=== PATIENT | female | born 1985 | race Caucasian/White ===

== ENCOUNTER 2021-11-24 17:25 | Emergency (ER) | payer OTHER ==
--- OUTSIDE RECORDS SUMMARY | 2021-11-24 17:28 | XMS REPORT | Continuity of Care Document ---
:1985 Author Organization [facility] t Address [address] [place] [address] Care Team Providers Name Role Phone PCP, DOES NOT HAVE A Primary Care Physician Unavailable TOMI Attending Clinician Unavailable MARIAA MAGANA Attending Clinician Unavailable ANENE Attending Clinician Unavailable Anene VIDEO OPERATOR Attending Clinician Payers Payer Name Policy Type Policy Number Effective Date Expiration Date [facility] [id number] 2021 MEDICAID 00:00:00 Problems Condition Condition Condition Status Onset Resolution Last Treating Co mments Source Name Details Category Date Date Treatment Clinician Date Normal Normal Disease Active Univers labor labor 1-09 ity of 00:00: [address] 38 weeks 38 weeks Disease Active Unive rs gestation gestation 1-09 ity of of of 00:00: [place] 00 [facility] Hyponatrem Hyponatrem Disease Active U dominic ia ia 08-15 ity of 00:00: [place] 00 [facility] Acute Acute Disease Active Univers cystitis cystitis 08-15 ity of without without 00:00: [place] hematuria hematuria 00 [facility] Liveborn Liveborn Disease Active Unive rs , of , of 1-09 [place] y of causey causey [place] , [place] dical born in born in [facility] by vaginal by vaginal delivery delivery Hemorrhoid Hemorrhoid Disease Active 2020-08 U dominic s, s, 2-29 ity of unspecifie unspecifie [place] 00 Medical hemorrhoid hemorrhoid Br anch type type Leg Leg Disease Active 2020-08 Univers swelling swelling 2-29 ity of in in 00:00: [place] 00 Medi tonie in third in third Branch trimester trimester Itching Itching Disease Active 2020-08 Univers 2-29 ity of 00:00: [place] [facility] Low back Low back Disease Active 2020-08 Unive rs pain pain 2-29 ity of during during 00:00: [place] 00 Medi tonie in third in third Branch trimester trimester Cough Cough Disease Active 2020-08 Univers 2-29 ity of 00:00: [place] 00 Medical Branch History of History of Disease Active 2020-08 U nivers 1-23 it y of depression depression [place] Medical currently currently Bran ch Gastroesop Gastroesop Disease Active U nivers hageal hageal 9-20 ity of reflux reflux 00:00: [place] disease disease 00 Medical without without Branch esophagiti esophagiti s s SHANTE SHANTE Disease Active Univers (stress (stress 9-20 ity of urinary urinary 00:00: [place] incontinen incontinen 00 Me dical ce, ce, Branch female) female) Morbid Morbid Disease Active Univers obesity obesity 6-24 ity of with body with body 00:00: [facility] s mass index mass index 00 Me dical of of Branch 40.0-49.9 40.0-49.9 High-risk High-risk Disease Active Uni vers 6-24 ity of in third in third 00:00: [place] trimester trimester 00 [facility] Branch Low serum Low serum Disease Active Uni vers vitamin D vitamin D 6-24 ity of 00:00: [place] 00 Medical Branch History of History of Disease Active U nivers hypothyroi hypothyroi 6-24 it y of dism dism 00:00: [place] 00 Medical Branch Allergies, Adverse Reactions, Alerts Allergy Allergy Status Severity Reaction(s) Onset Inactive Treating Comm ents Source Name Type Date Date Clinician Morphine Propensi Active Seizures Univ ers ty to 6-24 ity of adverse 00:00: [place] reaction 00 Medical s Branch MORPHINE DRUG Active Hiv Univers INGREDI 6-24 ity of 00:00: [place] 00 Medical Branch Social History Social Habit Start Date Stop Date Quantity Comments Source Exposure to Not sure University of SARS-CoV-2 [facility] (event) Branch Alcohol intake 2021-08-24 2021-08-24 Lifetime University of 00:00:00 00:00:00 non-drinker [facility] (finding) [place] Tobacco use and 2021-01-28 2021-01-28 Never used Universit y of exposure 00:00:00 00:00:00 [facility] Sex Ass[birth year] At [birth year] Universit y of 00:00:00 00:00:00 [facility] Smoking Status Start Date Stop Date Source Never smoker [facility] Medications Ordered Filled Start Stop Current Ordering Indication Dosage Frequency Signature Comments Components Source Medication Medication Date Date Medication? Clinician (SIG) Name Name Yes Take by Unive rs vit 1-18 mouth. ity of calc,iron,f 09:25: [place] [address] Medical ( Branch VITAMIN ORAL) ferrous Yes Take by Univer s sulfate 1-18 mouth. ity of (IRON ORAL) 09:25: [address] Yes Take by Unive rs vit 1-18 mouth. ity of calc,iron,f 09:25: [place] [address] Medical ( Branch VITAMIN ORAL) ferrous Yes Take by Univer s sulfate 1-18 mouth. ity of (IRON ORAL) 09:25: [address] SERTraline 2021- No [id number] 50mg Take 1 Univers (ZOLOFT) 50 08-24 tablet by it y of mg tablet 00:00: 05:59 mouth [place] 00 :00 daily for Medical 30 days. Branch traZODone 2021- No [id number] 50mg Take 1 U nivers 50 mg -24 09- tablet by ity of tablet 00:00: 05:59 mouth at [place] 00 :00 bedtime Medical for 30 Branch days. SERTraline 2021- No [id number] 50mg Take 1 Univers (ZOLOFT) 50 -24 09-18 tablet by it y of mg tablet 00:00: 05:59 mouth [place] 00 :00 daily for Medical 30 days. Branch traZODone 2021- No [id number] 50mg Take 1 U nivers 50 mg 1-18 -18 tablet by ity of tablet 00:00: 05:59 mouth at [place] 00 :00 bedtime Medical for 30 Branch days. acetaminoph Yes [id number] 1{capsu Take 1 Univers en-caff-but 1-12 le} capsule by it y of albital 00:00: mouth [place] (ESGIC) per 00 every 4 Medic al capsule (four) Branch hours as needed (headache) . cyclobenzap Yes [id number] 10mg Take 1 Univers rine 10 mg 1-12 tablet by ity of tablet 00:00: mouth 3 00 (three) Medical times Branch daily. acetaminoph Yes [id number] 1{capsu Take 1 Univers en-caff-but 1-12 le} capsule by it y of albital 00:00: mouth [place] (ESGIC) per 00 every 4 Medic al capsule (four) Branch hours as needed (headache) . cyclobenzap Yes [id number] 10mg Take 1 Univers rine 10 mg 1-12 tablet by ity of tablet 00:00: mouth 3 [place] 00 (three) Medical times Branch daily. Yes [id number] 1{tbl} Take 1 Univers vitamin 1-10 102 tablet by ity of w/FA tablet 00:00: mouth [place] 00 daily. Medical Branch docusate Yes [id number] 240mg Take 1 Univers calcium 240 1-10 102 capsule by it y of mg capsule 00:00: mouth [place] 00 daily as Medical needed for Branch Constipati on. ferrous Yes [id number] 325mg Take 1 Univers sulfate 325 1-10 102 tablet by ity of mg (65 mg 00:00: mouth 2 [place] iron) 00 (two) Medical tablet times Branch daily. ibuprofen Yes [id number] 600mg Take 1 Univers 600 mg 1-10 102 tablet by ity of tablet 00:00: mouth [place] 00 every 6 Medical (six) Branch hours as needed (Pain). Take with food or milk. Yes [id number] 1{tbl} Take 1 Univers vitamin 1-10 102 tablet by ity of w/FA tablet 00:00: mouth [place] 00 daily. Medical Branch docusate Yes [id number] 240mg Take 1 Univers calcium 240 1-10 102 capsule by it y of mg capsule 00:00: mouth once [place] 00 daily as Medical needed for Branch Constipati on. ferrous Yes [id number] 325mg Take 1 Univers sulfate 325 1-10 102 tablet by ity of mg (65 mg 00:00: mouth 2 [place] iron) 00 (two) Medical tablet times Branch daily. ibuprofen Yes [id number] 600mg Take 1 Univers 600 mg 1-10 102 tablet by ity of tablet 00:00: mouth [place] 00 every 6 Medical (six) Branch hours as needed (Pain). Take with food or milk. metoclopram 2020-08 No [id number] 10mg Take 1 Univers frank HCl 10 09-1318 tablet by ity of mg tablet 00:00: 00:00 mouth [place] 00 :00 every 6 Medical (six) Branch hours as needed for Nausea and Vomiting (N/V) or Gastroesop hageal reflux. metoclopram 2020-08 No [id number] 10mg Take 1 Univers frank HCl 10 09-1318 tablet by ity of mg tablet 00:00: 00:00 mouth [place] 00 :00 every 6 Medical (six) Branch hours as needed for Nausea and Vomiting (N/V) or Gastroesop hageal reflux. omeprazole 2020-08 Yes [id number] 40mg Take 1 Univers 40 mg 0-14 capsule by ity of capsule 00:00: mouth [place] 00 daily. Medical Branch omeprazole 2020-08 Yes [id number] 40mg Take 1 Univers 40 mg 0-14 capsule by ity of capsule 00:00: mouth [place] 00 daily. Medical Branch famotidine Yes [id number] 20mg Take 1 Univers 20 mg 9-20 tablet by ity of tablet 00:00: mouth 2 [place] 00 (two) Medical times Branch daily. famotidine Yes [id number] 20mg Take 1 Univers 20 mg 9-20 tablet by ity of tablet 00:00: mouth 2 [place] 00 (two) Medical times Branch daily. Immunizations Ordered Filled Immunization Date Status Comments [facility] e Immunization Name Name Rho (d) Immune 2021-08-16 Completed University of Globulin 00:00:00 [facility] Rho (d) Immune 2021-08-16 Completed University of Globulin 00:00:00 [facility] TDAP 2021-06-29 Completed University of 00:00:00 [facility] TDAP 2021-06-29 Completed University of 00:00:00 [facility] Rho (d) Immune 2021-06-08 Completed University of Globulin 00:00:00 [facility] Rho (d) Immune 2021-06-08 Completed University of Globulin 00:00:00 [facility] Vital Signs Vital Name Observation Time Observation Value Comments Source Systolic blood 2021-08-24 15:25:00 120 mm[Hg[facility] Diastolic blood 2021-08-24 15:25:00 82 mm[Hg] [facility] Heart rate 2021-08-24 15:25:00 86 /min [facility] Body height 2021-08-24 15:25:00 160 cm [facility] Body weight 2021-08-24 15:25:00 106.323 kg [facility] BMI 2021-08-24 15:25:00 41.52 kg/m2 [facility] Oxygen saturation 2021-08-24 15:25:00 98 /min [facility] in Arterial blood [facility] anch by Pulse oximetry Procedures This patient has no known procedures. Encounters Start End Encounter Admission Attending Care Care Encounter Source Date/Time Date/Time Type Type Clinicians Facility Department ID 2021-12-01 2021-12-01 Outpatient Gerson KRISHNA [facility] [id number] Univers 08:00:00 08:00:00 JOSE FRANCISCO [id number] ity o f [facility] 2021-10-06 2021-10-06 Outpatient MOUSTAPHA DEL CASTILLO [facility] [id number] Univers 16:15:00 16:15:00 [id number] ity [facility] 2021-09-29 2021-09-29 Outpatient MOUSTAPHA DEL CASTILLO [facility] [id number] Univers 16:15:00 16:15:00 [id number] [facility] 2021-09-16 2021-09-16 Outpatient Gerson CARY [facility] [id number] Univers 13:30:00 13:30:00 ELEAZAR bernal [facility] 2021-08-24 2021-08-[address] [facility] [id number] Univers 09:00:00 10:19:36 Visit [facility] [id number] it y of [place] [id number] [place] as JESSICA?BLEA [id number] In yung [address] MEDICAL OFFICE BUILDING 2021-08-24 2021-08-24 Outpatient R VIVIEN [facility] [id number] 09:00:00 10:19:36 ELEAZAR bernal [facility] Results This patient has no known results.
[2021-11-24] MEDS ORDERED: FAMOTIDINE 20 MG/2 ML VIAL IV ONE (18:11)
[2021-11-24 18:27] LABS: Absolute Lymphocytes (CBC) 2.4 K/uL (0.7-4.9); Hematocrit 37.9 % (36.0-45.0); Lymphocytes % 30.7 % (15.3-44.8); RBC Red Blood Cell Count 5.01 M/uL (3.86-4.86)
[2021-11-24 18:53] LABS: BUN Blood Urea Nitrogen 12 mg/dL (7-18); Bicarbonate 24 mmol/L (21-32); Glucose Level 81 mg/dL (74-106); Lipase 438 U/L (73-393); Potassium 3.5 mmol/L (3.5-5.1); Sodium Level 139 mmol/L (136-145); Troponin High Sensitivity < 3.0 pg/mL (<58.9)
[2021-11-24] MEDS ORDERED: MECLIZINE HCL 12.5 MG TAB ONE (19:03)
[2021-11-24] MEDS ORDERED: NA CHLORIDE 0.9% 1,000 ML ONE (19:15)
[2021-11-24 19:42] LABS: Urine Blood Negative (Negative); Urine Glucose Negative (Negative); Urine Protein Negative (Negative); Urine Specific Gravity 1.015 (1.005-1.030); Urine pH 5.5 (5.0-7.0)
[2021-11-24 19:47] LABS: Urine Specific Gravity/Preg 1.015 (1.005-1.030)
--- NOTE | 2021-11-24 20:14 | RAD REPORT ---
EXAM DESCRIPTION: [place] Single View11/24/2021 6:59 pm CLINICAL HISTORY: Shortness of breath COMPARISON: none FINDINGS: The lungs appear clear of acute infiltrate. The heart is normal size IMPRESSION: No acute abnormalities displayed
--- NOTE | 2021-11-24 20:16 | RAD REPORT ---
EXAM DESCRIPTION: CT - Chest For Pe Angio - 11/24/2021 8:11 pm CLINICAL HISTORY: sob COMPARISON: None. TECHNIQUE: Dynamically enhanced axial 3 mm thick images of the chest were obtained during administra tion of <100> mL Isovue 370 IV contrast. Coronal and oblique reconstruction images were generated and reviewed. Exam utilizes a protocol for optimal evaluation of pulmonary arterial tree. Maximum intensity projections 3D imaging was utilized All CT scans are performed using dose optimization technique as appropriate and may include automated exposure control or mA/KV adjustment according to patient size. FINDINGS: A pulmonary embolus is not seen. A thoracic aortic aneurysm is not noted. A pleural effusion is not seen. A pericardial effusion is not seen. A lung consolidation is not present. 19 millimeter splenic lesion. Hounsfield unit 19 IMPRESSION: Negative for a pulmonary embolism. 19 millimeter splenic lesion probably benign. It is recommended that the patient have a followup ultr asound in 3 months for re-evaluation
--- NOTE | 2021-11-24 20:32 | ER ---
Nurse's Notes [facility] Name: Marivel Loya Age: 36 yrs Sex: Female : 1985 Arrival Date: 11/24/2021 Time: 17:26 Bed 23 Private MD: Jose Valadez E Diagnosis: Chest pain, unspecified Presentation: 11/24 17:30 Chief complaint: Patient states: past 4-5 days has been feeling dizzy and her back iw between her shoulder blades hurts and is having heart burn. Coronavirus screen: At this time, the client does not indicate any symptoms associated with coronavirus-19. Ebola Screen: Patient negative for fever greater than or equal to 101.5 degrees Fahrenheit, and additional compatible Ebola Virus Disease symptoms Patient denies exposure to infectious person. Patient denies travel to an Ebola-affected area in the 21 days before illness onset. No symptoms or risks identified at this time. Initial Sepsis Screen: Does the patient meet any 2 criteria? No. Patient's initial sepsis screen is negative. Does the patient have a suspected source of infection? No. Patient's initial sepsis screen is negative. Risk Assessment: Do you want to hurt yourself or someone else? Patient reports no desire to harm self or others. Onset of symptoms was November 20, 2021. 17:30 Method Of Arrival: Ambulatory iw 17:30 Acuity: JOHN 3 iw Historical: - Allergies: 17:32 Morphine; iw - PSHx: 17:31 Tonsillectomy; Cholecystectomy; iw Vital Signs: 17:32 BP 134 / 68; Pulse 89; Resp 16; Weight 111.13 kg; Height 5 ft. 3 in. (160.02 cm); iw 17:32 Body Mass Index 43.40 (111.13 kg, 160.02 cm) iw ED Course: 17:26 Patient arrived in ED. am2 17:26 Jose Valadez MD is Private Physician. am2 17:26 [facility]agen[facility]C [facility] la1 17:26 Saroj Lemos MD is Attending Physician. la1 17:31 Triage completed. iw 18:04 Sammy Torres, RN is Primary Nurse. jb4 19:01 XRAY Chest (1 view) In Process Unspecified. EDMS 20:13 Chest For PE Angio CT In Process Unspecified. EDMS 21:00 No provider procedures requiring assistance completed. fu 21:30 IV discontinued, bleeding controlled, Pressure dressing applied. fu Administered Medications: 18:22 Drug: Pepcid (famotidine) 20 mg Route: IVP; Site: right forearm; jb4 19:04 Drug: Meclizine 25 mg Route: PO; jb4 19:14 Drug: NS 0.9% 1000 ml Route: IV; Rate: 1000 ml; Site: right forearm; jb4 20:41 Drug: KLONopin (clonazePAM) 0.5 mg Route: PO; fu 21:33 Follow up: Response: Anxiety decreased fu Outcome: 20:31 Discharge ordered by . la1 21:33 Discharged to home ambulatory. fu 21:33 Condition: good 21:33 Discharge instructions given to patient, Instructed on discharge instructions, follow up and referral plans. Demonstrated understanding of instructions, follow-up care, Prescriptions given X 0 21:54 Patient left the ED. tw5 Signatures: Dispatcher [employer] EDNY Sandra oSod RN Will Sanchez, DATA CONVERSION ANALYST-C DATA CONVERSION ANALYST-Cla1 Sammy Torres RN RN jb4 Antionette Resendiz Felix, Diane Churchill RN tw5
--- NOTE | 2021-11-24 20:32 | EDPHYS ---
Physician Documentation [facility] Name: Marivel Loya Age: 36 yrs Sex: Female : 1985 Arrival Date: 11/24/2021 Time: 17:26 Bed 23 Private MD: Jose Valadez E ED Physician Saroj Lemos HPI: 11/24 17:38 This 36 yrs old Female presents to ER via Ambulatory with complaints of Dizziness, la1 Chest Pain, Back Pain - soreness. 17:38 The patient or guardian reports chest pain that is located primarily in the epigastric la1 area. The pain radiates to the left shoulder, the left scapula, back. Associated signs and symptoms: Pertinent positives: palpitations, shortness of breath, Pertinent negatives: diaphoresis, nausea, near syncope. Duration: The patient or guardian reports multiple episodes, with no pattern. Modifying factors: The symptoms are alleviated by nothing. the symptoms are aggravated by nothing. Severity of pain: At its worst the pain was moderate in the emergency department the pain has improved. Patient reports that for the last 3 to 4 days she has felt that she has had palpitations, dizziness, epigastric pain along with pain over her left shoulder to her back.. Historical: - Allergies: 17:32 Morphine; iw - PSHx: 17:31 Tonsillectomy; Cholecystectomy; iw ROS: 17:39 Constitutional: Negative for fever, chills, and weight loss, Eyes: Negative for injury, la1 pain, redness, and discharge, ENT: Negative for injury, pain, and discharge, Neck: Negative for injury, pain, and swelling. 17:39 Abdomen/GI: Positive for epigastric pain Back: Positive for back pain 17:39 Skin: Negative for injury, rash, and discoloration, Neuro: Negative for headache, weakness, numbness, tingling, and seizure, Psych: Negative for depression, anxiety, suicide ideation, homicidal ideation, and hallucinations. 17:39 Cardiovascular: Positive for chest pain, orthopnea. 17:39 Respiratory: Positive for dyspnea on exertion. Exam: 17:40 Constitutional: This is a well developed, well nourished patient who is awake, alert, la1 and in no acute distress. Head/Face: Normocephalic, atraumatic. Eyes: Pupils equal round and reactive to light, extra-ocular motions intact. ENT: Nares patent. No nasal discharge, no septal abnormalities noted. Neck: Trachea midline, Supple, full range of motion without nuchal rigidity Chest/axilla: Normal chest wall appearance and motion. Nontender with no deformity. No lesions are appreciated. Cardiovascular: Regular rate and rhythm with a normal S1 and S2. No gallops, murmurs, or rubs. Normal PMI, no JVD. No pulse deficits. Respiratory: Lungs have equal breath sounds bilaterally, clear to auscultation and percussion. Abdomen/GI: Soft, non-tender, with normal bowel sounds. MS/ Extremity: Pulses equal, no cyanosis. Neurovascular intact. Full, normal range of motion. Neuro: Awake and alert, GCS 15, oriented to person, place, time, and situation. 19:05 ECG was reviewed by the Attending Physician. la1 Vital Signs: 17:32 BP 134 / 68; Pulse 89; Resp 16; Weight 111.13 kg; Height 5 ft. 3 in. (160.02 cm); iw 17:32 Body Mass Index 43.40 (111.13 kg, 160.02 cm) iw MDM: 17:35 Patient medically screened. gudelia 20:29 Data reviewed: vital signs, nurses notes, radiologic studies, CT scan, plain films, and la1 as a result, I will discharge patient. Data interpreted: Pulse oximetry: on room air is 98 %. Interpretation: normal. Counseling: I had a detailed discussion with the patient and/or guardian regarding: the historical points, exam findings, and any diagnostic results supporting the discharge/admit diagnosis, lab results, radiology results, the need for outpatient follow up, a cut off machine helper, a family practitioner, to return to the emergency department if symptoms worsen or persist or if there are any questions or concerns that arise at home. ED course: Cardiac work-up including CT PE protocol negative for acute findings, did notify patient of 19 mm lesion on the spleen that recommended 3-month follow-up ultrasound. Patient appears to be very anxious, tearful at this time but understanding. Suspect this is somewhat related to anxiety patient does have cardiology appointment early next week as well lined up. Instructed patient to keep her appointment with cardiology return to the emergency department for any new or worsening symptoms, will provide patient with dose of oral anxiolytic in the emergency department while she waits for her ride to see if this helps with her symptoms.. 11/24 17:37 Order name: Basic Metabolic Panel; Complete Time: 18:55 la1 11/24 17:37 Order name: CBC with Diff; Complete Time: 18:55 la1 11/24 17:37 Order name: D-Dimer; Complete Time: 18:55 la1 11/24 17:37 Order name: Troponin HS; Complete Time: 18:55 la1 11/24 17:37 Order name: Lipase; Complete Time: 18:55 la1 11/24 17:37 Order name: TSH; Complete Time: 18:55 la1 11/24 17:37 Order name: XRAY Chest (1 view); Complete Time: 20:18 la1 11/24 18:46 Order name: Chest For PE Angio CT; Complete Time: 20:18 la1 11/24 19:42 Order name: Urine Dipstick-Ancillary; Complete Time: 19:59 EDMS 11/24 19:43 Order name: Urine --Ancillary (enter results); Complete Time: 19:59 ds4 11/24 17:37 Order name: EKG; Complete Time: 17:37 la11/24 17:37 Order name: Cardiac monitoring; Complete Time: 18:04 la1 11/24 17:37 Order name: EKG - Nurse/Tech; Complete Time: 17:55 la1 11/24 17:37 Order name: IV Saline Lock; Complete Time: 18:56 la1 11/24 17:37 Order name: Labs collected and sent; Complete Time: 18:04 la1 11/24 17:37 Order name: O2 Per Protocol; Complete Time: 18:04 la11/24 17:37 Order name: O2 Sat Monitoring; Complete Time: 18:04 la1 EC:05 Rate is 86 beats/min. Rhythm is regular. QRS Wheeler is Normal. AR interval is normal. QRS la1 interval is normal. QT interval is normal. No Q waves. T waves are Inverted in leads aVR, V1. No ST changes noted. Clinical impression: Normal ECG. Interpreted by me. Reviewed by me. Administered Medications: 18:22 Drug: Pepcid (famotidine) 20 mg Route: IVP; Site: right forearm; jb4 19:04 Drug: Meclizine 25 mg Route: PO; jb4 19:14 Drug: NS 0.9% 1000 ml Route: IV; Rate: 1000 ml; Site: right forearm; jb4 20:41 Drug: KLONopin (clonazePAM) 0.5 mg Route: PO; fu 21:33 Follow up: Response: Anxiety decreased fu Disposition Summary: 11/24/21 20:31 Discharge Ordered Location: Home la1 Problem: new la1 Symptoms: have improved la1 Condition: Stable la1 Diagnosis - Chest pain, unspecified la1 Followup: la1 - With: Private Physician - When: 2 - 3 days - Reason: Recheck today's complaints, Re-evaluation by your physician Followup: la1 - With: Emergency Department - When: As needed - Reason: Worsening of condition Discharge Instructions: - Discharge Summary Sheet la1 - Nonspecific Chest Pain, Adult la1 - Food Choices for Gastroesophageal Reflux Disease, Adult la1 - Gastroesophageal Reflux Disease, Adult la1 - Generalized Anxiety Disorder, Adult la1 Forms: - Medication Reconciliation Form la1 - Thank You Letter la1 Addendum: 11/26/2021 07:52 Co-signature as Attending Physician, Saroj Lemos MD I agree with the assessment and c jaramillo plan of care. Signatures: Dispatcher [employer] Saroj Grider MD MD cha Williams, Irene, RN RN iw Will Cartagena, FEATHER TRIMMER-C FEATHER TRIMMER-Cla1 Sammy Torres RN RN jb4 Yg Dominguez RN RN
[2021-11-24] MEDS ORDERED: clonazePAM 0.5 MG TAB ONE (20:41)
[2021-11-25 04:12] VITALS: BP 134/68
--- NOTE | 2021-11-25 07:55 | EKG ---
Test Date: 2021-11-24 Test Time: 17:54:23 Tile Applicator: SHAMAR MEASUREMENT RESULTS: Intervals: Rate: 86 FL: 164 QRSD: 86 QT: 362 QTc: 433 [place]: P: 47 FL: 164 QRS: 7 T: 42 INTERPRETIVE STATEMENTS: Normal sinus rhythm Normal ECG No previous ECG available for comparison Electronically Signed On 11-25-21 07:54:27 CDT by Kanu Steiner
== END 2021-11-24 21:54 | disposition home or self-care (01) ==
LOC: ER 17:25
DX: R07.9 Chest pain, unspecified (principal); R00.2 Palpitations; R10.13 Epigastric pain; R06.00 Dyspnea, unspecified; Z88.5 Allergy status to narcotic agent
CPT/HCPCS: 93005; 85025; 80048; 36415; 81025; 85379; 84443; 81003; 84484; 83690; 71275; 71045; 96374; 99283; Q9967; J8597; J7030; J3490

== ENCOUNTER 2021-11-29 00:27 | Emergency (ER) | payer OTHER ==
--- OUTSIDE RECORDS SUMMARY | 2021-11-29 00:31 | XMS REPORT | Continuity of Care Document ---
:1985 Author Organization [facility] t Address [address] [place] [address] Care Team Providers Name Role Phone PCP, DOES NOT HAVE A Primary Care Physician Unavailable TOMI Attending Clinician Unavailable MARIAA MAGANA Attending Clinician Unavailable ANENE Attending Clinician Unavailable Anene CLIENT SERVICE EXECUTIVE Attending Clinician Payers Payer Name Policy Type Policy Number Effective Date Expiration Date [facility] [id number] 2021 MEDICAID 00:00:00 Problems Condition Condition Condition Status Onset Resolution Last Treating Co mments Source Name Details Category Date Date Treatment Clinician Date Normal Normal Disease Active Univers labor labor 08-15 ity of 00:00: [address] 38 weeks 38 weeks Disease Active Unive rs gestation gestation 08-15 ity of of of 00:00: [place] 00 [facility] Hyponatrem Hyponatrem Disease Active U dominic ia ia 08-15 ity of 00:00: [address] Acute Acute Disease Active Univers cystitis cystitis 08-15 ity of without without 00:00: [place] hematuria hematuria 00 [facility] Liveborn Liveborn Disease Active Unive rs , of infant, of 09 it y of causey causey 00:00: Angeli s , , 00 Me dical born in born in [facility] by vaginal by vaginal delivery delivery Hemorrhoid Hemorrhoid Disease Active 2020-08 U dominic s, s, 2-29 ity of unspecifie [place]if[place] 00 Medical hemorrhoid hemorrhoid Br anch type type Leg Leg Disease Active 2020-08 Univers swelling swelling 2-29 ity of in in 00:00: [place] 00 Medi tonie in third in third Branch trimester trimester Itching Itching Disease Active 2020-08 Univers 2-29 ity of 00:00: [place] [facility] Low back Low back Disease Active 2020-08 Unive rs pain pain 2-29 ity of during during 00:00: [place] 00 Medi tonie in third in third Branch trimester trimester Cough Cough Disease Active 2020-08 Univers 2-29 ity of 00:00: [place] 00 Medical Branch History of History of Disease Active 2020-08 U nivers 1-23 it y of depression depression 00:00: Tim keenan , , 00 Medical currently currently Bran ch Gastroesop Gastroesop Disease Active U nivers hageal hageal 9-20 ity of reflux reflux 00:00: [place] disease disease 00 Medical without without Branch esophagiti esophagiti s s SHANTE SHANTE Disease Active Univers (stress (stress 9-20 ity of urinary urinary 00:00: [place] incontinen incontinen 00 Me dical ce, ce, Branch female) female) Morbid Morbid Disease Active Univers obesity obesity 6-24 ity of with body with body 00:00: [facility] s mass index mass index 00 Me dical of of Branch 40.0-49.9 40.0-49.9 High-risk High-risk Disease Active Uni vers 6-24 ity of in third in third 00:00: [place] trimester trimester 00 [facility] Branch Low serum Low serum Disease Active Uni vers vitamin D vitamin D 6-24 ity of 00:00: [place] 00 Medical Branch History of History of Disease Active U nivers hypothyroi hypothyroi 6-24 it y of dism dism 00:00: [place] 00 Medical Branch Allergies, Adverse Reactions, Alerts Allergy Allergy Status Severity Reaction(s) Onset Inactive Treating Comm ents Source Name Type Date Date Clinician Morphine Propensi Active Hiv Seizures Univ ers ty to 6-24 ity of adverse 00:00: [place] reaction 00 Medical s Branch MORPHINE DRUG Active Hiv Univers INGREDI 6-24 ity of 00:00: [address] Social History Social Habit Start Date Stop Date Quantity Comments Source Exposure to Not sure University SARS-CoV-2 [facility] (event) Branch Alcohol intake 2021-08-24 2021-08-24 Lifetime University of 00:00:00 00:00:00 non-drinker [facility] (finding) [place] Tobacco use and 2021-01-28 2021-01-28 Never used Universit y of exposure 00:00:00 00:00:00 [facility] Sex [birth year] Universit y of 00:00:00 00:00:00 [facility] Smoking Status Start Date Stop Date Source Never smoker [facility] Medications Ordered Filled Start Stop Current Ordering Indication Dosage Frequency Signature Comments Components Source Medication Medication Date Date Medication? Clinician (SIG) Name Name Yes Take by Unive rs vit 1-18 mouth. ity of calc,iron,f 09:25: [place] [address] Medical ( Branch VITAMIN ORAL) ferrous Yes Take by Univer s sulfate 1-18 mouth. ity of (IRON ORAL) 09:25: [address] Yes Take by Unive rs vit 1-18 mouth. ity of calc,iron,f 09:25: [place] [address] Medical ( Branch VITAMIN ORAL) ferrous Yes Take by Univer s sulfate 1-18 mouth. ity of (IRON ORAL) 09:25: [address] SERTraline 2- No [id number] 50mg Take 1 Univers (ZOLOFT) 50 08-24 tablet by it y of mg tablet 00:00: 05:59 mouth [place] 00 :00 daily for Medical 30 days. Branch traZODone 2021- No [id number] 50mg Take 1 U nivers 50 mg -18 -18 tablet by ity of tablet 00:00: 05:59 mouth at [place] 00 :00 bedtime Medical for 30 Branch days. SERTraline 2021- No [id number] 50mg Take 1 Univers (ZOLOFT) 50 -18 -18 tablet by it y of mg tablet 00:00: 05:59 mouth [place] 00 :00 daily for Medical 30 days. Branch traZODone 2021- No [id number] 50mg Take 1 U nivers 50 mg 1-18 -18 tablet by ity of tablet 00:00: 05:59 mouth at [place] 00 :00 bedtime Medical for 30 Branch days. acetaminoph Yes [id number] 1{capsu Take 1 Univers en-caff-but 1-12 le} capsule by it y of albital 00:00: mouth [place] (ESGIC) per 00 every 4 Medic al capsule (four) Branch hours as needed (headache) . cyclobenzap Yes [id number] 10mg Take 1 Univers rine 10 mg 1-12 tablet by ity of tablet 00:00: mouth 3 [place] 00 (three) Medical times Branch daily. acetaminoph Yes [id number] 1{capsu Take 1 Univers en-caff-but 1-12 le} capsule by it y of albital 00:00: mouth [place] (ESGIC) per 00 every 4 Medic al capsule (four) Branch hours as needed (headache) . cyclobenzap Yes [id number] 10mg Take 1 Univers rine 10 mg 1-12 tablet by ity of tablet 00:00: mouth 3 [place] 00 (three) Medical times Branch daily. Yes [id number] 1{tbl} Take 1 Univers vitamin 1-10 102 tablet by ity of w/FA tablet 00:00: mouth [place] 00 daily. Medical Branch docusate Yes [id number] 240mg Take 1 Univers calcium 240 1-10 102 capsule by it y of mg capsule 00:00: mouth once [place] 00 daily as Medical needed for Branch Constipati on. ferrous Yes [id number] 325mg Take 1 Univers sulfate 325 1-10 102 tablet by ity of mg (65 mg 00:00: mouth 2 [place] iron) 00 (two) Medical tablet times Branch daily. ibuprofen Yes [id number] 600mg Take 1 Univers 600 mg 1-10 102 tablet by ity of tablet 00:00: mouth [place] 00 every 6 Medical (six) Branch hours as needed (Pain). Take with food or milk. 2021- Yes [id number] 1{tbl} Take 1 Univers vitamin 1-10 102 tablet by ity of w/FA tablet 00:00: mouth [place] 00 daily. Medical Branch docusate Yes [id number] 240mg Take 1 Univers calcium 240 1-10 102 capsule by it y of mg capsule 00:00: mouth once [place] 00 daily as Medical needed for Branch Constipati on. ferrous Yes [id number] 325mg Take 1 Univers sulfate 325 1-10 102 tablet by ity of mg (65 mg 00:00: mouth 2 [place] iron) 00 (two) Medical tablet times Branch daily. ibuprofen Yes [id number] 600mg Take 1 Univers 600 mg 1-10 102 tablet by ity of tablet 00:00: mouth [place] 00 every 6 Medical (six) Branch hours as needed (Pain). Take with food or milk. metoclopram 2020-08- No [id number] 10mg Take 1 Univers frank HCl 10 2-02 04-18 tablet by ity of mg tablet 00:00: 00:00 mouth [place] 00 :00 every 6 Medical (six) Branch hours as needed for Nausea and Vomiting (N/V) or Gastroesop hageal reflux. metoclopram 2020-08- No [id number] 10mg Take 1 Univers frank HCl 10 2-02 04-18 tablet by ity of mg tablet 00:00: 00:00 mouth [place] 00 :00 every 6 Medical (six) Branch hours as needed for Nausea and Vomiting (N/V) or Gastroesop hageal reflux. omeprazole 2020-08 Yes [id number] 40mg Take 1 Univers 40 mg 0-14 capsule by ity of capsule 00:00: mouth [place] 00 daily. Medical Branch omeprazole 2020-08 Yes [id number] 40mg Take 1 Univers 40 mg 0-14 capsule by ity of capsule 00:00: mouth [place] 00 daily. Medical Branch famotidine Yes [id number] 20mg Take 1 Univers 20 mg 9-20 tablet by ity of tablet 00:00: mouth 2 [place] 00 (two) Medical times Branch daily. famotidine Yes [id number] 20mg Take 1 Univers 20 mg 9-20 tablet by ity of tablet 00:00: mouth 2 [place] 00 (two) Medical times Branch daily. Immunizations Ordered Filled Immunization Date Status Comments Sourc e Immunization Name Name Rho (d) Immune 2021-08-16 Completed University of Globulin 00:00:00 [facility] Rho (d) Immune 2021-08-16 Completed University of Globulin 00:00:00 [facility] TDAP 2021-06-29 Completed University of 00:00:00 [facility] TDAP 2021-06-29 Completed University of 00:00:00 [facility] Rho (d) Immune 2021-06-08 Completed University of Globulin 00:00:00 [facility] Rho (d) Immune 2021-06-08 Completed University of Globulin 00:00:00 [facility] Vital Signs Vital Name Observation Time Observation Value Comments Source Systolic blood 2021-08-24 15:25:00 120 mm[Hg[facility] Diastolic blood 2021-08-24 15:25:00 82 mm[Hg] [facility] Heart rate 2021-08-24 15:25:00 86 /min [facility] Body height 2021-08-24 15:25:00 160 cm [facility] Body weight 2021-08-24 15:25:00 106.323 kg [facility] BMI 2021-08-24 15:25:00 41.52 kg/m2 [facility] Oxygen saturation 2021-08-24 15:25:00 98 /min [facility] in Arterial blood [facility] anch by Pulse oximetry Procedures This patient has no known procedures. Encounters Start End Encounter Admission Attending Care Care Encounter Source Date/Time Date/Time Type Type Clinicians Facility Department ID 2021-12-01 2021-12-01 Outpatient Gerson KRISHNA [facility] [id number] Univers 08:00:00 08:00:00 JOSE FRANCISCO [id number] ity o f [facility] 2021-10-06 2021-10-06 Outpatient MOUSTAPHA DEL CASTILLO [facility] [id number] Univers 16:15:00 [facility]15:[id number] 2021-09-29 Outpatient MOUSTAPHA DEL CASTILLO [facility] [id number] Univers 16:15:00 16:15:00 [id number] [facility] 2021-09-16 2021-09-16 Outpatient Gerson CARY [facility] [id number] Univers 13:30:00 13:30:00 ELEAZAR bernal [facility] 2021-08-24 2021-08-[address] [facility] [id number] Univers 09:00:00 10:19:36 Visit [facility] [id number] it y of [place] [id number] [place] as JESSICA?BLEA [id number] Ny yung [address] MEDICAL OFFICE BUILDING 2021-08-24 2021-08-24 Outpatient Gerson CARY [facility] [id number] Univers 09:00:00 10:19:36 ELEAZAR bernal [facility] Results This patient has no known results.
[2021-11-29 01:40] LABS: Absolute Lymphocytes (CBC) 2.3 K/uL (0.7-4.9); Hematocrit 34.4 % (36.0-45.0); Lymphocytes % 29.1 % (15.3-44.8); MPV 7.9 fL (7.6-11.3); RBC Red Blood Cell Count 4.62 M/uL (3.86-4.86)
[2021-11-29 01:54] LABS: Potassium 3.6 mmol/L (3.5-5.1); Troponin High Sensitivity 3.1 pg/mL (<58.9)
[2021-11-29] MEDS ORDERED: MECLIZINE HCL 12.5 MG TAB ONE (01:56)
[2021-11-29] MEDS ORDERED: FAMOTIDINE 20 MG/2 ML VIAL IV ONE (01:57)
[2021-11-29] MEDS ORDERED: NA CHLORIDE 0.9% 500 ML ONE (01:57)
[2021-11-29] MEDS ORDERED: KETOROLAC 30 MG/ML INJ ONE (01:57)
[2021-11-29] MEDS ORDERED: ONDANSETRON 4 MG/2 ML VIAL ONE (01:57)
[2021-11-29] MEDS ORDERED: DIAZEPAM 10 MG/2 ML INJ SYRINGE ONE (04:21)
--- NOTE | 2021-11-29 06:41 | ER ---
Nurse's Notes [facility] Name: Marivel Loya Age: 36 yrs Sex: Female : 1985 Arrival Date: 11/29/2021 Time: 00:36 Bed 20 Private MD: Diagnosis: Chest pain, unspecified;Abdominal pain, unspecified;Upper abdominal pain, unspecified;Epigastric pain;Dizziness and giddiness;Anxiety disorder, unspecified Presentation: 11/29 00:39 Chief complaint: EMS states: pt was asleep at home and felt like her heart popped and kd3 it caused her to wake up in panic. pt had medications prescribed to her for anxiety but she had not been taking them. pt currently complaining of chest tightness and numbness in her back. Coronavirus screen: Vaccine status: Patient reports being unvaccinated. Ebola Screen: No symptoms or risks identified at this time. Initial Sepsis Screen: Does the patient meet any 2 criteria? No. Patient's initial sepsis screen is negative. Does the patient have a suspected source of infection? No. Patient's initial sepsis screen is negative. Risk Assessment: Do you want to hurt yourself or someone else? Patient reports no desire to harm self or others. Onset of symptoms was November 29, 2021. 00:39 Method Of Arrival: EMS kd3 00:39 Acuity: JOHN 3 kd3 Triage Assessment: 00:43 General: Appears uncomfortable, Behavior is anxious. Pain: Complains of pain in xiphoid kd3 area Pain radiates to thoracic area. 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 - Social history:: Smoking status: unknown. Screenin:44 Abuse screen: Denies threats or abuse. Denies injuries from another. Nutritional kd3 screening: No deficits noted. Tuberculosis screening: No symptoms or risk factors identified. Fall Risk None identified. Assessment: 03:09 General: Appears uncomfortable, Behavior is anxious, crying. Neuro: Level of kd3 Consciousness is awake, alert, obeys commands, Oriented to person, place, time, situation. Cardiovascular: Patient's skin is warm and dry. Respiratory: Airway is patent Trachea midline Respiratory effort is even, unlabored, Respiratory pattern is regular, symmetrical. GI: No signs and/or symptoms were reported involving the gastrointestinal system. : No signs and/or symptoms were reported regarding the genitourinary system. EENT: No signs and/or symptoms were reported regarding the EENT system. Derm: Skin is intact, Skin is pink, warm \T\ dry. 04:00 Reassessment: No changes from previously documented assessment. kd3 05:34 Reassessment: pt to take 1 of her own anti anxiety medication. clonazepam 0.5 mg taken. kd3 pt being monitored. pt now resting comfortably in bed. no adverse reaction. vital stable. Vital Signs: 00:39 BP 120 / 61; Pulse 81; Resp 18; Temp 98.2; Pulse Ox 99% on R/A; Weight 111.13 kg; kd3 Height 5 ft. 3 in. (160.02 cm); Pain 2/10; 03:10 BP 122 / 63; Pulse 71; Resp 14; Pulse Ox 98% on R/A; kd3 05:36 BP 115 / 62; Pulse 61; Resp 16; Pulse Ox 98% on R/A; kd3 06:59 BP 121 / 60; Pulse 61; Resp 17; Pulse Ox 99% on R/A; kd3 00:39 Body Mass Index 43.40 (111.13 kg, 160.02 cm) kd3 ED Course: 00:36 Patient arrived in ED. mw2 00:38 Jenny Pelletier, SKIP is Primary Nurse. kd3 00:43 Triage completed. kd3 00:43 Arm band placed on right wrist. kd3 00:44 Patient has correct armband on for positive identification. Placed in gown. Bed in low kd3 position. Side rails up X 1. 00:46 En Garcia MD is Attending Physician. kdr 01:15 XRAY Chest (1 view) In Process Unspecified. EDMS 01:28 Inserted saline lock: 22 gauge in right wrist, using aseptic technique. sm5 02:37 CT Head Brain wo Cont In Process Unspecified. EDMS 06:58 No provider procedures requiring assistance completed. IV discontinued, intact, kd3 bleeding controlled, No redness/swelling at site. Pressure dressing applied. Administered Medications: 02:08 Drug: Pepcid (famotidine) 20 mg Route: IVP; Site: right wrist; kd3 07:00 Follow up: Response: No adverse reaction kd3 02:08 Not Given (Patient Refused): Ketorolac 15 mg IVP once kd3 02:08 Drug: Meclizine 25 mg Route: PO; kd3 07:00 Follow up: Response: No adverse reaction kd3 02:09 Drug: Zofran (Ondansetron) 4 mg Route: IVP; Site: right wrist; kd3 07:00 Follow up: Response: No adverse reaction kd3 02:09 Drug: NS 0.9% 500 ml Route: IV; Rate: bolus; Site: right wrist; kd3 07:00 Follow up: Rate change 100 ml; IV Status: Completed infusion kd3 07:00 Follow up: Response: No adverse reaction kd3 04:46 CANCELLED (iv infiltration ): Valium (diazepam) 5 mg IVP once kd3 Outcome: 06:40 Discharge ordered by . kdr 06:58 Discharged to home ambulatory. kd3 06:58 Condition: stable 06:58 Discharge instructions given to patient, Instructed on discharge instructions, follow up and referral plans. medication usage, Demonstrated understanding of instructions, follow-up care, medications. 07:04 Patient left the ED. bp Signatures: Dispatcher [employer] EDMS En Garcia MD MD kdr Peltier, Brian, RN RN bp Alda Henry 2 Jenny Pelletier RN RN kd3 Cara Dumont RN RN sm5
--- NOTE | 2021-11-29 06:41 | EDPHYS ---
Physician Documentation [facility] Name: Marivel Loya Age: 36 yrs Sex: Female : 1985 Arrival Date: 11/29/2021 Time: 00:36 Bed 20 Private MD: ED Physician En Garcia HPI: 11/29 04:08 This 36 yrs old Female presents to ER via EMS with complaints of Epigastric Pain. kdr 04:08 The patient or guardian reports chest pain that is located primarily in the substernal kdr area, anterior chest wall, left. The pain does not radiate. Associated signs and symptoms: Pertinent positives: dizziness, headache, lightheadedness, nausea, shortness of breath, Pertinent negatives: cough, diaphoresis, recent travel, shortness of breath, syncope, vomiting. The chest pain is described as aching, dull, a pressure, Actually felt like she had a popping that occurred. That awoke her from sleep and then she asked her to help her. Duration: The patient or guardian reports a single episode, that is still ongoing, but improving. Modifying factors: The symptoms are alleviated by nothing. the symptoms are aggravated by nothing. Severity of pain: At its worst the pain was moderate severe in the emergency department the pain is unchanged. Patient states that she has a history of panic attacks but this does not feel like her prior attacks. She is she states that this feels different" she cannot necessarily describe how it is different.. The patient has not recently seen a physician. 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 - Social history:: Smoking status: unknown. ROS: 04:08 Constitutional: Negative for fever, chills, and weight loss, Eyes: Negative for injury, kdr pain, redness, and discharge, ENT: Negative for injury, pain, and discharge, Neck: Negative for injury, pain, and swelling, Respiratory: Negative for shortness of breath, cough, wheezing, and pleuritic chest pain, Abdomen/GI: Negative for abdominal pain, nausea, vomiting, diarrhea, and constipation, Back: Negative for injury and pain, : Negative for injury, bleeding, discharge, and swelling, MS/Extremity: Negative for injury and deformity, Skin: Negative for injury, rash, and discoloration, Neuro: Negative for headache, weakness, numbness, tingling, and seizure activity. Psych: Negative for depression, anxiety, suicide ideation, homicidal ideation, and hallucinations, Allergy/Immunology: Negative for hives, rash, and allergies, Endocrine: Negative for neck swelling, polydipsia, polyuria, polyphagia, and marked weight changes, Hematologic/Lymphatic: Negative for swollen nodes, abnormal bleeding, and unusual bruising. 04:08 Neuro: Positive for She states that with the initial pain, her tongue was numb for a brief period. Exam: 04:08 Constitutional: This is a well developed, well nourished patient who is awake, alert, kdr and in mild distress. Head/Face: Normocephalic, atraumatic. Eyes: Pupils equal round and reactive to light, extra-ocular motions intact. Lids and lashes normal. Conjunctiva and sclera are non-icteric and not injected. Cornea within normal limits. Periorbital areas with no swelling, redness, or edema. Neck: Trachea midline, no thyromegaly or masses palpated, and no cervical lymphadenopathy. Supple, full range of motion without nuchal rigidity, or vertebral point tenderness. No Meningismus. Cardiovascular: Regular rate and rhythm with a normal S1 and S2. No gallops, murmurs, or rubs. Normal PMI, no JVD. No pulse deficits. Respiratory: Lungs have equal breath sounds bilaterally, clear to auscultation and percussion. No rales, rhonchi or wheezes noted. No increased work of breathing, no retractions or nasal flaring. Abdomen/GI: Soft, non-tender, with normal bowel sounds. No distension or tympany. No guarding or rebound. No evidence of tenderness throughout. Back: No spinal tenderness. No costovertebral tenderness. Full range of motion. Skin: Warm, dry with normal turgor. Normal color with no rashes, no lesions, and no evidence of cellulitis. MS/ Extremity: Pulses equal, no cyanosis. Neurovascular intact. Full, normal range of motion. Neuro: Awake and alert, GCS 15, oriented to person, place, time, and situation. Cranial nerves II-XII grossly intact. Motor strength 5/5 in all extremities. Sensory grossly intact. Cerebellar exam normal. Normal gait. Psych: Awake, alert, with orientation to person, place and time. Behavior, mood, and affect are within normal limits. Vital Signs: 00:39 BP 120 / 61; Pulse 81; Resp 18; Temp 98.2; Pulse Ox 99% on R/A; Weight 111.13 kg; kd3 Height 5 ft. 3 in. (160.02 cm); Pain 2/10; 03:10 BP 122 / 63; Pulse 71; Resp 14; Pulse Ox 98% on R/A; kd3 05:36 BP 115 / 62; Pulse 61; Resp 16; Pulse Ox 98% on R/A; kd3 06:59 BP 121 / 60; Pulse 61; Resp 17; Pulse Ox 99% on R/A; kd3 00:39 Body Mass Index 43.40 (111.13 kg, 160.02 cm) kd3 MDM: 04:07 Data reviewed: vital signs, nurses notes, lab test result(s), radiologic studies. ED kdr course: Patient states that she is still dizzy but otherwise seems to be stable at this time. She has had meclizine and the other meds previously ordered. Overall she feels improved but nonetheless is still somewhat dizzy. We will address the continuing dizziness with some Valium IV. ED course: Explained to her that given her chest pain and discomfort, we will repeat a troponin in an hour or so. 04:08 Differential diagnosis: acute pericarditis, anxiety, gastroesophageal reflux disease kdr (GERD). 06:40 Patient medically screened. kdr 11/29 00:46 Order name: Basic Metabolic Panel; Complete Time: 02:47 kdr 11/29 00:46 Order name: CBC with Diff; Complete Time: 01:41 kdr 11/29 00:46 Order name: Troponin HS; Complete Time: 02:47 kdr 11/29 00:46 Order name: XRAY Chest (1 view) kdr 11/29 01:48 Order name: CT Head Brain wo Cont kdr 11/29 05:11 Order name: Troponin High Sensitivity; Complete Time: 06:42 kdr 11/29 00:46 Order name: EKG; Complete Time: 00:47 kdr 11/29 00:46 Order name: Cardiac monitoring; Complete Time: 01:00 kdr 11/29 00:46 Order name: EKG - Nurse/Tech; Complete Time: 16 kdr 11/29 00:46 Order name: IV Saline Lock; Complete Time: : kdr 11/29 00:46 Order name: Labs collected and sent; Complete Time: 01:30 kdr 11/29 00:46 Order name: O2 Per Protocol; Complete Time: kdr 11/29 00:46 Order name: O2 Sat Monitoring; Complete Time: : kdr Administered Medications: 02:08 Drug: Pepcid (famotidine) 20 mg Route: IVP; Site: right wrist; kd3 07:00 Follow up: Response: No adverse reaction kd3 02:08 Not Given (Patient Refused): Ketorolac 15 mg IVP once kd3 02:08 Drug: Meclizine 25 mg Route: PO; kd3 07:00 Follow up: Response: No adverse reaction kd3 02:09 Drug: Zofran (Ondansetron) 4 mg Route: IVP; Site: right wrist; kd3 07:00 Follow up: Response: No adverse reaction kd3 02:09 Drug: NS 0.9% 500 ml Route: IV; Rate: bolus; Site: right wrist; kd3 07:00 Follow up: Rate change 100 ml; IV Status: Completed infusion kd3 07:00 Follow up: Response: No adverse reaction kd3 04:46 CANCELLED (iv infiltration ): Valium (diazepam) 5 mg IVP once kd3 Disposition Summary: 11/29/21 06:40 Discharge Ordered Location: Home kdr Problem: new kdr Symptoms: have improved kdr Condition: Stable kdr Diagnosis - Chest pain, unspecified kdr - Abdominal pain, unspecified kdr - Upper abdominal pain, unspecified kdr - Epigastric pain kdr - Dizziness and giddiness kdr - Anxiety disorder, unspecified kdr Followup: kdr - With: Private Physician - When: 2 - 3 days - Reason: If symptoms return, Further diagnostic work-up, Recheck today's complaints, Continuance of care, Re-evaluation by your physician Discharge Instructions: - Discharge Summary Sheet kdr - Abdominal Pain, Adult, [id number] kdr - Nonspecific Chest Pain, Adult, [id number] kdr - Dizziness, [id number] kdr Forms: - Medication Reconciliation Form kdr - Thank You Letter kdr Prescriptions: - Meclizine 25 mg Oral Tablet - take 1 tablet by ORAL route every 8 hours As needed; 10 tablet; Refills: 0, kdr Product Selection Permitted Signatures: Dispatcher [employer] En Geller MD MD kdr Jenny Pelletier RN RN kd3 Effie Valentine PA PA sb3 Corrections: (The following items were deleted from the chart) 04:46 04:07 Valium (diazepam) 5 mg IVP once ordered. kdr kd3 04:47 04:47 Misc. Order ordered. kd3 kd3
[2021-11-29 07:12] VITALS: TEMP 98.2
[2021-11-29 07:16] VITALS: BP 121/60; O2SAT 99
--- NOTE | 2021-11-29 14:02 | RAD REPORT ---
EXAM DESCRIPTION: CT - Head Brain Wo Cont - 11/29/2021 7:17 am CLINICAL HISTORY: Dizzy COMPARISON: 01/17/2017 TECHNIQUE: Axial CT of the head obtained from the skull apex to the skull base without contrast. Thi s exam was performed according to our departmental dose-optimization program, which includes automate d exposure control, adjustment of the mA and/or kV according to patient size and/or use of iterative reconstruction technique. FINDINGS: No acute intracranial hemorrhage identified. No mass, mass effect, shift of the midline, a bnormal extra-axial fluid collection or CT evidence of acute ischemic change identified. The ventricu lar system is unremarkable. No acute abnormalities of the supratentorial white matter, basal gangli a, cerebellum, or brainstem. The visualized paranasal sinuses and the mastoid air cells are relatively well aerated. No skull fr acture identified. Visualized orbits and globes are unremarkable. IMPRESSION: 1. No acute intracranial abnormality identified. Electronically signed by: Mu Simms 11/29/2021 2:53 AM CDT Due to temporary technical issues with the PACS/Fluency reporting system, reports are being signed by the in house radiologists without review as a courtesy to insure prompt reporting. The interpreting radiologist is fully responsible for the content of the report
--- NOTE | 2021-11-29 14:02 | RAD REPORT ---
EXAM DESCRIPTION: RAD - Chest Single View - 11/29/2021 1:14 am CLINICAL HISTORY: CHEST PAIN COMPARISON: None. FINDINGS: Single frontal radiograph view of the chest. Cardiomediastinal silhouette: Normal size and contour. Lungs: No consolidation, pneumothorax, or pleural effusion. Bones: No acute osseous abnormality. Leads overlie the chest. Upper abdomen: No abnormality identified. IMPRESSION: 1. No acute pulmonary process identified. Electronically signed by: Mu Simms 11/29/2021 1:21 AM CDT Due to temporary technical issues with the PACS/Fluency reporting system, reports are being signed by the in house radiologists without review as a courtesy to insure prompt reporting. The interpreting radiologist is fully responsible for the content of the report
== END 2021-11-29 07:04 | disposition home or self-care (01) ==
LOC: ER 00:27
DX: R10.13 Epigastric pain (principal); R07.9 Chest pain, unspecified; R42 Dizziness and giddiness; F41.9 Anxiety disorder, unspecified; Z88.6 Allergy status to analgesic agent
CPT/HCPCS: 96361; 93005; 85025; 80048; 36415; 84484 ×2; 70450; 71045; 96375; 96374; 99284; J8597; J3360; J7040; J2405; J3490

== ENCOUNTER 2022-09-27 16:00 | Emergency (ER) | payer OTHER ==
--- OUTSIDE RECORDS SUMMARY | 2022-09-27 16:04 | XMS REPORT | Continuity of Care Document ---
:1985 Author Organization [facility] t Address [address] [place] [address] Care Team Providers Name Role Phone Mary Carmen Rodrigues Primary Care Physician MARY CARMEN CARY Attending Clinician Unavailable Mary Carmen Rodrigues Attending Clinician ALONDRA AVINA Attending Clinician Unavailable LIONEL KHOURY Attending Clinician Unavailable SAMSON WALKER Attending Clinician Unavailable Samson Walker MD Attending Clinician MARY KRISHNA Attending Clinician Unavailable Only, Adc Test Attending Clinician Unavailable Mary Krishna MD Attending Clinician Kunal LOW, Izabela Ali Attending Clinician Doctor Unassigned, [place] Attending Clinician Unavailable MOUSTAPHA MAGANA Attending Clinician Unavailable oMustapha Magana MD Attending Clinician CHRISTOPHE SÁNCHEZ Attending Clinician Unavailable Christophe Winkler Attending Clinician Edgar Dotson MD Attending Clinician Yesenia Feliz RN Attending Clinician Unavailable Room, [facility] Nst Attending Clinician Unavailable 1, Adc Lab Attending Clinician Unavailable Ultrasound, Adc Mfm Attending Clinician Unavailable Li Barajas MD Attending Clinician LI BARAJAS Attending Clinician Unavailable LI BARAJAS Attending Clinician Unavailable 2, Adc Lab Attending Clinician Unavailable Nurse, [facility] Attending Clinician Unavailable Columba Dill PA-C Attending Clinician Ultrasound, Ang-Mfm Attending Clinician Unavailable Edd Maay MD Attending Clinician EDD MAYA Attending Clinician Unavailable MOUSTAPHA MAGANA Admitting Clinician Unavailable MARY KRISHNA Admitting Clinician Unavailable Moustapha Magana MD Admitting Clinician Payers Payer Name Policy Type Policy Number Effective Date Expiration Date [facility] [id number] 2021 MEDICAID 00:00:00 [place] OF [place] [id number] 2022 00:00:00 Problems Condition Condition Condition Status Onset Resolution Last Treating Co mments Source Name Details Category Date Date Treatment Clinician Date 38 weeks 38 weeks Disease Active Unive rs gestation gestation 1-09 ity of of of 00:: [place] [address] [facility] Hyponatrem Hyponatrem Disease Active U dominic ia ia 1-09 ity of 00:00: [place] 00 [facility] Acute Acute Disease Active Univers cystitis cystitis -09 ity of without without 00:00: [place] hematuria hematuria 00 [facility] Liveborn Liveborn Disease Active Unive rs , of infant, of 1-09 it y of causey causey 00:[place] , , 00 [place] dical born in born in [facility] hospital by vaginal by vaginal delivery delivery Hemorrhoid Hemorrhoid Disease Active 2020-08 U dominic s, s, 2-29 ity of unspecifie [place]ifie [place] 00 Medical hemorrhoid hemorrhoid Br anch type type Leg Leg Disease Active 2020-08 Univers swelling swelling 2-29 ity of in in 00:00: [place] [facility] in third in third Branch trimester trimester Itching Itching Disease Active 2020-08 Univers 2-29 ity of 00:00: [place] 00 [facility] Low back Low back Disease Active 2020-08 Unive rs pain pain 2-29 ity of during during 00:: [place] [facility] in third in third Branch trimester trimester Cough Cough Disease Active 2020-08 Univers 2-29 ity of 00:00: [place] 00 Medical Branch History of History of Disease Active 2020-08 U nivers 1-23 it y of depression depression 00:00[place] , [place] Medical currently currently Bran ch Gastroesop Gastroesop Disease Active U nivers hageal hageal 9-20 ity of reflux reflux 00:00: [place] disease disease 00 Medical without without Branch esophagiti esophagiti s s SHANTE SHANTE Disease Active Univers (stress (stress 9-20 ity of urinary urinary 00:00: [place] incontinen incontinen 00 Me dical ce, ce, Branch female) female) Morbid Morbid Disease Active Univers obesity obesity 6-24 ity of with body with body 00:00[place] mass index mass index 00 Me dical of of Branch 40.0-49.9 40.0-49.9 High-risk High-risk Disease Active Uni vers 6-24 ity of in third in third 00:00: [place] trimester trimester [address] [facility] tonie Branch Low serum Low serum Disease Active Uni vers vitamin D vitamin D 6-24 ity of 00:00: [place] 00 Medical Branch History of History of Disease Active U nivers hypothyroi hypothyroi 6-24 it y of dism dism 00:00: [place] 00 Medical Branch Allergies, Adverse Reactions, Alerts Allergy Allergy Status Severity Reaction(s) Onset Inactive Treating Comm ents Source Name Type Date Date Clinician MORPHINE DRUG Active Hives Univers INGREDI 6-24 ity of 00:00: [place] 00 Medical Branch Morphine Propensi Active Hives Seizures Univ ers ty to 6-24 ity of adverse 00:00: [place] reaction 00 Medical s Branch Social History Social Habit Start Date Stop Date Quantity Comments Source Exposure to 2022-09-03 2022-09-13 Not sure University of SARS-CoV-2 00:00:00 16:49:00 [place] [facility] (event) Branch Alcohol intake 2022-09-13 2022-09-13 Lifetime University of 00:00:00 00:00:00 non-drinker [place] [facility] (finding) Branch Tobacco use and 2022-03-16 2022-03-16 Smokeless tobacco Un iversity of exposure 00:00:00 00:00:00 non-user [facility] [place] Sex Ass[birth year] At [birth year] Universit y of 00:00:00 00:00:00 [facility] [place] Smoking Status Start Date Stop Date Source Never smoked tobacco [facility] Medications Ordered Filled Start Stop Current Ordering Indication Dosage Frequency Signature Comments Components Source Medication Medication Date Date Medication? Clinician (SIG) Name Name clonazePAM 2022- No .5mg Take 0.5 Un carlos a 0.5 mg 2-07 02-07 mg by ity of tablet 16:56: 00:00 mouth as [place] 00 :00 needed. [facility] Branch clonazePAM 2022- No .5mg Take 0.5 Un carlos a 0.5 mg 2-07 02-07 mg by ity of tablet 16:56: 00:00 mouth as [place] 00 :00 needed. [facility] escitalopra Yes [id number] 20mg Take 1 Univers m oxalate 2-07 tablet by ity o f (LEXAPRO) 00:00[place] 20 mg 00 the Medical tablet morning. Branch escitalopra Yes [id number] 20mg Take 1 Univers m oxalate 2-07 tablet by ity o f (LEXAPRO) 00:00[place] 20 mg 00 the Medical tablet morning. Branch busPIRone 2022- Yes [id number] 10mg Take 1 U nivers 10 mg 2-07 03-25 tablet by ity of tablet 00:00: 04:59 mouth 2 [place] 00 :00 (two) Medical times [place] daily as needed for Pain (scale 7-10) for up to 45 days. busPIRone 2022- Yes [id number] 10mg Take 1 U nivers 10 mg 2-07 03-25 tablet by ity of tablet 00:00: 04:59 mouth 2 [place] 00 :00 (two) Medical [facility] daily as needed for Pain (scale 7-10) for up to 45 days. SERTraline 2021- No 25mg Take 25 mg Univers 25 mg -16 -16 by mouth ity of tablet 14:09: 00:00 daily. [place] 40 :00 [facility] Branch 2021- No Take by Unive rs vit 04-22 mouth. ity of calc,iron,f 14:09: 00:00 [place] olic 31 :00 Medical ( Branch VITAMIN ORAL) ferrous 2021- [facility] 04-22 mouth. ity of (IRON ORAL) 14:09: 00:00 [place] 09 :00 Medical Branch clonazePAM Yes .5mg Take 0.5 Uni vers 0.5 mg 5-04 mg by ity of tablet 22:29: mouth as [place] 55 needed. Medical Branch acetaminoph 2021- No [id number] 1{capsu Take 1 Univers en-caff-but 08-18 le} capsule by i ty of albital 00:00: 00:00 mouth [place] (ESGIC) per 00 :00 every 4 Medic al capsule (four) Branch hours as needed (headache) . cyclobenzap 2021- No [id number] 10mg Take 1 Univers rine 10 mg 08-18 tablet by ity of tablet 00:00: 00:00 mouth 3 [place] 00 :00 (three) Medical times Branch daily. 2021- No [id number] 1{tbl} Take 1 Univers vitamin 08-16 102 tablet by ity of w/FA tablet 00:00: 00:00 [place] 00 :00 daily. Medical Branch docusate 2021- No [id number] 240mg Take 1 Univers calcium 240 08-16 102 capsule by i ty of mg capsule 00:00: 00:00 mouth once [place] 00 :00 daily as Medical needed for Branch Constipati on. ferrous 2021- No [id number] 325mg Take 1 Univers sulfate 325 08-16 102 tablet by it y of mg (65 mg 00:00: 00:00 [place] 2 [place] iron) 00 :00 (two) Medical tablet times Branch daily. ibuprofen 2021- No [id number] 600mg Take 1 Univers 600 mg 08-16 102 tablet by ity of tablet 00:00: 00:00 mouth [place] 00 :00 every 6 Medical (six) Branch hours as needed (Pain). Take with food or milk. omeprazole 2020-08- No [id number] 40mg Take 1 Univers 40 mg 014 04-22 capsule by ity of capsule 00:00: 00:00 mouth [place] 00 :00 daily. Medical Branch famotidine 2021- No [id number] 20mg Take 1 Univers 20 mg 04-26 tablet by ity of tablet 00:00: 00:00 mouth 2 [place] 00 :00 (two) Medical times [place] daily. Immunizations Ordered Filled Immunization Date Status Comments [facility] e Immunization Name Name Rho (d) Immune 2021-08-16 Completed University of Globulin 00:00:00 [facility] [place] Rho (d) Immune 2021-08-16 Completed University of Globulin 00:00:00 [facility] [place] Rho (d) Immune 2021-08-16 Completed University of Globulin 00:00:00 [facility] [place] TDAP 2021-06-29 Completed University of 00:00:00 [facility] [place] TDAP 2021-06-29 Completed University of 00:00:00 [facility] [place] TDAP 2021-06-29 Completed University of 00:00:00 [facility] [place] Rho (d) Immune 2021-06-08 Completed University of Globulin 00:00:00 [facility] [place] Rho (d) Immune 2021-06-08 Completed University of Globulin 00:00:00 [facility] [place] Rho (d) Immune 2021-06-08 Completed University of Globulin 00:00:00 [facility] [place] Vital Signs Vital Name Observation Time Observation Value Comments Source Systolic blood 2022-04-22 18:24:00 130 mm[Hg] Univer sity of pressure [facility] [place] Diastolic blood 2022-04-22 18:24:00 79 mm[Hg] Unive rsity of pressure [facility] [place] Heart rate 2022-04-22 18:24:00 80 /min [facility] Body temperature 2022-04-22 18:24:00 36.94 [facility] 2022-04-22 18:24:00 18 /min [facility] Body height 2022-04-22 18:24:00 160 cm [facility] Body weight 2022-04-22 18:24:00 109.045 kg [facility] BMI 2022-04-22 18:24:00 42.58 kg/m2 Universi ty of [facility] [place] Procedures This patient has no known procedures. Encounters Start End Encounter Admission Attending Care Care Encounter Source Date/Time Date/Time Type Type Clinicians Facility Department ID 2021-08-[address] [facility] [id number] Univers 16:31:24 ity [facility] 2022-10-11 2022-10-11 Outpatient R [facility] [id number] Univers 16:00:00 16:00:00 MARY CARMENGUI bernal [facility] 2022-09-13 2022-09-13 Outpatient R [facility] [id number] Univers 16:30:00 17:19:53 MARY CARMEN bernal [facility] 2022-09-13 2022-09-13 [facility] [id number] Univers 16:30:00 17:19:53 Visit Mary Carmen [facility] [id number] it y of [facility] [id number] [place] as JESSICA?BLEA [phone] Ny yung [address] OFFICE BUILDING 2022-08-30 2022-08-30 Outpatient R [facility] [id number] Univers 15:00:00 15:00:00 MARY CARMEN bernal [facility] 2022-05-13 2022-05-13 Outpatient R PENG [facility] [id number] Univers 13:30:00 13:30:00 LIONEL itana [facility] 2022-04-22 2022-04-22 Outpatient R SAMSON WALKER [facility] [id number] Univers 13:00:00 14:07:49 ity [facility] 2022-04-22 2022-04-22 Office Samson Walker [facility] 1.2.840.114 [id number] Univers 13:00:00 14:07:49 Visit SAV [id number] i ty of [place] 4.2.7.2.686 [place] [id number] Ny [place] [address] Branch BUILDING 2022-04-22 2022-04-22 Outpatient R SAMSON WALKER [facility] [id number] Univers 13:00:00 14:07:49 ity of [facility] [place] 2022-03-16 2022-03-16 Outpatient R TOMI, [facility] [id number] Univers 15:00:00 23:59:00 MARY santana [facility] 2022-03-16 2022-03-16 Outpatient R TOMI, [facility] [id number] Univers 15:00:00 15:00:00 MARY santana [facility] 2022-03-15 2022-03-15 Laboratory Only, Adc Test [facility] 1.2.840. [id number] Univers 11:15:00 11:30:00 Only Mary Krishna [id number] ity [facility] 4.2.7.2.686 [place] [phone] [facility] [address] [place] 2022-03-15 2022-03-15 Outpatient R TOMI, [facility] [id number] Univers 11:15:00 11:15:00 BARRINGTONANIVAL dolores esther [facility] 2022-02-22 2022-02-22 Telephone [facility] Syed [id number] Univers 00:00:00 00:00:00 Izabela KNAPP 350.1.13.10 i ty [facility] 4.2.7.2.686 [place] as [id number] [address] 2022-02-22 2022-02-22 Telephone [facility] Seyd [id number] Univers 00:00:00 00:00:00 Izabela KNAPP 350.1.13.10 i ty [facility] 4.2.7.2.686 [place] as [id number] [facility] [address] [place] 2022-02-22 2022-02-22 Telephone [facility] [id number] Univers 00:00:00 00:00:00 Mary ANG 350.1.13.10 ity [facility] 4.2.7.2.686 [place] [facility] [id number] [facility] 059 [facility] 2022-02-22 2022-02-22 Telephone [facility] [id number] Univers 00:00:00 00:00:00 Qiasojun [place] 350.1.13.10 ity of [place] 4.2.7.2.686 [place] [id number] Ny dical NAL [address] [place] [address] 2022-02-14 2022-02-14 Outpatient R TOMI, [facility] [id number] Univers 16:00:00 23:59:00 QIANGJUN ity o f [facility] [place] 2022-02-14 2022-02-14 Outpatient R TOMI, [facility] [id number] Univers 16:00:00 23:59:00 QIANGJUN ity o f [facility] [place] 2022-02-10 2022-02-10 [facility]phone [facility] [id number] Univers 00:00:00 00:00:00 Barringtonjun [place] 350.1.13.10 ity of [place] 4.2.7.2.686 [place] [phone] Ny dical NAL [address] [place] [address] 2021-12-08 2021-12-08 Telephone [facility] [id number] Univers 00:00:00 00:00:00 Mary ANDRETON 350.1.13.10 ity of [place] 4.2.7.2.686 [place] [id number] Ny dical NAL [address] [place] [address] 2021-12-02 2021-12-02 Outpatient R TOMI, [facility] [id number] Univers 10:46:04 11:13:00 QIANGJUN ity o f [facility] [place] 2021-12-02 2021-12-02 Outpatient R TOMI, [facility] [id number] Univers 11:00:00 11:00:00 QIANGJUN ity o f [facility] [place] 2021-12-01 2021-12-01 Office [facility] 1.2.840.114 [id number] Univers 08:00:00 08:35:02 Visit Mary ANDRETON 350.1.13.10 ity of [place] 4.2.7.2.686 [place] [id number] [place] [id number] [facility] 2021-12-01 2021-12-01 Outpatient R TOMI, [facility] [id number] Univers 08:00:00 08:35:02 MARY bernal o [facility] 2021-12-01 2021-12-01 Office [facility] 1.2.840.114 [id number] Univers 08:00:00 08:35:02 Visit Mary ANG 350.1.13.10 ity of [facility] 4.2.7.2.686 [place] ESS[place] [id number] [address] 2021-12-01 2021-12-01 Outpatient R TOMI, [facility] [id number] Univers 08:00:00 08:35:02 MARY bernal o [facility] 2021-12-01 2021-12-01 Outpatient R TOMI, [facility] [id number] Univers 08:00:00 08:35:02 TONIAANIVAL bernal [facility] 2021-11-22 2021-11-22 Orders Doctor SIMON 1.2.840.114 [id number] Univers 00:00:00 00:00:00 Only Unassigned, [place] 350.1.13.10 ity of [facility] 4.2.7.2.686 [place] as [id number] [address] 2021-09-16 2021-09-16 [facility] [id number] Univers 13:30:00 13:30:00 MARY CARMEN bernal [facility] 2021-08-24 2021-08-24 Office [facility] 1.2.840.114 [id number] Univers 09:00:00 10:19:36 [address] [facility] 350.1.13.10 it y of [place] 4.2.7.2.686 [place] as JESSICA?BLEA [id number] [facility] 044 [facility] OFFICE [facility] 2021-08-24 2021-08-24 [facility] [id number] Univers 09:00:00 10:19:36 MARY CARMEN ity [facility] 2021-08-24 2021-08-24 Outpatient R VIV[facility] [id number] Univers 09:00:00 09:00:00 MARY CARMEN ity of [facility] [place] 2021-08-18 2021-08-18 Outpatient R MOUSTAPHA MAGANA [facility] [id number] Univers 13:15:00 14:56:02 ity [facility] 2021-08-18 2021-08-18 Routine Moustapha Magana [facility] 1.2.031.684 [id number] Univers 13:15:00 14:56:02 Cam [place] 350.1.13.10 ity of Visit [place] 4.2.7.2.686 [facility] PROFESSIO [id number] Ny dical [address] 2021-08-16 2021-08-16 Emergency [facility] [id number] Univers 22:40:00 22:41:00 CHRISTOPHE ity [facility] 2021-08-16 2021-08-16 Emergency [facility] 1.2.840.114 [id number] Univers 22:40:00 22:41:00 Christophe B [place] 350.1.13.10 i ty of [place] 4.2.7.2.686 [facility] [id number] [address] 2021-08-16 2021-08-16 Outpatient X MOUSTAPHA MAGANA [facility] [place] [id number] Univers 21:21:00 22:11:00 ity of [facility] [place] 2021-08-16 2021-08-16 Outpatient X MOUSTAPHA MAGANA [facility] [place] [id number] Univers 21:21:00 22:11:00 ity [facility] 2021-08-16 2021-08-16 Emergency Izzy [facility] 1.2.840.114 [id number] Univers 21:21:00 22:11:00 Cam [place] 350.1.13.10 i ty of [place] 4.2.7.2.686 [facility] [id number] [address] 2021-08-14 2021-08-16 Hospital Moustapha Magana [facility] 1.2.840.114 [id number] Univers 19:15:00 15:05:00 Encounter Cam [place] 350.1.13.10 ity of [place] 4.2.7.2.686 [place] [id number] [facility] 083 Branch 2021-08-16 2021-08-[address] [facility] [id number] Univers 09:00:00 09:00:00 ity of [facility] [place] 2021-08-15 2021-08-[address] [facility] 1.2.840.114 [id number] Univers 07:25:00 13:02:00 Event Edgar ANG 350.1.13.10 i ty of [place] 4.2.7.2.686 [place] [id number] [facility] [address] [place] 2021-08-14 2021-08-14 Nurse Yesenia Feliz 1.2.840.114 [id number] Univers 00:00:00 00:00:00 Triage RA 350.1.13.10 it y of HOSPITAL 4.2.7.2.686 [place] [id number] [facility] 019 Branch 2021-08-12 2021-08-12 Outpatient R MOUSTAPHA MAGANA [facility] [id number] Univers 09:00:00 10:07:36 ity of [facility] [place] 2021-08-12 2021-08-12 Routine Room, Mark Nst [facility] 1.2.840.1 [id number] Univers 09:00:00 10:07:36 Moustapha Magana 350.1.13.10 ity of Visit [place] 4.2.7.2.686 [facility] PROFESSIO [id number] Ny dical [facility] 134 Branch [facility] 2021-08-11 2021-08-11 Outpatient R MOUSTAPHA MAGANA [facility] [id number] Univers 13:15:00 13:15:00 ity of [facility] [place] 2021-08-09 2021-08-09 Electrical Software Engineer 1, Mark Lab [facility] 1.2.840.114 [id number] Univers 12:00:00 12:15:00 Visit Moustapha Magana 350.1.13.10 ity of [place] 4.2.7.2.686 [place] [id number] [facility] 353 [address] 2021-08-09 2021-08-09 Outpatient R MOUSTAPHA MAGANA [facility] [id number] Univers 10:00:00 11:33:08 ity of [facility] [place] 2021-08-09 2021-08-09 Routine Room, [facility] 1.2.840.1 [id number] Univers 10:00:00 11:33:08 Moustapha Magana 350.1.13.10 ity of Visit [place] 4.2.7.2.686 [place] [facility] [id number] Ny dical NAL 134 [facility] 2021-08-05 2021-08-[address] [facility] [id number] Univers 08:45:00 08:45:00 ity of [facility] [place] 2021-08-04 2021-08-04 Outpatient P MOUSTAPHA MAGANA [facility] [place] [id number] Univers 12:39:00 16:10:00 ity of [facility] [place] 2021-08-04 2021-08-04 [facility] Moustapha Magana [facility] 1.2.840.114 [id number] Univers 12:39:00 16:10:00 Encounter Prem ANG 350.1.13.10 ity of [place] 4.2.7.2.686 [place] [id number] [facility] [address] [place] 2021-08-04 2021-08-04 Outpatient R MOUSTAPHA MAGANA [facility] [id number] Univers 09:45:00 12:15:41 ity of [facility] [place] 2021-08-04 2021-08-04 Routine Moustapha Magana [facility] [id number] Univers 09:45:00 12:15:41 Prem [place] 350.1.13.10 ity of Visit [place] 4.2.7.2.686 [place] [phone] Ny dical NAL 134 [facility] 2021-08-03 2021-08-03 Electrical Software Engineer Ultrasound, [facility] 1.2 .840.114 [id number] Univers 08:00:00 08:30:00 Visit Li Barajas 350.1.13.10 ity of [place] 4.2.7.2.686 [place] [id number] Ny dical NAL 134 [facility] 2021-08-03 2021-08-03 Outpatient P LI BARAJAS [facility] [id number] Univers 08:00:00 08:00:00 LI BARAJAS ity of [facility] [place] 2021-07-28 2021-07-28 Electrical Software Engineer 2, Adc Lab [facility] 1.2.840.114 [id number] Univers 13:15:00 13:17:03 Visit Moustapha Magana 350.1.13.10 ity of [place] 4.2.7.2.686 [place] [id number] Ny dical NAL 353 [facility] 2021-07-28 2021-07-28 Outpatient R MOUSTAPHA MAGANA [facility] [id number] Univers 13:15:00 13:15:00 ity of [facility] [place] 2021-07-28 2021-07-28 [facility] [id number] Univers 10:45:00 12:27:55 Cam [place] 350.1.13.10 ity of Visit [place] 4.2.7.2.686 [place] [id number] Ny dical NAL [address] [place] [address] 2021-07-13 2021-07-13 Routine Moustapha Magana [facility] 1.2.631.248 [id number] Univers 13:33:36 14:15:32 Cam [place] 350.1.13.10 ity of Visit [place] 4.2.7.2.686 [place] [id number] Ny dical NAL 134 [facility] 2021-07-13 2021-07-13 Outpatient R MAGANA MOUSTAPHA [facility] [id number] Univers 13:15:00 14:15:32 ity of [facility] [place] 2021-06-30 2021-06-30 Outpatient R MOUSTAPHA MAGANA [facility] [id number] Univers 16:00:00 16:00:00 ity of [facility] [place] 2021-06-29 2021-06-29 Routine Magana [facility] [id number] Univers 11:24:21 12:02:34 Cam [place] 350.1.13.10 ity of Visit [place] 4.2.7.2.686 [place] [id number] Ny dical NAL [address] [place] [address] 2021-06-29 2021-06-29 Outpatient P JENN LI [facility] [id number] Univers 11:00:00 11:25:51 LI BARAJAS ana [facility] 2021-06-29 2021-06-29 Outpatient P LI BARAJAS [facility] [id number] Univers 11:00:00 11:25:51 JENN LI [facility] 2021-06-29 2021-06-29 Electrical Software Engineer Ultrasound, [facility] 1.2 .840.114 [id number] Univers 10:56:01 11:25:51 Visit Li Barajas Joey SAV 350.1.13.10 ity of [place] [phone] Ny dical NAL [address] [place] [address] 2021-06-23 2021-06-[address] [facility] [id number] Univers 09:00:00 09:00:00 ity of [facility] 2021-06-23 2021-06-[address] [facility] [id number] Univers 09:00:00 09:00:00 ity [facility] 2021-06-17 2021-06-17 Brigitte Magana [facility] [id number] Univers 13:05:55 14:07:46 Cam [place] 350.1.13.10 ity of [place] [phone] Ny dical NAL [address] [place] [address] 2021-06-17 2021-06-17 Outpatient R MOUSTAPHA MAGANA [facility] [id number] Univers 13:00:00 14:07:46 ity [facility] 2021-06-08 2021-06-08 Outpatient R MOUSTAPHA MAGANA [facility] [id number] Univers 14:30:00 14:30:00 ity [facility] 2021-06-08 2021-06-08 Nurse Nurse, [facility] 1.2.840.114 [id number] Univers 13:06:02 13:34:35 Visit Moustapha MaganaMARIANA 350.1.13.10 ity of [place] [phone] Ny dical NAL 134 [facility] 2021-06-08 2021-06-08 Electrical Software Engineer 2, [facility] [place] 1.2.840.114 [id number] Univers 08:20:42 08:35:42 Visit Moustapha Magana SAV 350.1.13.10 it[place] of [place] [phone] Ny dical NAL 353 [facility] 2021-06-03 2021-06-03 Electrical Software Engineer 2, [facility] 1.2.840.114 [id number] Univers 10:33:03 11:48:31 Visit Moustapha Magana Prem ANG 350.1.13.10 ity of [place] [phone] Ny dical NAL [address] [place] [address] 2021-06-03 2021-06-03 Outpatient R MOUSTAPHA MAGANA [facility] [id number] Univers 10:00:00 10:00:00 ity of [facility] 2021-06-03 2021-06-[address] [facility] [id number] Univers 00:00:00 00:00:00 Management Columba ANG 350.1.13.10 ity of [place] [phone] Ny dical NAL 134 [facility] 2021-05-20 2021-05-20 Routine Izzy [facility] 1.2.202.166 [id number] Univers 15:38:31 16:28:19 Prem Ang 350.1.13.10 ity of [place] [phone] Ny dical nal 134 [facility] 2021-05-20 2021-05-20 Outpatient R MOUSTAPHA MAGANA [facility] [id number] Univers 15:30:00 15:30:00 ity of [facility] 2021-04-26 2021-04-26 Routine Moustapha Magana 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 [facility] 1.2 .840.114 [id number] Univers 10:31:00 11:46:00 Visit Edd Maya BALANCE TRUER 350.1.13.10 ity of [facility] 4.2.7.2.686 [place] as MATERNAL [phone] Med ical & CHILD [address] [place] [address] 2021-04-22 2021-04-[address] [facility] [id number] Univers 10:00:00 10:00:00 ity [facility] 2021-04-22 2021-04-22 Out[address] P DAWOOD [facility] [id number] Univers 10:00:00 10:00:00 EDD ity [facility] 2021-04-22 2021-04-22 [facility] 1.2.222.644 [id number] Univers 00:00:00 00:00:00 Management Cam [place] 350.1.13.10 ity of [place] [phone] Ny dic[address] 2021-04-05 2021-04-05 Telephone Moustapha Magana [facility] 1.2.840.114 [id number] Univers 00:00:00 00:00:00 Cam [place] 350.1.13.10 i ty of [place] [phone] Me dic[address] 2021-04-05 2021-04-05 Telephone Moustapha Magana [facility] 1.2.840.114 [id number] Univers 00:00:00 00:00:00 Prem Ang 350.1.13.10 i ty of [place] [phone] [address] 2021-03-25 2021-03-25 Outpatient R TOMI [facility] [id number] Univers 15:00:00 15:55:18 QIAJUSTIN ity o f [facility] 2021-03-25 2021-03-25 [facility] 1.2.840.114 [id number] Univers 14:45:22 15:05:22 Visit Mary Ang 350.1.13.10 ity of [place] [phone] [facility] 059 [facility] 2021-03-25 2021-03-25 Routine Moustapha Magana [facility] 1.2.572.166 [id number] Univers 14:05:15 14:20:15 Prem Ang 350.1.13.10 ity of [place] [phone] [address] 2021-03-25 2021-03-25 Orders Doctor [facility] 1.2.840.114 [id number] Univers 00:00:00 00:00:00 Only Unassigned, RA 350.1.13.10 ity of [place] [facility] 4.2.7.2.686 [place] as [phone] [address] 2021-03-25 2021-03-25 Orders Doctor [facility] 1.2.840.114 [id number] Univers 00:00:00 00:00:00 Only Unassigned, RA 350.1.13.10 ity of [place] [facility] 4.2.7.2.686 [place] as [phone] [address] 2021-03-16 2021-03-16 Routine Moustapha Magana [facility] [id number] Univers 15:55:35 16:49:42 Cam [place] 350.1.13.10 ity of [place] [phone] Ny dic[address] 2021-03-16 2021-03-16 Outpatient R IZZY MOUSTAPHA [facility] [id number] Univers 16:00:00 16:00:00 ity of [facility] 2021-03-16 2021-03-16 Patient [facility] 1.2.616.552 [id number] Univers 00:00:00 00:00:00 Secure Msg Cam [place] 350.1.13.10 ity of [place] [phone] [address] 2021-02-25 2021-02-25 Routine Izzy [facility] 1.2.627.543 [id number] Univers 13:23:30 14:32:38 Cam [place] 350.1.13.10 ity of [place] [phone] [address] 2021-02-25 2021-02-25 Outpatient R IZZY MOUSTAPHA [facility] [id number] Univers 13:15:00 13:15:00 ity of [facility] 2021-02-01 2021-02-01 Telephone Izzy [facility] 1.2.840.114 [id number] Univers 00:00:00 00:00:00 Cam [place] 350.1.13.10 i ty of [place] [phone] Ny dic[address] 2021-01-29 2021-01-29 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 1.2.840.114 [id number] Univers 11:46:20 12:01:20 Visit Moustapha Magana [place] 350.1.13.10 ity of [place] [phone] [address] 2021-01-29 2021-01-29 Outpatient R MOUSTAPHA MAGANA [facility] [id number] Univers 11:00:00 11:00:00 ity of [facility] 2021-01-28 2021-01-28 Initial Moustapha Magana [facility] 1.2.837.075 [id number] Univers 14:02:08 15:38:20 Cam [place] 350.1.13.10 ity of [place] [phone] Ny dical [address] 2021-01-28 2021-01-28 Outpatient R MOUSTAPHA MAGANA [facility] [id number] Univers 14:00:00 14:00:00 ity of [facility] 2021-01-28 2021-01-28 Orders Doctor [facility] 1.2.840.114 [id number] Univers 00:00:00 00:00:00 Only Unassigned, RA 350.1.13.10 ity of [place] [facility] 4.2.7.2.686 [place] [phone] [place] [address] [place] Results This patient has no known results.
--- NOTE | 2022-09-27 18:11 | RAD REPORT ---
EXAM DESCRIPTION: RAD - Foot Left 3 View - 09/27/2022 5:31 pm CLINICAL HISTORY: Fall, for pain COMPARISON: None. TECHNIQUE: Three views of the left foot. FINDINGS: Transversely oriented lucency at the base of the fifth metatarsal. Mild overlying soft tis jessy swelling. Joint alignment is maintained. Small calcaneal spur. No air or foreign body in the soft tissues. IMPRESSION: Mildly displaced fracture at the base of the fifth metatarsal.
--- NOTE | 2022-09-27 19:14 | ER ---
Nurse's Notes [facility] Name: Marivel Loya Age: 37 yrs Sex: Female : 1985 Arrival Date: 09/27/2022 Time: 16:04 Bed 9 Private MD: Diagnosis: Fracture of fifth metatarsal bone Presentation: 09/27 16:20 Chief complaint: Patient states: Stepped out of truck - twisted left ankle "heard a ld1 loud pop." Pt c/o pain to left ankle. Coronavirus screen: At this time, the client does not indicate any symptoms associated with coronavirus-19. Ebola Screen: No symptoms or risks identified at this time. Initial Sepsis Screen: Does the patient meet any 2 criteria? No. Patient's initial sepsis screen is negative. Does the patient have a suspected source of infection? No. Patient's initial sepsis screen is negative. Risk Assessment: Do you want to hurt yourself or someone else? Patient reports no desire to harm self or others. Onset of symptoms was September 27, 2022. 16:20 Method Of Arrival: Ambulatory ld1 16:20 Acuity: JOHN 3 ld1 Triage Assessment: 16:18 General: Appears in no apparent distress. comfortable, Behavior is calm, cooperative, ld1 appropriate for age. Pain: Complains of pain in left foot Pain does not radiate. Pain currently is 5 out of 10 on a pain scale. Quality of pain is described as throbbing. EENT: No signs and/or symptoms were reported regarding the EENT system. Neuro: Level of Consciousness is awake, alert, obeys commands, Oriented to person, place, time, situation. Cardiovascular: Capillary refill < 3 seconds Patient's skin is warm and dry. Respiratory: Airway is patent Respiratory effort is even, unlabored. GI: Abdomen is round non-distended. : No signs and/or symptoms were reported regarding the genitourinary system. Derm: No signs and/or symptoms reported regarding the dermatologic system. Musculoskeletal: No signs and/or symptoms reported regarding the musculoskeletal system. 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 - Social history:: Smoking status: Patient denies any tobacco usage or history of. Patient/guardian denies using alcohol. Screenin:28 [facility] ED Fall Risk Assessment (Adult) History of falling in the last 3 months, kr3 including since admission Yes- single mechanical fall (1 pt) Confusion or Disorientation No (0 pts) Intoxicated or Sedated No (0 pts) Impaired Gait No (0 pts) Mobility Assist Device Used No (0 pt) Altered Elimination No (0 pt) Score/Fall Risk Level 0 - 2 = Low Risk Oriented to surroundings, Maintained a safe environment, Educated pt \\T\\ family on fall prevention, incl call for assistance when getting out of bed, Assessed \\T\\ reinforced patient's understanding of fall precautions, Hourly rounding (assess needs \\T\\ fall precautionary measures) done. Abuse screen: Denies threats or abuse. Nutritional screening: No deficits noted. Tuberculosis screening: No symptoms or risk factors identified. Vital Signs: 16:18 BP 104 / 86; Pulse 89; Resp 18; Temp 97.9(O); Pulse Ox 100% on R/A; Weight 99.79 kg; ld1 Height 5 ft. 4 in. (162.56 cm); Pain 5/10; 16:18 Body Mass Index 37.76 (99.79 kg, 162.56 cm) ld1 ED Course: 16:04 Patient arrived in ED. aa5 16:16 Preet Jose PA is PHCP. [facility] 16:16 Saroj Lemos MD is Attending Physician. jmm 16:18 Arm band placed on right wrist. ld1 16:20 Triage completed. ld1 19:02 Patient has correct armband on for positive identification. Placed in gown. mm9 19:03 Crutch training done. Orthoglass splint: Posterior short lleg splint applied on left mm9 leg. 19:13 Dl Dempsey MD is Referral Physician. [facility] 20:28 No provider procedures requiring assistance completed. Patient did not have IV access kr3 during this emergency room visit. Administered Medications: 20:09 Not Given (Patient Refused): Ketorolac 30 mg IM once kr3 Medication: 20:29 VIS not applicable for this client. kr3 Outcome: 19:13 Discharge ordered by MD. grajeda 20:09 Patient left the ED. kr3 20:29 Discharged to home ambulatory. kr3 20:29 Condition: stable 20:29 Discharge instructions given to patient, Instructed on discharge instructions, follow up and referral plans. medication usage, Demonstrated understanding of instructions, follow-up care, medications, Prescriptions given X 1. Signatures: Preet Jose PA PA jmm Calderon, Audri, RN RN aa5 Yamila Handy RN RN ld1 Aylin Lugo RN RN kr3 Edith Byeer mm9 Corrections: (The following items were deleted from the chart) 16:19 16:18 PMHx: None; ld1 ld1
--- NOTE | 2022-09-27 19:14 | EDPHYS ---
Physician Documentation [facility] Name: Marivel Loya Age: 37 yrs Sex: Female : 1985 Arrival Date: 09/27/2022 Time: 16:04 Bed 9 Private MD: ED Physician Saroj Lemos HPI: 09/27 16:26 This 37 yrs old Female presents to ER via Ambulatory with complaints of Fall Injury. jmm 16:26 Details of fall: The patient fell from a height. Onset: The symptoms/episode jmm began/occurred acutely, just prior to arrival. Is a 37-year-old female with history of anxiety the presents emerged part with complaints of left foot pain following a fall from a truck. Denies hitting her head. Patient was holding her child during the fall. Denies LOC or head injury.. 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 - Social history:: Smoking status: Patient denies any tobacco usage or history of. Patient/guardian denies using alcohol. ROS: 16:26 Constitutional: Negative for fever, chills, and weight loss, Cardiovascular: Negative jmm for chest pain, palpitations, and edema, Respiratory: Negative for shortness of breath, cough, wheezing, and pleuritic chest pain. 16:26 MS/extremity: Positive for injury or acute deformity, pain. 16:26 All other systems are negative. Exam: 16:26 Constitutional: This is a well developed, well nourished patient who is awake, alert, jmm and in no acute distress. Head/Face: atraumatic. Eyes: EOMI, no conjunctival erythema appreciated ENT: Moist Mucus Membranes Neck: Trachea midline, Supple Chest/axilla: Normal chest wall appearance and motion. Cardiovascular: Regular rate and rhythm. No edema appreciated Respiratory: Normal respirations, no respiratory distress appreciated Abdomen/GI: Non distended Back: Normal ROM Skin: General appearance color normal 16:26 Musculoskeletal/extremity: Pain elicited on palpation of the left base of the fifth metatarsal, compartments are soft, full dorsalis pedis pulse, neurovascular. 16:26 Skin: Appearance: Color: normal in color. 16:26 Neuro: Orientation: is normal, Mentation: is normal, Memory: is normal. 16:26 Psych: Behavior/mood is pleasant, cooperative. Vital Signs: 16:18 BP 104 / 86; Pulse 89; Resp 18; Temp 97.9(O); Pulse Ox 100% on R/A; Weight 99.79 kg; ld1 Height 5 ft. 4 in. (162.56 cm); Pain 5/10; 16:18 Body Mass Index 37.76 (99.79 kg, 162.56 cm) ld1 Procedures: 19:12 Splinting: Splint applied to left foot using Orthoglass splint, applied by tech. taras Examined by me, post splint application: neurovascular intact, 2+ distal pulses palpable, brisk capillary refill noted. MDM: 16:26 Patient medically screened. [facility] 19:03 Data reviewed: vital signs, nurses notes. I considered the following discharge [facility] prescriptions or medication management in the emergency department Medications were administered in the Emergency Department. See MAR. Independent interpretation of the following test(s) in the Emergency Department X-Ray: My interpretation is Fifth metatarsal fracture. Counseling: I had a detailed discussion with the patient and/or guardian regarding: the historical points, exam findings, and any diagnostic results supporting the discharge/admit diagnosis, radiology results, the need for outpatient follow up, to return to the emergency department if symptoms worsen or persist or if there are any questions or concerns that arise at home. 09/27 16:27 Order name: Foot Left 3 View XRAY [facility] 09/27 18:12 Order name: RAD; Complete Time: 18:12 EDMS 09/27 18:12 Order name: Posterior Leg Splint; Complete Time: 18:34 [facility] 09/27 18:12 Order name: Crutches; Complete Time: 18:34 [facility] Administered Medications: 20:09 Not Given (Patient Refused): Ketorolac 30 mg IM once kr3 Disposition Summary: 09/27/22 19:13 Discharge Ordered Location: Home [facility] Condition: Stable [facility] Diagnosis - Fracture of fifth metatarsal bone [facility] Followup: [facility] - With: lD Dempsey MD - When: 2 - 3 days - Reason: Recheck today's complaints, Continuance of care, Re-evaluation by your physician Discharge Instructions: - Discharge Summary Sheet jm - Metatarsal Fracture [facility] Forms: - Medication Reconciliation Form jmranjana - Thank You Letter taras - Antibiotic Education taras - Prescription Opioid Use taras Prescriptions: - Diclofenac Sodium 75 mg Oral Tablet Sustained Release - take 1 tablet by ORAL route 2 times per day; 30 tablet; Refills: 0, Product jmranjana Selection Permitted Signatures: Dispatcher [employer] EDMS Preet Jose PA PA jmm Dibbern, Lauren RN RN ld1 Aylin Lugo RN kr3 Corrections: (The following items were deleted from the chart) 16:19 16:18 PMHx: None; ld1 ld1
[2022-09-27] MEDS ORDERED: KETOROLAC 30 MG/ML INJ ONE (20:03)
[2022-09-27 20:34] VITALS: BP 104/86; TEMP 97.9; O2SAT 100
== END 2022-09-27 20:09 | disposition home or self-care (01) ==
LOC: ER 16:00
PROC: 2W3TX1Z Immobilization of Left Foot using Splint (ICD-10-PCS; principal; 2022-09-27)
DX: S92.352A Displaced fracture of fifth metatarsal bone, left foot, initial encounter for closed fracture (principal); F41.9 Anxiety disorder, unspecified; Z88.5 Allergy status to narcotic agent

== ENCOUNTER 2022-10-06 23:23 | Emergency (ER) | payer OTHER ==
--- OUTSIDE RECORDS SUMMARY | 2022-10-06 23:27 | XMS REPORT | Continuity of Care Document ---
:1985 Author Organization [facility] t Address [address] [place] [address] [place] [id number] Care Team Providers Name Role Phone Mary [...] LOW, Izabela Ali Attending Clinician Doctor Unassigned, [place] Attending Clinician Unavailable MOUSTAPHA MAGANA Attending Clinician Unavailable Moustapha Magana MD Attending Clinician CHRISTOPHE SÁNCHEZ Attending Clinician Unavailable Christophe Winkler Attending Clinician Edgar Dotson MD Attending Clinician Yesenia Feliz RN Attending Clinician Unavailable Room, [facility] Nst Attending Clinician Unavailable 1, Adc Lab Attending Clinician Unavailable Ultrasound, Adc Mfm Attending Clinician Unavailable Li Barajas MD Attending Clinician LI BARAJAS Attending Clinician Unavailable LI BARAJAS Attending Clinician Unavailable 2, Adc Lab Attending Clinician Unavailable Nurse, [facility] Attending Clinician Unavailable Columba Dill PA-C Attending Clinician Ultrasound, Ang-Mfm Attending Clinician Unavailable Edd Maya MD Attending Clinician EDD MAYA Attending Clinician Unavailable MOUSTAPHA MAGANA Admitting Clinician Unavailable MARY KRISHNA Admitting Clinician Unavailable Moustapha Magana MD Admitting Clinician Payers Payer Name Policy Type Policy Number Effective Date Expiration Date [facility] [id number] 2021 MEDICAID 00:00:00 [place]ICAID OF [place] [id number] 2022 00:00:00 Problems Condition Condition Condition Status Onset Resolution Last Treating Co mments Source Name Details Category Date Date Treatment Clinician Date 38 weeks 38 weeks Disease Active Unive rs gestation gestation 1-09 ity of of of 00:: [place] 00 [facility] Hyponatrem Hyponatrem Disease Active U dominic ia ia 1-09 ity of 00:00: [place] 00 [facility] Acute Acute Disease Active Univers cystitis cystitis -09 ity of without without 00:00: [place] hematuria hematuria 00 [facility] Liveborn Liveborn Disease Active Unive rs infant, of , of 1-09 it y of causey causey 00:[place] , , 00 [place] dical born in born in [facility] hospital by vaginal by vaginal delivery delivery Hemorrhoid Hemorrhoid Disease Active 2020-08 U dominic s, s, 2-29 ity of unspecifie unspecifie [place] 00 Medical hemorrhoid hemorrhoid Br anch type type Leg Leg Disease Active 2020-08 Univers swelling swelling 2-29 ity of in in 00:00: [place] [facility] in third in third Branch trimester trimester Itching Itching Disease Active 2020-08 Univers 2-29 ity of 00:00: [place] 00 [facility] Low back Low back Disease Active 2020-08 Unive rs pain pain 2-29 ity of during during 00:: [place] [facility] in third in third Branch trimester trimester [...] third 00:00: [place] trimester trimester 00 [facility] Branch Low serum Low serum Disease Active Uni vers vitamin D vitamin D 6-24 ity of 00:00: [place] 00 Medical Branch History of History of Disease Active U nivers hypothyroi hypothyroi 6-24 it y of dism dism 00:00: [place] 00 Medical Branch Allergies, Adverse Reactions, Alerts [...] Not sure University of SARS-CoV-2 00:00:00 16:49:00 [place] Medical (event) Branch Alcohol intake 2022-09-13 2022-09-13 Lifetime University of 00:00:00 00:00:00 non-drinker [place] Medical (finding) Branch Tobacco use and 2022-03-16 2022-03-16 Smokeless tobacco Un iversity of exposure 00:00:00 00:00:00 non-user [facility] Sex Ass[birth year] At [birth year] Universit y of 00:00:00 00:00:00 [facility] Smoking Status Start Date Stop Date Source Never smoked tobacco [facility] Medications Ordered Filled Start Stop Current Ordering Indication Dosage Frequency Signature Comments Components Source Medication Medication Date Date Medication? Clinician (SIG) Name Name clonazePAM 2022- No .5mg Take 0.5 Un carlos a 0.5 mg 2-07 02-07 mg by ity of tablet 16:56: 00:00 mouth as [place] 00 :00 [facility]. [facility] clonazePAM 2022- No .5mg Take 0.5 Un carlos a 0.5 mg 2-07 02-07 mg by ity of tablet 16:56: 00:00 mouth as [place] 00 :00 needed. [facility] escitalopra Yes [id number] 20mg Take 1 Univers m oxalate 2-07 tablet by ity o f (LEXAPRO) 00:00[place] 20 mg 00 the Medical tablet morning. Branch escitalopra Yes [id number] 20mg Take 1 Univers m oxalate 2-07 tablet by ity o f (LEXAPRO) 00:00[place] 20 mg 00 the Medical tablet morning. Branch busPIRone 2022- Yes [id number] 10mg Take 1 U nivers 10 mg 2-07 03-25 tablet by ity of tablet 00:00: 04:59 mouth 2 [place] 00 :00 (two) Medical times [place] daily as needed for Pain (scale 7-10) for up to 45 days. busPIRone 2022- Yes [id number] 10mg Take 1 U nivers 10 mg 2-07 03-25 tablet by ity of tablet 00:00: 04:59 mouth 2 [place] 00 :00 (two) Medical [facility] daily as needed for Pain (scale 7-10) for up to 45 days. SERTraline 2021- No 25mg Take 25 mg Univers 25 mg -16 -16 by mouth ity of tablet 14:09: 00:00 daily. [place] 40 :00 [facility] 2021- No Take by Unive rs vit 04-22 mouth. ity of calc,iron,f 14:09: 00:00 [place] olic 31 :00 Medical ( Branch VITAMIN ORAL) ferrous 2021- [facility] 04-22 mouth. ity of (IRON ORAL) 14:09: 00:00 [place] 09 :00 Medical Branch clonazePAM Yes .5mg Take 0.5 Uni vers 0.5 mg 5-04 mg by ity of tablet 22:29: mouth as [place] 55 needed. Medical Branch acetaminoph 2021- No [id number] 1{capsu Take 1 Univers en-caff-but 08-18 le} capsule by i ty of albital 00:00: 00:00 mouth [place] (ESGIC) per 00 :00 every 4 Medic al capsule (four) Branch hours as needed (headache) . cyclobenzap 2021- No [id number] 10mg Take 1 Univers rine 10 mg 08-18 tablet by ity of tablet 00:00: 00:00 mouth 3 [place] 00 :00 (three) Medical times Branch daily. 2021- No [id number] 1{tbl} Take 1 Univers vitamin 08-16 102 tablet by ity of w/FA tablet 00:00: 00:00 [place] 00 :00 daily. Medical Branch docusate 2021- No [id number] 240mg Take 1 Univers calcium 240 08-16 102 capsule by i ty of mg capsule 00:00: 00:00 mouth once [place] 00 :00 daily as Medical needed for Branch Constipati on. ferrous 2021- No [id number] 325mg Take 1 Univers sulfate 325 08-16 102 tablet by it y of mg (65 mg 00:00: 00:00 mouth 2 [place] iron) 00 :00 (two) Medical tablet times Branch daily. ibuprofen 2021- No [id number] 600mg Take 1 Univers 600 mg 08-16 102 tablet by ity of tablet 00:00: 00:00 mouth [place] 00 :00 every 6 Medical (six) Branch hours as needed (Pain). Take with food or milk. omeprazole 2020-08- No [id number] 40mg Take 1 Univers 40 mg 014 04-22 capsule by ity of capsule 00:00: 00:00 mouth [place] 00 :00 daily. Medical Branch famotidine 2021- No [id number] 20mg Take 1 Univers 20 mg 04-26 tablet by ity of tablet 00:00: 00:00 mouth 2 [place] 00 :00 (two) Medical times [place] daily. Immunizations Ordered Filled Immunization Date Status Comments [facility] e Immunization Name Name Rho (d) Immune 2021-08-16 Completed University of Globulin 00:00:00 [facility] Rho (d) Immune 2021-08-16 Completed University of Globulin 00:00:00 [facility] Rho (d) Immune 2021-08-16 Completed University of Globulin 00:00:00 [facility] TDAP 2021-06-29 Completed University of 00:00:00 [facility] TDAP 2021-06-29 Completed University of 00:00:00 [facility] TDAP 2021-06-29 Completed University of 00:00:00 [facility] Rho (d) Immune 2021-06-08 Completed University of Globulin 00:00:00 [facility] Rho (d) Immune 2021-06-08 Completed University of Globulin 00:00:00 [facility] Rho (d) Immune 2021-06-08 Completed University of Globulin 00:00:00 [facility] Vital Signs Vital Name Observation Time Observation Value Comments Source Systolic blood 2022-04-22 18:24:00 130 mm[Hg] Univer sity of pressure [facility] Diastolic blood 2022-04-22 18:24:00 79 mm[Hg] Unive rsity of pressure [facility] Heart rate 2022-04-22 18:24:00 80 /min [facility] Body temperature 2022-04-22 18:24:00 36.94 Margie [facility] Res[facility] 2022-04-22 18:24:00 18 /min [facility] Body height 2022-04-22 18:24:00 160 cm [facility] Body weight 2022-04-22 18:24:00 109.045 kg [facility] BMI 2022-04-22 18:24:00 42.58 kg/m2 Universi ty of [facility] Procedures This patient has no known procedures. Encounters Start End Encounter Admission Attending Care Care Encounter Source Date/Time Date/Time Type Type Clinicians Facility Department ID 2021-08-04 Outpatient P [facility] PADDY [id number] Univers 16:31:24 ity [facility] 2022-10-11 2022-10-11 Outpatient R VIVIEN [facility] [id number] Univers 16:00:00 16:00:00 MARY CARMENGUI bernal [facility] 2022-09-13 2022-09-13 Outpatient R VIVIEN [facility] [id number] Univers 16:30:00 17:19:53 MARY CARMEN bernal [facility] 2022-09-13 2022-09-13 [facility] 1.2.840.114 [id number] Univers 16:30:00 17:19:53 Visit Mary Carmen [facility] [id number] it y of [facility] [id number] [place] as JESSICA?BLEA [id number] Sd yung [address] OFFICE BUILDING 2022-08-30 2022-08-30 Outpatient R VIVIEN [facility] [id number] Univers 15:00:00 15:00:00 MARY CARMEN bernal [facility] 2022-05-13 2022-05-13 Outpatient R PENG [facility] [id number] Univers 13:30:00 13:30:00 LIONEL itana [facility] 2022-04-22 2022-04-22 Outpatient R SAMSON WALKER [facility] [id number] Univers 13:00:00 14:07:49 ity [facility] 2022-04-22 2022-04-22 Office Samson Walker [facility] 1.2.840.114 [id number] Univers 13:00:00 14:07:49 Visit SAV [id number] i ty of [place] 4.2.7.2.686 [place] [id number] Sd yung [place] [address] Branch BUILDING 2022-04-22 2022-04-22 Outpatient R SAMSON WALKER [facility] [id number] Univers 13:00:00 14:07:49 ity of [facility] 2022-03-16 2022-03-16 Outpatient R TOMI, [facility] [id number] Univers 15:00:00 23:59:00 MARY santana [facility] 2022-03-16 2022-03-16 Outpatient R TOMI, [facility] [id number] Univers 15:00:00 15:00:00 MARY santana [facility] 2022-03-15 2022-03-15 Laboratory Only, Adc Test [facility] 1.2.840. [id number] Univers 11:15:00 11:30:00 Only Mary Krishna [id number] ity [facility] [id number] [place] [id number] [facility] [address] [place] 2022-03-15 2022-03-15 Outpatient R TOMI, [facility] [id number] Univers 11:15:00 11:15:00 BARRINGTONANIVAL dolores esther [facility] 2022-02-22 2022-02-22 Telephone [facility] Syed [id number] Univers 00:00:00 00:00:00 Izbaela KNAPP [id number] i ty [facility] 4.2.7.2.686 [place] as [id number] [address] 2022-02-22 2022-02-22 Telephone [facility] Syed [id number] Univers 00:00:00 00:00:00 Izabela KNAPP 350.1.13.10 i ty [facility] 4.2.7.2.686 [place] [id number] [facility] [address] [place] 2022-02-22 2022-02-22 Telephone [facility] 1.2.086.601 [id number] Univers 00:00:00 00:00:00 Mary ANG 350.1.13.10 ity [facility] 4.2.7.2.686 [place] [id number] [facility] [address] [facility] 2022-02-22 2022-02-22 Telephone [facility] [id number] Univers 00:00:00 00:00:00 Qiasojun [place] 350.1.13.10 ity of [place] 4.2.7.2.686 [place] [id number] Sd dical NAL [address] [place] [address] 2022-02-14 2022-02-14 Outpatient R TOMI, [facility] [id number] Univers 16:00:00 23:59:00 QIANGJUN ity o f [facility] 2022-02-14 2022-02-14 Outpatient R TOMI, [facility] [id number] Univers 16:00:00 23:59:00 QIANGJUN ity o f [facility] 2022-02-10 2022-02-10 Telephone [facility] [id number] Univers 00:00:00 00:00:00 Barringtonjun [place] 350.1.13.10 ity of [place] 4.2.7.2.686 [place] [id number] Sd dical NAL [address] [place] [address] 2021-12-08 2021-12-08 Telephone [facility] [id number] Univers 00:00:00 00:00:00 Mary ANDRETON 350.1.13.10 ity of [place] 4.2.7.2.686 [place] [id number] Sd dical NAL [address] [place] [address] 2021-12-02 2021-12-02 Outpatient R TOMI, [facility] [id number] Univers 10:46:04 11:13:00 QIANGJUN ity o f [facility] 2021-12-02 2021-12-02 Outpatient R TOMI, [facility] [id number] Univers 11:00:00 11:00:00 QIANGJUN ity o f [facility] 2021-12-01 2021-12-01 Office [facility] 1.2.840.114 [id number] Univers 08:00:00 08:35:02 Visit Mary ANDRETON 350.1.13.10 ity of [place] 4.2.7.2.686 [place] [phone] [place] [address] [facility] 2021-12-01 2021-12-01 Outpatient R TOMI, [facility] [id number] Univers 08:00:00 08:35:02 MARY bernal o [facility] 2021-12-01 2021-12-01 Office [facility] 1.2.840.114 [id number] Univers 08:00:00 08:35:02 Visit Mary ANG 350.1.13.10 ity of [facility] 4.2.7.2.686 [place] [id number] [address] 2021-12-01 2021-12-01 Outpatient R TOMI, [facility] [id number] Univers 08:00:00 08:35:02 MARY bernal o [facility] 2021-12-01 2021-12-01 Outpatient R TOMI, [facility] [id number] Univers 08:00:00 08:35:02 TONIAANIVAL bernal [facility] 2021-11-22 2021-11-22 Orders Doctor SIMON 1.2.840.114 [id number] Univers 00:00:00 00:00:00 Only Unassigned, [place] 350.1.13.[address] [facility] [facility] 4.2.7.2.686 [place] as [id number] [address] 2021-09-16 2021-09-16 [facility] [id number] Univers 13:30:00 13:30:00 MARY CARMEN bernal [facility] 2021-08-24 2021-08-24 Office [facility] 1.2.840.114 [id number] Univers 09:00:00 10:19:36 [facility] 350.1.13.10 it y of [place] 4.2.7.2.686 [place] as JESSICA?BLEA [id number] [facility] 044 [facility] OFFICE [facility] 2021-08-24 2021-08-24 [facility] [id number] Univers 09:00:00 10:19:36 MARY CARMEN ity [facility] 2021-08-24 2021-08-24 Outpatient R VIVIEN [facility] [id number] Univers 09:00:00 09:00:00 MARY CARMEN ity of [facility] 2021-08-18 2021-08-18 Outpatient R MOUSTAPHA MAGANA [facility] [id number] Univers 13:15:00 14:56:02 ity [facility] 2021-08-18 2021-08-18 Routine Moustapha Magana [facility] [id number] Univers 13:15:00 14:56:02 Cam [place] 350.1.13.10 ity of Visit [place] 4.2.7.2.686 [facility] PROFESSIO [id number] Sd dical [address] 2021-08-16 2021-08-16 Emergency X [facility] E[facility] [id number] Univers 22:40:00 22:41:00 CHRISTOPHE ity [facility] 2021-08-16 2021-08-16 Emergency [facility] 1.2.840.114 [id number] Univers 22:40:00 22:41:00 Christophe B [place] 350.1.13.10 i ty of [place] 4.2.7.2.686 [facility] [id number] [address] 2021-08-16 2021-08-16 Outpatient X MOUSTAPHA MAGANA [facility] PADDY [id number] Univers 21:21:00 22:11:00 ity of [facility] 2021-08-16 2021-08-16 Outpatient X MOUSTAPHA MAGANA [facility] P[facility] [id number] Univers 21:21:00 22:11:00 ity [facility] 2021-08-16 2021-08-16 Emergency Izzy [facility] 1.2.840.114 [id number] Univers 21:21:00 22:11:00 Cam [place] 350.1.13.10 i ty of [place] 4.2.7.2.686 [facility] [id number] [address] 2021-08-14 2021-08-16 Hospital Moustapha Magana [facility] 1.2.840.114 [id number] Univers 19:15:00 15:05:00 Encounter Cam [place]AV 350.1.13.10 ity of [place] 4.2.7.2.686 [place] [id number] [facility] 083 Branch 2021-08-16 2021-08-16 Outpatient R [facility] [id number] Univers 09:00:00 09:00:00 ity of [facility] 2021-08-15 2021-08-15 Anesthesia Nila [facility] 1.2.840.114 [id number] Univers 07:25:00 13:02:00 Event Edgar ANG 350.1.13.10 i ty of [place] 4.2.7.2.686 [place] [id number] [facility] [address] [place] 2021-08-14 2021-08-14 Nurse Yesenia Feliz 1.2.840.114 [id number] Univers 00:00:00 00:00:00 Triage RA 350.1.13.10 it y of HOSPITAL 4.2.7.2.686 [place] [id number] [facility] 019 Branch 2021-08-12 2021-08-12 Outpatient R MOUSTAPHA MAGANA [facility] [id number] Univers 09:00:00 10:07:36 ity of [facility] 2021-08-12 2021-08-12 Routine Room, Mark Nst [facility] 1.2.840.1 [id number] Univers 09:00:00 10:07:36 Moustapha Magana 350.1.13.10 ity of Visit [place] 4.2.7.2.686 [facility] PROFESS[place] [id number] Sd dical [facility] [address] Branch [facility] 2021-08-11 2021-08-11 Outpatient R MOUSTAPHA MAGANA [facility] [id number] Univers 13:15:00 13:15:00 ity of [facility] 2021-08-09 2021-08-09 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 1, Mark Lab [facility] 1.2.840.114 [id number] Univers 12:00:00 12:15:00 Visit Moustapha Magana 350.1.13.10 ity of [place] 4.2.7.2.686 [place] [id number] [facility] 353 Branch 2021-08-09 2021-08-09 Outpatient R MOUSTAPHA MAGANA [facility] [id number] Univers 10:00:00 11:33:08 ity of [facility] 2021-08-09 2021-08-09 Routine Room, Adc [facility] 1.2.840.1 [id number] Univers 10:00:00 11:33:08 Moustapha Magana 350.1.13.10 ity of [place] 4.2.7.2.686 [place] [facility] [id number] Sd dical NAL [address] [facility] 2021-08-05 2021-08-05 Outpatient R [facility] [id number] Univers 08:45:00 08:45:00 ity of [facility] 2021-08-04 2021-08-04 Outpatient P MOUSTAPHA MAGANA [facility] PADD[facility] [id number] Univers 12:39:00 16:10:00 ity of [facility] 2021-08-04 2021-08-04 [facility] Moustapha Magana [facility] 1.2.840.114 [id number] Univers 12:39:00 16:10:00 Encounter Prem ANG 350.1.13.10 ity of [place] 4.2.7.2.686 [place] [id number] [facility] [address] [place] 2021-08-04 2021-08-04 Outpatient R MOUSTAPHA MAGANA [facility] [id number] Univers 09:45:00 12:15:41 ity of [facility] 2021-08-04 2021-08-04 Routine Moustapha Magana [facility] [id number] Univers 09:45:00 12:15:41 Prem [place] 350.1.13.10 ity of Visit [place] 4.2.7.2.686 [place] [id number] Sd dical NAL [address] [facility] [facility] 2021-08-03 2021-08-03 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 Ultrasound, [facility] 1.2 .840.114 [id number] Univers 08:00:00 08:30:00 Visit Li Barajas 350.1.13.10 ity of [place] 4.2.7.2.686 [place] [id number] Sd dical NAL [address] [facility] [facility] 2021-08-03 2021-08-03 Outpatient P LI BARAJAS [facility] [id number] Univers 08:00:00 08:00:00 LI BARAJAS ity of [facility] 2021-07-28 2021-07-28 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 2, Adc Lab [facility] 1.2.840.114 [id number] Univers 13:15:00 13:17:03 Visit Moustapha Magana 350.1.13.10 ity of [place] 4.2.7.2.686 [place] [id number] Sd dical NAL [address] [facility] [facility] 2021-07-28 2021-07-28 Outpatient R MOUSTAPHA MAGANA [facility] [id number] Univers 13:15:00 13:15:00 ity of [facility] 2021-07-28 2021-07-28 [facility] 1.2.102.022 [id number] Univers 10:45:00 12:27:55 Cam [place] 350.1.13.10 ity of Visit [place] 4.2.7.2.686 [place] [id number] Sd dical NAL [address] [place] [address] 2021-07-13 2021-07-13 Routine Moustapha Magana [facility] [id number] Univers 13:33:36 14:15:32 Cam [place] 350.1.13.10 ity of [place] 4.2.7.2.686 [place] [id number] Sd dical NAL [address] [facility] [facility] 2021-07-13 2021-07-13 Outpatient R MAGANA MOUSTAPHA [facility] [id number] Univers 13:15:00 14:15:32 ity of [facility] 2021-06-30 2021-06-30 Outpatient R MOUSTAPHA MAGANA [facility] [id number] Univers 16:00:00 16:00:00 ity of [facility] 2021-06-29 2021-06-29 Routine Magana [facility] [id number] Univers 11:24:21 12:02:34 Cam [place] 350.1.13.10 ity of Visit [place] 4.2.7.2.686 [place] [id number] Sd dical NAL [address] [place] [address] 2021-06-29 2021-06-29 Outpatient P JENN LI [facility] [id number] Univers 11:00:00 11:25:51 LI BARAJAS ana [facility] 2021-06-29 2021-06-29 Outpatient P LI BARAJAS [facility] [id number] Univers 11:00:00 11:25:51 JENN LI [facility] 2021-06-29 2021-06-29 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 Ultrasound, [facility] 1.2 .840.114 [id number] Univers 10:56:01 11:25:51 Visit Li Barajas Joey SAV 350.1.13.10 ity of [place] 4.2.7.2.686 [place] [id number] Sd dical NAL [address] [place] [address] 2021-06-23 2021-06-23 Outpatient P [facility] [id number] Univers 09:00:00 09:00:00 ity of [facility] 2021-06-23 2021-06-23 Outpatient P [facility] [id number] Univers 09:00:00 09:00:00 ity [facility] 2021-06-17 2021-06-17 Brigitte Magana [facility] [id number] Univers 13:05:55 14:07:46 Cam [place] 350.1.13.10 ity of Visit [place] 4.2.7.2.686 [place] [id number] Sd dical NAL [address] [place] [address] 2021-06-17 2021-06-17 Outpatient R MOUSTAPHA MAGANA [facility] [id number] Univers 13:00:00 14:07:46 ity [facility] 2021-06-08 2021-06-08 Outpatient R MOUSTAPHA MAGANA [facility] [id number] Univers 14:30:00 14:30:00 ity [facility] 2021-06-08 2021-06-08 Nurse Nurse, [facility] 1.2.840.114 [id number] Univers 13:06:02 13:34:35 Visit Moustapha MaganaMARIANA 350.1.13.10 ity of [place] 4.2.7.2.686 [place] [id number] Sd dical NAL [address] 2021-06-08 2021-06-08 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 2, [facility] [place] 1.2.840.114 [id number] Univers 08:20:42 08:35:42 Visit Moustapha Magana SAV [id number] it[place] of [id number] [phone] S[place] dical NAL [address] 2021-06-03 2021-06-03 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 2, [facility] [id number] [id number] Univers 10:33:03 11:48:31 Visit Moustapha Magana Prem ANG [id number] it[place] of [id number] [phone] Sd dical NAL [address] [place] [address] 2021-06-03 2021-06-03 Outpatient R MOUSTAPHA MAGANA [facility] [id number] Univers 10:00:00 10:00:00 ity of [facility] 2021-06-03 2021-06-03 Case Aniyah [facility] [id number] Univers 00:00:00 00:00:00 Management Columba ANG [id number] it[place] of [id number] [phone] Sd dical NAL [address] 2021-05-20 2021-05-20 Routine Izzy [facility] [id number] Univers 15:38:31 16:28:19 Prem Ang [id number] ity of [id number] [phone] Sd dical nal 134 [facility] 2021-05-20 2021-05-20 Outpatient R MOUSTAPHA MAGANA [facility] [id number] Univers 15:30:00 15:30:00 ity of [facility] 2021-04-26 2021-04-26 Routine Moustapha Magana [facility] [id number] Univers 11:37:34 12:22:57 Cam [place] [id number] ity of [id number] Profess[place] [phone] [address] 2021-04-26 2021-04-26 Outpatient R MOUSTAPHA MAGANA [facility] [id number] Univers 11:00:00 11:00:00 ity [facility] 2021-04-22 2021-04-22 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 Ultrasound, [facility] [id number] Univers 10:31:00 11:46:00 Visit Edd Maya VIOLIN REPAIRER [id number] ity of [facility] [id number] [place] as MATERNAL [phone] Med ical & CHILD [address] [place] [address] 2021-04-22 2021-04-22 Outpatient P [facility] [id number] Univers 10:00:00 10:00:00 ity [facility] 2021-04-22 2021-04-22 Outpatient P DAWOOD [facility] [id number] Univers 10:00:00 10:00:00 EDD ity [facility] 2021-04-22 2021-04-22 [facility] [id number] Univers 00:00:00 00:00:00 Management Cam [place] [id number] it[place] of [id number] [phone] Sd dic[address] 2021-04-05 2021-04-05 Telephone Moustapha Magana [facility] [id number] Univers 00:00:00 00:00:00 Cam [place] 350.1.13.10 i ty of [id number] [phone] Me dic[address] 2021-04-05 2021-04-05 Telephone Moustapha Magana [facility] [id number] Univers 00:00:00 00:00:00 Prem Ang [id number] i ty of [id number] [phone] [address] 2021-03-25 2021-03-25 Outpatient R TOMI [facility] [id number] Univers 15:00:00 15:55:18 QIAJUSTIN ity o f [facility] 2021-03-25 2021-03-25 [facility] [id number] [id number] Univers 14:45:22 15:05:22 Visit Mary Ang [id number] ity of [id number] [phone] [facility] 059 [facility] 2021-03-25 2021-03-25 Routine Moustapha Magana [facility] [id number] Univers 14:05:15 14:20:15 Prem Ang [id number] ity of [id number] [phone] [address] 2021-03-25 2021-03-25 Orders Doctor [facility] 1.2.840.114 [id number] Univers 00:00:00 00:00:00 Only Unassigned, RA 350.1.13.10 ity of [facility] [id number] [place] as [phone] [address] 2021-03-25 2021-03-25 Orders Doctor [facility] 1.2.840.114 [id number] Univers 00:00:00 00:00:00 Only Unassigned, RA 350.1.13.10 ity of [facility] [id number] [place] as [phone] [address] 2021-03-16 2021-03-16 Routine Moustapha Magana [facility] [id number] Univers 15:55:35 16:49:42 Cam [place] 350.1.13.10 ity of [id number] [phone] Sd dic[address] 2021-03-16 2021-03-16 Outpatient R IZZY MOUSTAPHA [facility] [id number] Univers 16:00:00 16:00:00 ity of [facility] 2021-03-16 2021-03-16 [facility] [id number] Univers 00:00:00 00:00:00 Secure Msg Cam [place] [id number] ity of [id number] [phone] [address] 2021-02-25 2021-02-25 Routine Izzy [facility] [id number] Univers 13:23:30 14:32:38 Cam [place] 350.1.13.10 ity of [id number] [phone] [address] 2021-02-25 2021-02-25 Outpatient R IZZY MOUSTAPHA [facility] [id number] Univers 13:15:00 13:15:00 ity of [facility] 2021-02-01 2021-02-01 Telephone Izzy [facility] 1.2.840.114 [id number] Univers 00:00:00 00:00:00 Cam Fy[place] 350.1.13.10 i ty of [id number] [phone] Sd dic[address] 2021-01-29 2021-01-29 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 1, Mark Alvarez [facility] 1.2.840.114 [id number] Univers 11:46:20 12:01:20 Visit Moustapha Magana [place] 350.1.13.10 ity of [id number] [phone] [address] 2021-01-29 2021-01-29 Outpatient R MOUSTAPHA MAGANA [facility] [id number] Univers 11:00:00 11:00:00 ity of [facility] 2021-01-28 2021-01-28 Initial Moustapha Magana [facility] [id number] Univers 14:02:08 15:38:20 Cam [place] 350.1.13.10 ity of [id number] [phone] Sd dical [address] 2021-01-28 2021-01-28 Outpatient R MOUSTAPHA MAGANA [facility] [id number] Univers 14:00:00 14:00:00 ity of [facility] 2021-01-28 2021-01-28 Orders Doctor [facility] [id number] [id number] Univers 00:00:00 00:00:00 Only Unassigned, RA 350.1.13.10 ity of [place] [facility] [id number] [place] as [phone] [place] [address] Branch Results This patient has no known results.
[2022-10-07] MEDS ORDERED: LORAZEPAM 1 MG TABLET ONE ×2 (00:23→02:23)
[2022-10-07] MEDS ORDERED: NA CHLORIDE 0.9% 1,000 ML ONE (00:23)
[2022-10-07] MEDS ORDERED: FAMOTIDINE 20 MG/2 ML VIAL IV ONE (00:23)
[2022-10-07 01:16] LABS: Absolute Lymphocytes (CBC) 2.1 K/uL (0.7-4.9); Hematocrit 36.6 % (36.0-45.0); Lymphocytes % 16.3 % (15.3-44.8); MCV 77.7 fL (80-100); MPV 7.9 fL (7.6-11.3); RBC Red Blood Cell Count 4.72 M/uL (3.86-4.86)
[2022-10-07 01:21] LABS: Protime INR 1.1
[2022-10-07 01:36] LABS: Urine Blood Trace-lysed (Negative); Urine Glucose Negative (Negative); Urine Protein Negative (Negative)
[2022-10-07 01:42] LABS: ALT/SGPT 21 U/L (13-56); AST/SGOT 14 U/L (15-37); Albumin 3.8 g/dL (3.4-5.0); Alkaline Phosphatase 74 U/L (45-117); BUN Blood Urea Nitrogen 14 mg/dL (7-18); Bicarbonate 28 mmol/L (21-32); Bilirubin Direct 0.1 mg/dL (0-0.2); Bilirubin Total 0.5 mg/dL (0.2-1.0); Glomerular Filtration Rate 85 ml/min (=/>90); Glucose Level 104 mg/dL (74-106); Magnesium 2.3 mg/dL (1.6-2.4); NT PRO-BNP 33 pg/mL (<125); Potassium 3.9 mmol/L (3.5-5.1); Protein, Total 7.4 g/dL (6.4-8.2); Sodium Level 140 mmol/L (136-145)
[2022-10-07 01:49] LABS: Troponin High Sensitivity < 3.0 pg/mL (<58.9)
--- NOTE | 2022-10-07 01:57 | EDPHYS ---
Physician Documentation [facility] Name: Marivel Loya Age: 37 yrs Sex: Female : 1985 Arrival Date: 10/06/2022 Time: 23:24 Bed 18 Private MD: ED Physician Ambrosio Bateman HPI: 10/07 00:04 This 37 yrs old Female presents to ER via Ambulatory with complaints of Irregular Pulse.pm1 00:04 The patient presents with a history of heart racing. Context: The symptoms occur after pm1 eating food and having the sensation of heart burn. Onset: The symptoms/episode began/occurred 2 hour(s) ago. Duration: The patient or guardian reports a single episode, that is still ongoing. Modifying factors: The symptoms are aggravated by anxiety, The symptoms are alleviated by nothing. Associated signs and symptoms: Pertinent positives: anxiety, chest pain, Pertinent negatives: cough, nausea, SOB, vomiting. Severity of symptoms: in the emergency department the symptoms are unchanged. Patient with history of anxiety and prior anxiety attacks. The patient has not recently seen a physician. 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 - Social history:: Smoking status: Patient denies any tobacco usage or history of. ROS: 10/07 00:04 Constitutional: Negative for fever, chills, and weight loss, Respiratory: Negative for pm1 shortness of breath, cough, wheezing, and pleuritic chest pain. Abdomen/GI: Negative for abdominal pain, nausea, vomiting, diarrhea, and constipation, Back: Negative for injury and pain, MS/Extremity: Negative for injury and deformity, Skin: Negative for injury, rash, and discoloration, Neuro: Negative for headache, weakness, numbness, tingling, and seizure. Cardiovascular: Positive for chest pain, palpitations. All other systems are negative. Exam: 00:04 Constitutional: This is a well developed, well nourished patient who is awake, alert, pm1 and in no acute distress. Head/Face: Normocephalic, atraumatic. 00:04 Back: No spinal tenderness. No costovertebral tenderness. Full range of motion. Skin: Warm, dry with normal turgor. Normal color with no rashes, no lesions, and no evidence of cellulitis. MS/ Extremity: Pulses equal, no cyanosis. Neurovascular intact. Full, normal range of motion. 00:04 Cardiovascular: Exam negative for acute changes, Rate: tachycardic, actual rate is 112 bpm, Rhythm: regular, Pulses: no pulse deficits are appreciated, Heart sounds: normal, normal S1and S2. 00:04 Respiratory: Exam negative for acute changes, respiratory distress, shortness of breath, Breath sounds: are clear throughout. 00:04 Abdomen/GI: Exam negative for acute changes, Inspection: abdomen appears normal, Palpation: abdomen is soft and non-tender, in all quadrants. 00:04 Neuro: Exam negative for acute changes, Orientation: is normal, Mentation: is normal, Motor: is normal, moves all fours. Vital Signs: 10/06 23:34 BP 120 / 110; Pulse 112; Resp 22; Temp 97.7; Pulse Ox 100% ; Weight 99.79 kg; Height 5 vc1 ft. 3 in. (160.02 cm); 10/07 00:50 BP 110 / 75; Pulse 95; Resp 18 S; Pulse Ox 99% on R/A; ha1 02:00 BP 105 / 78; Pulse 96; Resp 19; Pulse Ox 99% ; ha1 02:35 BP 107 / 75; Pulse 92; Resp 18 S; Pulse Ox 98% on R/A; ha1 10/06 23:34 Body Mass Index 38.97 (99.79 kg, 160.02 cm) vc1 MDM: 10/06 23:53 Patient medically screened. pm1 10/07 01:56 Data reviewed: vital signs. pm1 01:56 Counseling: I had a detailed discussion with the patient and/or guardian regarding: the pm1 historical points, exam findings, and any diagnostic results supporting the discharge/admit diagnosis, lab results, radiology results, the need for outpatient follow up, to return to the emergency department if symptoms worsen or persist or if there are any questions or concerns that arise at home. 10/07 00:04 Order name: Basic Metabolic Panel pm1 10/07 00:04 Order name: CBC with Diff pm10/07 00:04 Order name: LFT's pm10/07 00:04 Order name: Magnesium pm10/07 00:04 Order name: NT PRO-BNP pm10/07 00:04 Order name: PT-INR pm10/07 00:04 Order name: Troponin HS pm10/07 00:04 Order name: XRAY Chest (1 view) pm10/07 00:04 Order name: EKG; Complete Time: 00:05 pm10/07 00:04 Order name: Cardiac monitoring; Complete Time: 01:52 pm1 10/07 00:04 Order name: EKG - Nurse/Tech; Complete Time: 00:50 pm1 10/07 00:04 Order name: IV Saline Lock; Complete Time: 01:52 pm1 10/07 00:04 Order name: Labs collected and sent; Complete Time: 01:52 pm1 10/07 00:04 Order name: O2 Per Protocol; Complete Time: 01:52 pm1 10/07 00:04 Order name: O2 Sat Monitoring; Complete Time: 01:52 pm1 10/07 00:04 Order name: TSH pm10/07 00:04 Order name: Urine Dipstick-Ancillary (obtain specimen); Complete Time: 01:52 pm1 10/07 00:04 Order name: Urine Test (obtain specimen); Complete Time: 01:52 pm1 10/07 00:04 Order name: UDS pm10/07 01:18 Order name: CBC with Automated Diff; Complete Time: 01:27 EDMS 10/07 01:21 Order name: Protime (+INR); Complete Time: 01:27 EDMS 10/07 01:36 Order name: Urine Dipstick-Ancillary; Complete Time: 01:55 EDMS 10/07 01:49 Order name: Basic Metabolic Panel; Complete Time: 02:06 EDMS 10/07 01:49 Order name: Liver (Hepatic) Function; Complete Time: 02:06 EDMS 10/07 01:49 Order name: Troponin High Sensitivity; Complete Time: 02:06 EDMS 10/07 01:49 Order name: NT PRO-BNP; Complete Time: 02:06 EDMS 10/07 01:49 Order name: Magnesium; Complete Time: 02:06 EDMS 10/07 01:49 Order name: Thyroid Stimulating Hormone; Complete Time: 02:06 EDMS 10/07 02:03 Order name: T4 Free; Complete Time: 02:06 EDMS 10/07 02:09 Order name: Urine Drug Screen; Complete Time: 02:14 EDMS EC:54 Rate is 94 beats/min. Rhythm is regular, Normal Sinus Rhythm with No ectopy. QRS [place] pm1 is Normal. ME interval is normal. QRS interval is normal. QT interval is normal. No Q waves. T waves are Normal. No ST changes noted. Clinical impression: Normal ECG. Administered Medications: 00:18 Drug: Ativan (LORazepam) 1 mg Route: PO; ha1 00:50 Follow up: Response: No adverse reaction; Anxiety decreased ha1 00:40 Drug: NS 0.9% 1000 ml Route: IV; Rate: 1000 ml; Site: right antecubital; ha1 01:30 Follow up: Response: No adverse reaction; IV Status: Completed infusion; IV Intake: ha1 1000ml 00:46 Drug: Pepcid (famotidine) 20 mg Route: IVP; Site: right antecubital; ha1 01:00 Follow up: Response: No adverse reaction ha1 02:24 Drug: Ativan (LORazepam) 1 mg Route: PO; ha1 02:30 Follow up: Response: No adverse reaction; RASS: Alert and Calm (0) ha1 Disposition: 07:07 Co-signature as Attending Physician, Ambrosio Bateman MD I reviewed the patient's care rt provided by the Advanced Practice Provider and agree with the diagnosis and treatment plan. Disposition Summary: 10/07/22 01:56 Discharge Ordered Location: Home pm1 Problem: new pm1 Symptoms: have improved pm1 Condition: Stable pm1 Diagnosis - Palpitations pm1 - Anxiety disorder, unspecified pm1 Followup: pm1 - With: Emergency Department - When: As needed - Reason: Worsening of condition Followup: pm1 - With: Private Physician - When: 2 - 3 days - Reason: Recheck today's complaints, Continuance of care, Re-evaluation by your physician Discharge Instructions: - Discharge Summary Sheet pm1 - Palpitations pm1 - Generalized Anxiety Disorder, Adult pm1 - Managing Anxiety, Adult pm1 Forms: - Medication Reconciliation Form pm1 - Thank You Letter pm1 - Antibiotic Education pm1 - Prescription Opioid Use pm1 Signatures: Dispatcher [employer] Troy Ramos, ANIMAL RIDES MANAGER ANIMAL RIDES MANAGER pm1 Yeni Thomson RN RN vc1 Sophia De Leon RN RN ha1 Ambrosio Bateman MD MD rt
--- NOTE | 2022-10-07 01:57 | ER ---
Nurse's Notes [facility] Name: Marivel Loya Age: 37 yrs Sex: Female : 1985 Arrival Date: 10/06/2022 Time: 23:24 Bed 18 Private MD: Diagnosis: Palpitations;Anxiety disorder, unspecified Presentation: 10/06 23:34 Chief complaint: Patient states: "I felt my heart racing and my heart was 136.". vc1 Coronavirus screen: Vaccine status: Patient reports being unvaccinated. Client denies travel out of the [place] in the last 14 days. At this time, the client does not indicate any symptoms associated with coronavirus-19. Ebola Screen: Patient negative for fever greater than or equal to 101.5 degrees Fahrenheit, and additional compatible Ebola Virus Disease symptoms Patient denies exposure to infectious person. Patient denies travel to an Ebola-affected area in the 21 days before illness onset. No symptoms or risks identified at this time. Initial Sepsis Screen: Does the patient meet any 2 criteria? No. Patient's initial sepsis screen is negative. Does the patient have a suspected source of infection? No. Patient's initial sepsis screen is negative. Risk Assessment: Do you want to hurt yourself or someone else? Patient reports no desire to harm self or others. Onset of symptoms was October 06, 2022. 23:34 Method Of Arrival: Ambulatory vc1 23:34 Acuity: JOHN 3 vc1 Triage Assessment: 23:38 General: Appears uncomfortable, Behavior is anxious, crying. Pain: Denies pain. EENT: vc1 No deficits noted. No signs and/or symptoms were reported regarding the EENT system. Neuro: Level of Consciousness is awake, alert, obeys commands, Oriented to person, place, time, situation, Appropriate for age. Cardiovascular: Reports palpitations, shortness of breath, Patient's skin is warm and dry. Respiratory: Airway is patent Respiratory effort is even, unlabored, Respiratory pattern is regular, symmetrical. GI: No deficits noted. No signs and/or symptoms were reported involving the gastrointestinal system. : No deficits noted. No signs and/or symptoms were reported regarding the genitourinary system. Derm: No deficits noted. No signs and/or symptoms reported regarding the dermatologic system. Musculoskeletal: No deficits noted. No signs and/or symptoms reported regarding the musculoskeletal system. 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 - Social history:: Smoking status: Patient denies any tobacco usage or history of. Screenin:39 Abuse screen: Denies threats or abuse. Nutritional screening: No deficits noted. vc1 Tuberculosis screening: No symptoms or risk factors identified. 23:49 [facility] ED Fall Risk Assessment (Adult) History of falling in the last 3 months, ha1 including since admission No falls in past 3 months (0 pts) Confusion or Disorientation No (0 pts) Intoxicated or Sedated No (0 pts) Impaired Gait Yes (1 pt) Mobility Assist Device Used No (0 pt) Altered Elimination Score/Fall Risk Level 0 - 2 = Low Risk Oriented to surroundings, Maintained a safe environment, Educated pt \\T\\ family on fall prevention, incl call for assistance when getting out of bed. Assessment: 23:49 General: Appears uncomfortable, Behavior is anxious, crying. Pain: Complains of pain in ha1 chest Pain does not radiate. Pain Pain began suddenly. Neuro: Level of Consciousness is awake, alert, obeys commands, Oriented to person, place, time, situation. Cardiovascular: Reports palpitations, Heart tones S1 S2 present Capillary refill < 3 seconds Patient's skin is warm and dry. Rhythm is sinus rhythm. Respiratory: Airway is patent Respiratory effort is even, unlabored, Respiratory pattern is regular, symmetrical. GI: No signs and/or symptoms were reported involving the gastrointestinal system. : No signs and/or symptoms were reported regarding the genitourinary system. EENT: No signs and/or symptoms were reported regarding the EENT system. Derm: Skin is pink, warm \\T\\ dry. Musculoskeletal: Circulation, motion, and sensation intact. Range of motion: intact in all extremities, Reports a previous injured on the left foot. 10/07 00:50 Reassessment: Patient and/or family updated on plan of care and expected duration. Pain ha1 level reassessed. Patient is alert, oriented x 3, equal unlabored respirations, skin warm/dry/pink. Patient states symptoms have improved. 01:50 Reassessment: Patient and/or family updated on plan of care and expected duration. Pain ha1 level reassessed. Patient is alert, oriented x 3, equal unlabored respirations, skin warm/dry/pink. Patient denies pain at this time. Patient states feeling better. Patient states symptoms have improved. 02:32 Reassessment: Patient and/or family updated on plan of care and expected duration. Pain ha1 level reassessed. Patient is alert, oriented x 3, equal unlabored respirations, skin warm/dry/pink. Vital Signs: 10/06 23:34 BP 120 / 110; Pulse 112; Resp 22; Temp 97.7; Pulse Ox 100% ; Weight 99.79 kg; Height 5 vc1 ft. 3 in. (160.02 cm); 10/07 00:50 BP 110 / 75; Pulse 95; Resp 18 S; Pulse Ox 99% on R/A; ha1 02:00 BP 105 / 78; Pulse 96; Resp 19; Pulse Ox 99% ; ha1 02:35 BP 107 / 75; Pulse 92; Resp 18 S; Pulse Ox 98% on R/A; ha1 10/06 23:34 Body Mass Index 38.97 (99.79 kg, 160.02 cm) vc1 ED Course: 10/06 23:24 Patient arrived in ED. ja2 23:37 Triage completed. vc1 23:39 Arm band placed on left wrist. vc1 23:43 Troy Serrano NP is PHCP. pm1 23:43 Ambrosio Bateman MD is Attending Physician. pm1 23:49 Client placed on continuous cardiac and pulse oximetry monitoring. NIBP monitoring ha1 applied. 23:49 Patient has correct armband on for positive identification. Placed in gown. Bed in low ha1 position. Call light in reach. Side rails up X 1. 23:49 Patient maintains SpO2 saturation greater than 95% on room air. ha1 10/07 00:13 Sophia De Leon, SKIP is Primary Nurse. ha1 01:10 Inserted saline lock: 22 gauge in right antecubital area, using aseptic technique. pf1 Blood collected. 02:37 No provider procedures requiring assistance completed. IV discontinued, intact, ha1 bleeding controlled, No redness/swelling at site. Pressure dressing applied. Administered Medications: 00:18 Drug: Ativan (LORazepam) 1 mg Route: PO; ha1 00:50 Follow up: Response: No adverse reaction; Anxiety decreased ha1 00:40 Drug: NS 0.9% 1000 ml Route: IV; Rate: 1000 ml; Site: right antecubital; ha1 01:30 Follow up: Response: No adverse reaction; IV Status: Completed infusion; IV Intake: ha1 1000ml 00:46 Drug: Pepcid (famotidine) 20 mg Route: IVP; Site: right antecubital; ha1 01:00 Follow up: Response: No adverse reaction ha1 02:24 Drug: Ativan (LORazepam) 1 mg Route: PO; ha1 02:30 Follow up: Response: No adverse reaction; RASS: Alert and Calm (0) ha1 Medication: 03 23:39 VIS not applicable for this client. vc1 Intake: 03 01:30 IV: 1000ml; Total: 1000ml. ha1 Outcome: 01:56 Discharge ordered by MD. pm1 02:38 Discharged to home ambulatory. ha1 02:38 Condition: stable 02:38 Discharge instructions given to patient, Instructed on discharge instructions, follow up and referral plans. Demonstrated understanding of instructions, follow-up care. 02:41 Patient left the ED. ha1 Signatures: Troy Serrano TICKER MAINTAINER TICKER MAINTAINER pm1 Arlin Carrasco Vanessa, RN RN vc1 Sophia De Leon RN RN ha1 Jane eckert RN RN pf1
[2022-10-07 02:09] LABS: Barbiturates NEGATIVE (NEGATIVE); Benzodiazepines NEGATIVE (NEGATIVE); Cocaine NEGATIVE (NEGATIVE); METHAMPHETAM NEGATIVE (NEGATIVE); Methadone NEGATIVE (NEGATIVE); Opiates NEGATIVE (NEGATIVE); Phencyclidine NEGATIVE (NEGATIVE); THC Cannibis NEGATIVE (NEGATIVE)
[2022-10-07 03:13] VITALS: BP 107/75; O2SAT 98
[2022-10-07 03:46] VITALS: TEMP 97.7
--- NOTE | 2022-10-07 14:29 | EKG ---
Test Date: 2022-10-07 Test Time: 00:49:41 Publishing Director: CINDY MEASUREMENT RESULTS: Intervals: Rate: 94 IA: 180 QRSD: 92 QT: 356 QTc: 445 [place]: P: 60 IA: 180 QRS: 2 T: 34 INTERPRETIVE STATEMENTS: Normal sinus rhythm Normal ECG Compared to ECG 11/29/2021 00:30:23 No significant changes Electronically Signed On 10-07-22 14:28:06 GOLF COURSE LABORER by Robert Pérez
--- NOTE | 2022-10-07 19:40 | RAD REPORT ---
EXAM DESCRIPTION: RAD - Chest Single View - 10/07/2022 12:42 am CLINICAL HISTORY: 37 years Female Chest pain COMPARISON: Chest x-ray 11/29/2021 FINDINGS: Lung volumes diminished. Cardiac silhouette is normal in size. No pneumothorax. No large pleural effusion. No focal consolidation. No acute bony finding. IMPRESSION: No acute cardiopulmonary findings. Electronically signed by: Robb Bearden MD 10/07/2022 12:50 AM EXPEDITER CLERK Due to temporary technical issues with the PACS/Fluency reporting system, reports are being signed by the in house radiologists without review as a courtesy to insure prompt reporting. The interpreting radiologist is fully responsible for the content of the report
== END 2022-10-07 02:41 | disposition home or self-care (01) ==
LOC: ER 23:23
DX: R00.2 Palpitations (principal); F41.9 Anxiety disorder, unspecified; Z88.5 Allergy status to narcotic agent
CPT/HCPCS: 96361; 93005; 85025; 80048; 36415; 83735; 85610; 80076; 84443; 81003; 84484; 84439; 83880; 80307; 71045; 96374; 99285; J7030

== ENCOUNTER 2024-02-04 21:39 | Emergency (ER) | payer OTHER, SELFPAY ==
--- OUTSIDE RECORDS SUMMARY | 2024-02-04 21:46 | XMS REPORT | Continuity of Care Document ---
Author Name Unknown Address [address] [facility] [address] [place] [address] [facility] thconnect Address [address] [place] [address] Care Team Providers Care Jewelry Casting Model Maker Name Role Phone Eleazar Rodrigues Primary Care Physician [phone] ONEIL AMOR Attending Clinician Unavailable ELIEL GUTIERREZ Attending Clinician UnavailELIEL Olivera Attending Clinician UnavailLIONEL Chang Attending Clinician Unavailable LIONEL KHOURY Attending Clinician Unavailable RADHA LAZCANO Attending Clinician Unavailable RADHA LAZCANO Attending Clinician Unavailable ESPERANZA FRANZ Attending Clinician UnavailESPERANZA Spears Attending Clinician UnavailMARY Ayala Attending Clinician Unavailable Mirlande Agee Attending Clinician [phone] Eleazar Rodrigues Attending Clinician [phone] Alanna Acosta MD Attending Clinician + [phone] MIRLANDE RUBIO Attending Clinician Unavailable ELEAZAR PUGA Attending Clinician Unavailable Doctor Unassigned, [place] Attending Clinician U RICCO Neely Attending Clinician UnavailRICCO Cespedes Attending Clinician UnavailFLORENCE Manning Attending Clinician Unavailable Lab, Ang - Db Attending Clinician Unavailable KAYCEE DIANA Attending Clinician Unavailable Kaycee Diana MD Attending Clinician [phone] Mary Krishna MD Attending Clinician [phone] [facility] Sleep Lab Attending Clinician Unavailtracy Franz MD, Esperanza Darby Attending Clinician [phone] ALONDRA AVINA Attending Clinician Unavailable SAMSON WALKER Attending Clinician Unavailable Samson Walker MD Attending Clinician [phone] [place], [facility] Test Attending Clinician Unavailable Kunal LOW, Izabela Jauregui Attending Clinician + [phone] MOUSTAPHA MAGANA Attending Clinician Unavailable Moustapha Magana MD Attending Clinician +[phone] CHRISTOPHE SÁNCHEZ Attending Clinician Unavailable Christophe Winkler Attending Clinician [phone] Edgar Dotson MD Attending Clinician [phone] Yesenia Feliz RN Attending Clinician Unavailable [facility] Attending Clinician Unavailable 1, [facility] Attending Clinician Unavailable Ultrasound, [facility] Attending Clinician UnavailToshia Gallo MD Attending Clinician [phone] TOSHIA BARAJAS Attending Clinician Unavailable TOSHIA BARAJAS Attending Clinician Unavailable 2, [facility] Attending Clinician Unavailable Nurse, [facility] Attending Clinician Un available Columba Dill PA-C Attending Clinician [phone] Ultrasound, [facility] Attending Clinician UnavailMax Denis MD Attending Clinician [phone] MAX SEAY Attending Clinician Unavailabl e MOUSTAPHA MAGANA Admitting Clinician Unavailable KAYCEE DIANA Admitting Clinician Unavailable MARY KRISHNA Admitting Clinician Unavailable Moustapha Magana MD Admitting Clinician [phone] Payers Payer Name Policy Type Policy Number Effective Date Expirati on Date Source [facility] MEDICAID [id number] 2021 00:00:00 MED[place] [id number] 2022 00:00:00 Problems Condition Name Condition Details Condition Category Status Onset Date Resolution Date Last Treatment Date Treating Clinician Comments Source Morbid obesity with body mass index of 40.0-49.9 Morbid obesity with body mass index of 40.0-49.9 Disease Active 01-28 00:00: 00 [facility] History of hypothyroi dism History of hypothyroi dism Disease Active 01-28 00:00: 00 [facility] 38 weeks gestation of 38 weeks gestation of Disease Resolve d 1- 00:00: 00 2024-01-05 00:00:00 2024-01-05 10:58:14 [facility] Hyponatrem ia Hyponatrem ia Disease Resolve d 1- 00:00: 00 2024-01-05 00:00:00 2024-01-05 10:58:15 [facility] Acute cystitis without hematuria Acute cystitis without hematuria Disease Resolve d 1 00:00: 00 2024-01-05 00:00:00 2024-01-05 10:58:16 [facility] Liveborn infant, of causey , born in hospital by vaginal delivery Liveborn , of causey , born in hospital by vaginal delivery Disease Resolve d 1 00:00: 00 2024-01-05 00:00:00 2024-01-05 10:58:18 [facility] Hemorrhoid s, unspecifie d hemorrhoid type Hemorrhoid s, unspecifie d hemorrhoid type Disease Resolve d 2020-08 2- 00:00: 00 2024-01-05 00:00:00 2024-01-05 10:58:09 [facility] Leg swelling in in third trimester Leg swelling in in third trimester Disease Resolve d 2020-08 2- 00:00: 00 2024-01-05 00:00:00 2024-01-05 10:58:10 [facility] Itching Itching Disease Resolve d 2020-08 2- 00:00: 00 2024-01-05 00:00:00 2024-01-05 10:58:11 [facility] Low back pain during in third trimester Low back pain during in third trimester Disease Resolve d 2020-08 2- 00:00: 00 2024-01-05 00:00:00 2024-01-05 10:58:12 [facility] Cough Cough Disease Resolve d 2020-08 2-29 00:00: 00 2024-01-05 00:00:00 2024-01-05 10:58:13 [facility] History of depression , currently History of depression , currently Disease Resolve d 2020-08 1-23 00:00: 00 2024-01-05 00:00:00 2024-01-05 10:58:08 [facility] Gastroesop hageal reflux disease without esophagiti s Gastroesop hageal reflux disease without esophagiti s Disease Resolve d 0 9-20 00:00: 00 2024-01-05 00:00:00 2024-01-05 10:58:02 [facility] SHANTE (stress urinary incontinen ce, female) SHANTE (stress urinary incontinen ce, female) Disease Resolve d 9-20 00:00: 00 2024-01-05 00:00:00 2024-01-05 10:58:24 [facility] High-risk in third trimester High-risk in third trimester Disease Resolve d 0 6-24 00:00: 00 2024-01-05 00:00:00 2024-01-05 10:58:22 [facility] Low serum vitamin D Low serum vitamin D Disease Resolve d 2020-0 6-24 00:00: 00 2024-01-05 00:00:00 2024-01-05 10:58:20 [facility] Normal labor Normal labor Disease Resolve d 1-09 00:00: 00 2022-04-22 00:00:00 2022-04-22 14:20:40 [facility] Allergies, Adverse Reactions, Alerts Allergy Name Allergy Type Status Severity Reaction(s) Onset Date Inactive Date Treating Clinician Comments Source MORPHINE SULFATE DRUG INGREDI Active Unknown-Cmnt 05-02 00:00: 00 [facility] Morphine Sulfate Drug Allergy Active Unknown - See comments 05-02 00:00: 00 [facility] MORPHINE DRUG INGREDI Active Hives 01-28 00:00: 00 [facility] Morphine Propensi ty to adverse reaction s Active Hives 01-28 00:00: 00 Seizures [facility] Social History Social Habit Start Date Stop Date Quantity Comments Source Gender identity [facility] History of Social function 2024-01-05 00:00:00 2024-01-05 00:00:00 [facility] Alcoholic beverage intake 2024-01-05 00:00:00 2024-01-05 00:00:00 Lifetime non-drinker (finding) [facility] Alcohol intake 2023-05-03 00:00:00 2023-05-03 00:00:00 Lifetime non-drinker (finding) [facility] Exposure to SARS-CoV-2 (event) 2022-11-13 00:00:00 2022-11-23 09:05:00 Not sure [facility] Tobacco use and exposure 2022-03-16 00:00:00 2022-03-16 00:00:00 Smokeless tobacco non-user [facility] Sex assigned at 1985 00:00:00 1985 00:00:00 [facility] Smoking Status Start Date Stop Date Source Never smoked tobacco [facility] Medications Ordered Medication Name Filled Medication Name Start Date Stop Date Current Medication? Ordering Clinician Indication Dosage Frequency Signature (SIG) Comments Components Source KCL (KLOR-CON M20) tablet 40 mEq 02-02 03:30: 00 02-02 02:54 :00 No 40meq 40 mEq, Oral, ONCE, 1 dose, On Mon02/02/24 at 2230, Routine [facility] KCL 20 mEq tablet 02-01 00:00: 00 Yes [id number] 20meq Take 1 tablet by mouth in the morning. [facility] metroNIDAZO LE (FLAGYL) 500 mg tablet 01-07 00:00: 00 Yes [id number] 500mg Take 1 tablet by mouth every 12 (twelve) hours. [facility] semaglutide 0.25 mg or 0.5 mg (2 mg/3 mL) PnIj 01-04 10:25: 49 Yes inject under the skin. [facility] fluconazole 150 mg tablet 01-04 00:00: 00 01-05 04:59 :00 Yes [id number] 150mg Take 1 tablet by mouth once now for 1 dose. [facility] azithromyci n 250 mg tablet 11-15 00:00: 00 Yes [facility] cyclobenzap rine 10 mg tablet 11-15 00:00: 00 Yes 10mg Take 1 tablet by mouth in the morning and 1 tablet at noon and 1 tablet in the evening. [facility] diclofenac 50 mg EC tablet 11-15 00:00: 00 Yes TAKE 1 TABLET BY MOUTH TWICE DAILY NEEDED FOR PAIN [facility] ipratropium 42 mcg (0.06 %) nasal spray 11-15 00:00: 00 Yes USE 2 SPRAYS IN EACH NOSTRIL THREE TIMES DAILY NEEDED FOR RUNNY NOSE [facility] predniSONE 10 mg tablet 11-15 00:00: 00 Yes 10mg Take 1 tablet by mouth in the morning and 1 tablet in the evening. [facility] bromphenira mine-pseudo ephedrine-D M 2-30-10 mg/5 mL syrup 11-15 00:00: 00 02-01 00:00 :00 No TAKE 10 ML BY MOUTH EVERY 4 HOURS NEEDED [facility] fluconazole (DIFLUCAN) 150 mg tablet 05-05 00:00: 00 05-06 04:59 :00 No [id number] 150mg Take 1 tablet by mouth once now for 1 dose. [facility] clonazePAM (KLONOPIN) 0.5 mg tablet 05-02 14:24: 35 Yes 1 tablet at bedtime Orally Once a day [facility] iopamidol (ISOVUE 370-500 mL) injection 70 mL 03-29 00:25: 00 03-29 00:45 :00 No [id number] 70mL 70 mL, Intravenou s, ONCE, 1 dose, On Mon03/28/23 at 1945, Routine [facility] methocarbam oL 750 mg tablet 03-28 00:00: 00 Yes [id number] 750mg Take 1 tablet by mouth 4 (four) times daily. [facility] naproxen 500 mg tablet 03-28 00:00: 00 04-08 04:59 :00 No [id number] 500mg Take 1 tablet by mouth in the morning and 1 tablet in the evening. Take with meals. Do all this for 10 days. [facility] SERTraline (ZOLOFT) 50 mg tablet 01-23 00:00: 00 Yes [id number] 50mg Take 1 tablet by mouth at bedtime. [facility] SERTraline (ZOLOFT) 50 mg tablet 11-21 00:00: 00 01-23 00:00 :00 No [id number] 50mg Take 1 tablet by mouth at bedtime. [facility] busPIRone 10 mg tablet 11-21 00:00: 00 01-06 04:59 :00 No [id number] 10mg Take 1 tablet by mouth 2 (two) times daily as needed for Other (anxiety) for up to 45 days. [facility] clonazePAM 0.5 mg tablet 09-13 16:56: 00 09-13 00:00 :00 No .5mg Take 0.5 mg by mouth as needed. [facility] escitalopra m oxalate (LEXAPRO) 20 mg tablet 09-13 00:00: 00 11-21 00:00 :00 No [id number] 20mg Take 1 tablet by mouth in the morning. [facility] busPIRone 10 mg tablet 2 00:00: 00 10-29 04:59 :00 No [id number] 10mg Take 1 tablet by mouth 2 (two) times daily as needed for Pain (scale 7-10) for up to 45 days. [facility] SERTraline 25 mg tablet 04-22 14:09: 40 04-22 00:00 :00 No 25mg Take 25 mg by mouth daily. [facility] vit calc,iron,f olic ( VITAMIN ORAL) 04-22 14:09: 31 04-22 00:00 :00 No Take by mouth. [facility] ferrous sulfate (IRON ORAL) 04-22 14:09: 09 04-22 00:00 :00 No Take by mouth. [facility] clonazePAM 0.5 mg tablet 504 22:29: 55 Yes .5mg Take 0.5 mg by mouth as needed. [facility] acetaminoph en-caff-but albital (ESGIC) per capsule 08-18 00:00: 00 04-22 00:00 :00 No [id number] 1{capsu le} Take 1 capsule by mouth every 4 (four) hours as needed (headache) . [facility] cyclobenzap rine 10 mg tablet 08-18 00:00: 00 04-22 00:00 :00 No [id number] 10mg Take 1 tablet by mouth 3 (three) times daily. [facility] vitamin w/FA tablet 08-16 00:00: 00 04-22 00:00 :00 No [id number] 102 1{tbl} Take 1 tablet by mouth daily. [facility] docusate calcium 240 mg capsule - 00:00: 00 04-22 00:00 :00 No [id number] 102 240mg Take 1 capsule by mouth once daily as needed for Constipati on. [facility] ferrous sulfate 325 mg (65 mg iron) tablet 08-16 00:00: 00 04-22 00:00 :00 No [id number] 102 325mg Take 1 tablet by mouth 2 (two) times daily. [facility] ibuprofen 600 mg tablet 1-10 00:00: 00 04-22 00:00 :00 No [id number] 102 600mg Take 1 tablet by mouth every 6 (six) hours as needed (Pain). Take with food or milk. [facility] vitamin w/FA tablet 1-10 00:00: 00 04-22 00:00 :00 No [id number] 102 1{tbl} Take 1 tablet by mouth daily. [facility] metoclopram frank HCl 10 mg tablet 2020-08 2-07 00:00: 00 08-24 00:00 :00 No [id number] 10mg Take 1 tablet by mouth every 6 (six) hours as needed for Nausea and Vomiting (N/V) or Gastroesop hageal reflux. [facility] omeprazole 40 mg capsule 2020-08 0-14 00:00: 00 04-22 00:00 :00 No [id number] 40mg Take 1 capsule by mouth daily. [facility] famotidine 20 mg tablet 9-20 00:00: 00 04-22 00:00 :00 No [id number] 20mg Take 1 tablet by mouth 2 (two) times daily. [facility] Immunizations Ordered Immunization Name Filled Immunization Name Date Status Comments Source Rho (d) Immune Globulin 2021-08-16 00:00:00 Completed [facility] Rho (d) Immune Globulin 2021-08-16 00:00:00 Completed [facility] Rho (d) Immune Globulin 2021-08-16 00:00:00 Completed [facility] Rho (d) Immune Globulin 2021-08-16 00:00:00 Completed [facility] Rho (d) Immune Globulin 2021-08-16 00:00:00 Completed [facility] Rho (d) Immune Globulin 2021-08-16 00:00:00 Completed [facility] Rho (d) Immune Globulin 2021-08-16 00:00:00 Completed [facility] Rho (d) Immune Globulin 2021-08-16 00:00:00 Completed [facility] Rho (d) Immune Globulin 2021-08-16 00:00:00 Completed [facility] Rho (d) Immune Globulin 2021-08-16 00:00:00 Completed [facility] Rho (d) Immune Globulin 2021-08-16 00:00:00 Completed [facility] Rho (d) Immune Globulin 2021-08-16 00:00:00 Completed [facility] Rho (d) Immune Globulin 2021-08-16 00:00:00 Completed [facility] Rho (d) Immune Globulin 2021-08-16 00:00:00 Completed [facility] Rho (d) Immune Globulin 2021-08-16 00:00:00 Completed [facility] Rho (d) Immune Globulin 2021-08-16 00:00:00 Completed [facility] Rho (d) Immune Globulin 2021-08-16 00:00:00 Completed [facility] Rho (d) Immune Globulin 2021-08-16 00:00:00 Completed [facility] Rho (d) Immune Globulin 2021-08-16 00:00:00 Completed [facility] Rho (d) Immune Globulin 2021-08-16 00:00:00 Completed [facility] Rho (d) Immune Globulin 2021-08-16 00:00:00 Completed [facility] Rho (d) Immune Globulin 2021-08-16 00:00:00 Completed [facility] Rho (d) Immune Globulin 2021-08-16 00:00:00 Completed [facility] Rho (d) Immune Globulin 2021-08-16 00:00:00 Completed [facility] Rho (d) Immune Globulin 2021-08-16 00:00:00 Completed [facility] Rho (d) Immune Globulin 2021-08-16 00:00:00 Completed [facility] Rho (d) Immune Globulin 2021-08-16 00:00:00 Completed [facility] Rho (d) Immune Globulin 2021-08-16 00:00:00 Completed [facility] Rho (d) Immune Globulin 2021-08-16 00:00:00 Completed [facility] Rho (d) Immune Globulin 2021-08-16 00:00:00 Completed [facility] TDAP 2021-06-29 00:00:00 Completed [facility] TDAP 2021-06-29 00:00:00 Completed [facility] TDAP 2021-06-29 00:00:00 Completed [facility] TDAP 2021-06-29 00:00:00 Completed [facility] TDAP 2021-06-29 00:00:00 Completed [facility] TDAP 2021-06-29 00:00:00 Completed [facility] TDAP 2021-06-29 00:00:00 Completed [facility] TDAP 2021-06-29 00:00:00 Completed [facility] TDAP 2021-06-29 00:00:00 Completed [facility] TDAP 2021-06-29 00:00:00 Completed [facility] TDAP 2021-06-29 00:00:00 Completed [facility] TDAP 2021-06-29 00:00:00 Completed [facility] TDAP 2021-06-29 00:00:00 Completed [facility] TDAP 2021-06-29 00:00:00 Completed [facility] TDAP 2021-06-29 00:00:00 Completed [facility] TDAP 2021-06-29 00:00:00 Completed [facility] [place] TDAP 2021-06-29 00:00:00 Completed [facility] TDAP 2021-06-29 00:00:00 Completed [facility] TDAP 2021-06-29 00:00:00 Completed [facility] TDAP 2021-06-29 00:00:00 Completed [facility] TDAP 2021-06-29 00:00:00 Completed [facility] TDAP 2021-06-29 00:00:00 Completed [facility] TDAP 2021-06-29 00:00:00 Completed [facility] TDAP 2021-06-29 00:00:00 Completed [facility] TDAP 2021-06-29 00:00:00 Completed [facility] TDAP 2021-06-29 00:00:00 Completed [facility] TDAP 2021-06-29 00:00:00 Completed [facility] TDAP 2021-06-29 00:00:00 Completed [facility] TDAP 2021-06-29 00:00:00 Completed [facility] TDAP 2021-06-29 00:00:00 Completed [facility] Rho (d) Immune Globulin 2021-06-08 00:00:00 Completed [facility] Rho (d) Immune Globulin 2021-06-08 00:00:00 Completed [facility] Rho (d) Immune Globulin 2021-06-08 00:00:00 Completed [facility] Rho (d) Immune Globulin 2021-06-08 00:00:00 Completed [facility] Rho (d) Immune Globulin 2021-06-08 00:00:00 Completed [facility] Rho (d) Immune Globulin 2021-06-08 00:00:00 Completed [facility] Rho (d) Immune Globulin 2021-06-08 00:00:00 Completed [facility] Rho (d) Immune Globulin 2021-06-08 00:00:00 Completed [facility] Rho (d) Immune Globulin 2021-06-08 00:00:00 Completed [facility] Rho (d) Immune Globulin 2021-06-08 00:00:00 Completed [facility] Rho (d) Immune Globulin 2021-06-08 00:00:00 Completed [facility] Rho (d) Immune Globulin 2021-06-08 00:00:00 Completed [facility] Rho (d) Immune Globulin 2021-06-08 00:00:00 Completed [facility] Rho (d) Immune Globulin 2021-06-08 00:00:00 Completed [facility] Rho (d) Immune Globulin 2021-06-08 00:00:00 Completed [facility] Rho (d) Immune Globulin 2021-06-08 00:00:00 Completed [facility] Rho (d) Immune Globulin 2021-06-08 00:00:00 Completed [facility] Rho (d) Immune Globulin 2021-06-08 00:00:00 Completed [facility] Rho (d) Immune Globulin 2021-06-08 00:00:00 Completed [facility] Rho (d) Immune Globulin 2021-06-08 00:00:00 Completed [facility] Rho (d) Immune Globulin 2021-06-08 00:00:00 Completed [facility] Rho (d) Immune Globulin 2021-06-08 00:00:00 Completed [facility] Rho (d) Immune Globulin 2021-06-08 00:00:00 Completed [facility] Rho (d) Immune Globulin 2021-06-08 00:00:00 Completed [facility] Rho (d) Immune Globulin 2021-06-08 00:00:00 Completed [facility] Rho (d) Immune Globulin 2021-06-08 00:00:00 Completed [facility] Rho (d) Immune Globulin 2021-06-08 00:00:00 Completed [facility] Rho (d) Immune Globulin 2021-06-08 00:00:00 Completed [facility] Rho (d) Immune Globulin 2021-06-08 00:00:00 Completed [facility] Rho (d) Immune Globulin 2021-06-08 00:00:00 Completed [facility] Rho (d) Immune Globulin Unknown Completed [facility] TDAP Unknown Completed [facility] Rho (d) Immune Globulin Unknown Completed [facility] Rho (d) Immune Globulin Unknown Completed [facility] TDAP Unknown Completed [facility] Rho (d) Immune Globulin Unknown Completed [facility] Rho (d) Immune Globulin Unknown Completed [facility] TDAP Unknown Completed [facility] Rho (d) Immune Globulin Unknown Completed [facility] Rho (d) Immune Globulin Unknown Completed [facility] TDAP Unknown Completed [facility] Rho (d) Immune Globulin Unknown Completed [facility] Rho (d) Immune Globulin Unknown Completed [facility] TDAP Unknown Completed [facility] Rho (d) Immune Globulin Unknown Completed [facility] Rho (d) Immune Globulin Unknown Completed [facility] TDAP Unknown Completed [facility] Rho (d) Immune Globulin Unknown Completed [facility] Rho (d) Immune Globulin Unknown Completed [facility] TDAP Unknown Completed [facility] Rho (d) Immune Globulin Unknown Completed [facility] Rho (d) Immune Globulin Unknown Completed [facility] TDAP Unknown Completed [facility] Rho (d) Immune Globulin Unknown Completed [facility] Rho (d) Immune Globulin Unknown Completed [facility] TDAP Unknown Completed [facility] Rho (d) Immune Globulin Unknown Completed [facility] Rho (d) Immune Globulin Unknown Completed [facility] TDAP Unknown Completed [facility] Rho (d) Immune Globulin Unknown Completed [facility] Rho (d) Immune Globulin Unknown Completed [facility] TDAP Unknown Completed [facility] Rho (d) Immune Globulin Unknown Completed [facility] Rho (d) Immune Globulin Unknown Completed [facility] TDAP Unknown Completed [facility] Rho (d) Immune Globulin Unknown Completed [facility] Rho (d) Immune Globulin Unknown Completed [facility] TDAP Unknown Completed [facility] Rho (d) Immune Globulin Unknown Completed [facility] Rho (d) Immune Globulin Unknown Completed [facility] TDAP Unknown Completed [facility] Rho (d) Immune Globulin Unknown Completed [facility] TDAP Unknown Completed [facility] Rho (d) Immune Globulin Unknown Completed [facility] TDAP Unknown Completed [facility] Rho (d) Immune Globulin Unknown Completed [facility] TDAP Unknown Completed [facility] Rho (d) Immune Globulin Unknown Completed [facility] TDAP Unknown Completed [facility] Rho (d) Immune Globulin Unknown Completed [facility] Rho (d) Immune Globulin Unknown Completed [facility] TDAP Unknown Completed [facility] Rho (d) Immune Globulin Unknown Completed [facility] Rho (d) Immune Globulin Unknown Completed [facility] TDAP Unknown Completed [facility] Rho (d) Immune Globulin Unknown Completed [facility] Rho (d) Immune Globulin Unknown Completed [facility] TDAP Unknown Completed [facility] Rho (d) Immune Globulin Unknown Completed [facility] Rho (d) Immune Globulin Unknown Completed [facility] TDAP Unknown Completed [facility] Rho (d) Immune Globulin Unknown Completed [facility] Rho (d) Immune Globulin Unknown Completed [facility] TDAP Unknown Completed [facility] Rho (d) Immune Globulin Unknown Completed [facility] Rho (d) Immune Globulin Unknown Completed [facility] TDAP Unknown Completed [facility] Rho (d) Immune Globulin Unknown Completed [facility] Rho (d) Immune Globulin Unknown Completed [facility] TDAP Unknown Completed [facility] Rho (d) Immune Globulin Unknown Completed [facility] Vital Signs Vital Name Observation Time Observation Value Comments S ource Systolic blood pressure 2024-02-03 01:45:00 121 mm[Hg] [facility] Diastolic blood pressure 2024-02-03 01:45:00 93 mm[Hg] [facility] Heart rate 2024-02-03 01:45:00 101 /min [facility] Respiratory rate 2024-02-03 01:45:00 15 /min [facility] Oxygen saturation in Arterial blood by Pulse oximetry 2024-02-03 01:45:00 100 /min [facility] Body temperature 2024-02-03 00:46:00 37.11 Margie [facility] Body height 2024-02-03 00:46:00 160 cm [facility] Body weight 2024-02-03 00:46:00 105.189 kg [facility] BMI 2024-02-03 00:46:00 41.08 kg/m2 [facility] Systolic blood pressure 2024-01-05 15:20:00 116 mm[Hg] [facility] Diastolic blood pressure 2024-01-05 15:20:00 75 mm[Hg] [facility] Heart rate 2024-01-05 15:20:00 87 /min [facility] Body temperature 2024-01-05 15:20:00 37.06 Margie [facility] Respiratory rate 2024-01-05 15:20:00 18 /min [facility] Body height 2024-01-05 15:20:00 160 cm [facility] Body weight 2024-01-05 15:20:00 104.044 kg [facility] BMI 2024-01-05 15:20:00 40.63 kg/m2 [facility] Systolic blood pressure 2023-05-03 20:49:00 116 mm[Hg] [facility] Diastolic blood pressure 2023-05-03 20:49:00 76 mm[Hg] [facility] Heart rate 2023-05-03 20:49:00 81 /min [facility] Body temperature 2023-05-03 20:49:00 36.56 Margie [facility] Body height 2023-05-03 20:49:00 160 cm [facility] Body weight 2023-05-03 20:49:00 99.655 kg [facility] BMI 2023-05-03 20:49:00 38.92 kg/m2 [facility] Oxygen saturation in Arterial blood by Pulse oximetry 2023-05-03 20:49:00 98 /min [facility] Systolic blood pressure 2023-05-02 19:23:00 116 mm[Hg] [facility] Diastolic blood pressure 2023-05-02 19:23:00 76 mm[Hg] [facility] Heart rate 2023-05-02 19:23:00 81 /min [facility] Body temperature 2023-05-02 19:23:00 37 Margie [facility] Respiratory rate 2023-05-02 19:23:00 16 /min [facility] Body height 2023-05-02 19:23:00 160 cm [facility] Body weight 2023-05-02 19:23:00 99.565 kg [facility] BMI 2023-05-02 19:23:00 38.88 kg/m2 [facility] Oxygen saturation in Arterial blood by Pulse oximetry 2023-05-02 19:23:00 96 /min [facility] Systolic blood pressure 2023-03-30 18:20:00 105 mm[Hg] [facility] Diastolic blood pressure 2023-03-30 18:20:00 72 mm[Hg] [facility] Heart rate 2023-03-30 18:20:00 75 /min [facility] Body temperature 2023-03-30 18:20:00 37 Margie [facility] Body height 2023-03-30 18:20:00 160 cm [facility] Body weight 2023-03-30 18:20:00 99.791 kg [facility] BMI 2023-03-30 18:20:00 38.97 kg/m2 [facility] Oxygen saturation in Arterial blood by Pulse oximetry 2023-03-30 18:20:00 100 /min [facility] Systolic blood pressure 2023-03-28 21:15:00 145 mm[Hg] [facility] Diastolic blood pressure 2023-03-28 21:15:00 87 mm[Hg] [facility] Heart rate 2023-03-28 21:15:00 88 /min [facility] Body temperature 2023-03-28 21:15:00 37.11 Margie [facility] Respiratory rate 2023-03-28 21:15:00 18 /min [facility] Body height 2023-03-28 21:15:00 160 cm [facility] Body weight 2023-03-28 21:15:00 99.791 kg [facility] BMI 2023-03-28 21:15:00 38.97 kg/m2 [facility] Oxygen saturation in Arterial blood by Pulse oximetry 2023-03-28 21:15:00 100 /min [facility] Systolic blood pressure 2022-11-23 14:13:00 119 mm[Hg] [facility] Diastolic blood pressure 2022-11-23 14:13:00 80 mm[Hg] [facility] Heart rate 2022-11-23 14:13:00 84 /min [facility] Respiratory rate 2022-11-23 14:13:00 19 /min [facility] Body height 2022-11-23 14:13:00 160 cm [facility] Body weight 2022-11-23 14:13:00 100.744 kg [facility] BMI 2022-11-23 14:13:00 39.34 kg/m2 [facility] Oxygen saturation in Arterial blood by Pulse oximetry 2022-11-23 14:13:00 99 /min [facility] Systolic blood pressure 2022-11-21 20:08:00 129 mm[Hg] [facility] Diastolic blood pressure 2022-11-21 20:08:00 78 mm[Hg] [facility] Heart rate 2022-11-21 20:08:00 95 /min [facility] Body height 2022-11-21 20:08:00 160 cm [facility] Body weight 2022-11-21 20:08:00 99.791 kg [facility] BMI 2022-11-21 20:08:00 38.97 kg/m2 [facility] Oxygen saturation in Arterial blood by Pulse oximetry 2022-11-21 20:08:00 100 /min [facility] Systolic blood pressure 2022-04-22 18:24:00 130 mm[Hg] [facility] Diastolic blood pressure 2022-04-22 18:24:00 79 mm[Hg] [facility] Heart rate 2022-04-22 18:24:00 80 /min [facility] Body temperature 2022-04-22 18:24:00 36.94 Margie [facility] Respiratory rate 2022-04-22 18:24:00 18 /min [facility] Body height 2022-04-22 18:24:00 160 cm [facility] Body weight 2022-04-22 18:24:00 109.045 kg [facility] BMI 2022-04-22 18:24:00 42.58 kg/m2 [facility] Procedures Procedure Date / Time Performed Performing Clinician Source DUPLEX VENOUS LEG LEFT - BY VASCULAR LAB 2024-02-03 02:45:33 Radha Lazcano [facility] D-DIMER 2024-02-03 01:36:00 Radha Lazcano [facility] XR CHEST 1 VW 2024-02-03 01:05:28 [facility] 2024-02-03 00:52:00 Yarima, [place] [facility] MAGNESIUM 2024-02-03 00:52:00 [facility] 2024-02-03 00:52:00 Radha Lazcano [facility] THYROID STIMULATING HORMONE 2024-02-03 00:52:00 Radha Lazcano [facility] COMP. METABOLIC PANEL (46941) 2024-02-03 00:52:00 Radha Lazcano [facility] CBC WITH DIFF 2024-02-03 00:52:00 Radha Lazcano [facility] POCT URINALYSIS W/O SPECIFIC GRAVITY 2024-01-05 00:00:00 Oneil Amor [facility] THYROID STIMULATING HORMONE 2023-03-30 19:29:00 Mirlande Rubio [facility] VITAMIN D, 25-OH 2023-03-30 19:29:00 Mirlande Rubio [facility] CBC WITH DIFF 2023-03-28 23:44:00 Kaycee Daina [facility] LIPASE 2023-03-28 22:50:00 [facility] TROPONIN I 2023-03-28 22:50:00 [facility] COMP. METABOLIC PANEL (53350) 2023-03-28 22:50:00 Kaycee Diana [facility] D-DIMER 2023-03-28 22:50:00 Kaycee Diana [facility] POCT TEST 2023-03-28 21:47:00 Sam Diana [facility] URINALYSIS 2023-03-28 21:45:00 [facility] URINE DRUG (IMMUNOASSAY) - COMPREHENSIVE DRUG SCREEN W/O REFLEX 2023-03-28 21:45:00 Kaycee Diana [facility] CONSENT/REFUSAL FOR DIAGNOSIS AND TREATMENT 2023-03-28 21:07:30 Doctor Unassigned, [place] [facility] INSURANCE CORRESPONDENCE 2022-12-01 05:01:00 Doc tor Unassigned, [place] [facility] SEDIMENTATION RATE 2022-11-21 22:34:00 Eleazar Puga [facility] PATIENT FINANCIAL POLICY 2022-11-21 19:42:12 Doctor Unassigned, [place] [facility] HB ECG ROUTINE & RHYTHM STRIP 2022-11-21 19:32:45 Eleazar Puga [facility] Encounters Start Date/Time End Date/Time Encounter Type Admission Type Attending Clinicians Care Facility Care Department Encounter ID Source 2021-08-04 16:31:24 Outpatient P [facility] [id number] [facility] 2025-01-10 13:30:00 2025-01-10 13:30:00 Outpatient ONEIL WOMACK [facility] [id number] [facility] 2024-05-06 15:00:00 2024-05-06 15:00:00 Outpatient R ELIEL GUTIERREZ CHERYAL [facility] [id number] [facility] 2024-02-26 14:30:00 2024-02-26 14:30:00 Outpatient R LIONEL KHOURY ELISHA [facility] [id number] [facility] 2024-02-02 19:43:00 2024-02-02 22:47:00 Emergency X RADHA LAZCANO WAKILI [facility] ERT [id number] [facility] 2024-02-02 19:43:00 2024-02-02 22:47:00 Emergency Radha Lazcano [facility] 1.2.840.114 350.1.13.10 4.2.7.2.686 [id number] [facility] 2024-01-08 00:00:00 2024-01-08 21:04:12 Oneil Bright [facility] 1.2.840.114 350.1.13.10 4.2.7.2.686 [id number] [facility] 2024-01-05 10:00:00 2024-01-05 10:56:11 Outpatient R ONEIL AMOR [facility] [id number] [facility] 2024-01-05 10:00:00 2024-01-05 10:56:11 Office Visit Oneil Amor [facility] 1..840.114 350.1.13.10 4.2.7.2.686 [id number] [facility] 2023-06-21 13:40:00 2023-06-21 13:40:00 [facility] [id number] [facility] 2023-05-25 15:20:00 2023-05-25 15:20:00 [facility] [id number] [facility] 2023-05-23 00:00:00 2023-05-23 00:00:00 Telephone Mirlande Rubio [facility] OFF[facility] 1..840.114 350.1.13.10 4.2.7.2.686 [id number] [facility] 2023-05-23 00:00:00 2023-05-23 00:00:00 Telephone Eleazar Puga [facility] 1..840.114 350.1.13.10 4.2.7.2.686 [id number] [facility] 2023-05-12 00:00:00 2023-05-12 00:00:00 Outpatient R ELIEL GUTIERREZ CHERYAL [facility] [id number] [facility] 2023-05-05 00:00:00 2023-05-05 00:00:00 Telephone Alanna Patel [facility] 1..840.114 350.1.13.10 4.2.7.2.686 [id number] [facility] 2023-05-03 16:00:00 2023-05-03 16:30:00 Office Visit Mirlande Rubio [facility] 1.840.114 350.1.13.10 4.2.7.2.686 [id number] [facility] 2023-05-03 16:00:00 2023-05-03 16:00:00 Outpatient R MIRLANDE RUBIO [facility] [id number] [facility] 2023-05-02 14:30:00 2023-05-02 15:00:57 Outpatient R ELIEL GUTIERREZ CHERYAL [facility] [id number] [facility] 2023-05-02 14:30:00 2023-05-02 15:00:57 Office Visit Eliel Gutierrez [facility] 1.840.114 350.1.13.10 4.2.7.2.686 [id number] [facility] 2023-05-01 15:00:00 2023-05-01 15:00:00 Outpatient R ELIEL GUTIERREZ CHERYAL [facility] [id number] [facility] 2023-04-24 15:30:00 2023-04-24 15:30:00 Outpatient R ELIEL GUTIERREZ CHERYAL [facility] [id number] [facility] 2023-04-13 00:00:00 2023-04-13 00:00:00 Patient Secure Msg Doctor Unassigned, [place] [facility] 1.840.114 350.1.13.10 4.2.7.2.686 [id number] [facility] 2023-04-05 16:00:00 2023-04-05 16:00:00 Outpatient RICCO CHAPPELL RUTH [facility] [id number] [facility] 2023-04-04 14:30:00 2023-04-04 14:30:00 Outpatient R RASArielFLORENCE TRIMBLE [facility] [id number] [facility] 2023-04-03 00:00:00 2023-04-03 00:00:00 Patient Secure Msg Doctor Unassigned, [place] [facility] 1.2840.114 350.1.13.10 4.2.7.2.686 [id number] [facility] 2023-04-01 00:00:00 2023-04-01 00:00:00 Patient Secure Msg Doctor Unassigned, [place] [facility] 1.2.840.114 350.1.13.10 4.2.7.2.686 [id number] [facility] 2023-03-30 14:30:00 2023-03-30 14:31:11 Leather Stitcher Visit Lab, Ang - [facility] 1.2.840.114 350.1.13.10 4.2.7.2.686 [id number] [facility] 2023-03-30 13:00:00 2023-03-30 14:22:43 Outpatient R MIRLANDE RUBIO [facility] [id number] [facility] 2023-03-30 13:00:00 2023-03-30 14:22:43 Office Visit Ita [facility] 1.2.840.114 350.1.13.10 4.2.7.2.686 [id number] [facility] 2023-03-28 16:16:00 2023-03-28 20:07:00 Emergency X KAYCEE DIANA [facility] ERT [id number] [facility] 2023-03-28 16:16:00 2023-03-28 20:07:00 Emergency Kaycee Diana [facility] 1.2.840.114 350.1.13.10 4.2.7.2.686 [id number] [facility] 2023-03-28 08:30:00 2023-03-28 08:30:00 [id number] 2023-01-23 00:00:00 2023-01-23 00:00:00 Refill Vivien [facility] 1.2.840.114 350.1.13.10 4.2.7.2.686 [id number] [facility] 2022-12-28 16:00:00 2022-12-28 16:00:00 [facility] [id number] [facility] 2022-12-26 00:00:00 2022-12-26 00:00:00 Patient Secure Msg Zain [facility] BUILDING 1.2.840.114 350.1.13.10 4.2.7.2.686 [id number] [facility] 2022-12-23 00:00:00 2022-12-23 00:00:00 Telephone Zain [facility] NAL BUILDING 1.2.840.114 350.1.13.10 4.2.7.2.686 [id number] [facility] 2022-12-23 00:00:00 2022-12-23 00:00:00 Telephone Zain [facility] NAL BUILDING 1.2.840.114 350.1.13.10 4.2.7.2.686 [id number] [facility] 2022-12-22 00:00:00 2022-12-22 00:00:00 Patient Secure Msg Doctor Unassigned, [place] [facility] 1..840.114 350.1.13.10 4.2.7.2.686 [id number] [facility] 2022-12-20 14:00:00 2022-12-20 14:15:00 Leather Stitcher Visit [facility] Esperanza Franz [facility] 1.2.840.114 350.1.13.10 4.2.7.2.686 [id number] [facility] 2022-12-20 14:00:00 2022-12-20 14:00:00 Outpatient R ESPERANZA FRANZ STRAKSPhong [facility] [id number] [facility] 2022-12-14 00:00:00 2022-12-14 00:00:00 [facility] [id number] [facility] 2022-12-13 16:00:00 2022-12-13 16:00:00 Outpatient R ZAIN [facility] [id number] [facility] 2022-12-08 15:30:00 2022-12-08 15:30:00 Outpatient R ZAIN [facility] [id number] [facility] 2022-12-08 00:00:00 2022-12-08 00:00:00 [facility] 1..840.114 350.1.13.10 4.2.7.2.686 [id number] [facility] 2022-12-07 00:00:00 2022-12-07 00:00:00 Outpatient R ZAIN [facility] [id number] [facility] 2022-12-01 00:00:00 2022-12-01 00:00:00 Orders Only Doctor Unassigned, [place] [facility] 1.20.114 350.1.13.10 4.2.7.2.686 [id number] [facility] 2022-11-24 00:00:00 2022-11-24 00:00:00 Patient Secure Msg Doctor Unassigned, [place] [facility] 1.2840.114 350.1.13.10 4.2.7.2.686 [id number] [facility] 2022-11-23 09:00:00 2022-11-23 09:37:32 Outpatient R ZAIN [facility] [id number] [facility] 2022-11-23 09:00:00 2022-11-23 09:37:32 [facility] 1.840.114 350.1.13.10 4.2.7.2.686 [id number] [facility] 2022-11-23 00:00:00 2022-11-23 00:00:00 [facility] 1.20.114 350.1.13.10 4.2.7.2.686 [id number] [facility] 2022-11-22 00:00:00 2022-11-22 00:00:00 Patient Secure Msg [facility] 1.20.114 350.1.13.10 4.2.7.2.686 [id number] [facility] 2022-11-21 17:00:00 2022-11-21 17:00:47 Leather Stitcher Visit Lab, Dale Puga [facility] JESSICA?[facility] 1.2840.114 350.1.13.10 4.2.7.2.686 [id number] [facility] 2022-11-21 15:00:00 2022-11-21 16:31:18 Outpatient R LE PUGATHIA [facility] [id number] [facility] 2022-11-21 15:00:00 2022-11-21 16:31:18 [facility] 1.2.840.114 350.1.13.10 4.2.7.2.686 [id number] [facility] 2022-11-21 00:00:00 2022-11-21 00:00:00 Orders Only Doctor Unassigned, [place] [facility] 1..840.114 350.1.13.10 4.2.7.2.686 [id number] [facility] 2022-11-21 00:00:00 2022-11-21 00:00:00 [facility] 1..840.114 350.1.13.10 4.2.7.2.686 [id number] [facility] 2022-11-11 16:00:00 2022-11-11 16:00:00 Outpatient R MIRLANDE RUBIO [facility] [id number] [facility] 2022-11-10 00:00:00 2022-11-10 00:00:00 Patient Secure Msg [facility] 1..840.114 350.1.13.10 4.2.7.2.686 [id number] [facility] 2022-10-25 13:00:00 2022-10-25 13:00:00 Outpatient R LENASHAWANDA ELEAZAR [facility] [id number] [facility] 2022-10-14 11:45:00 2022-10-14 12:00:00 Leather Stitcher Visit Lab, Ang - Db Vivien [facility] 1.2.840.114 350.1.13.10 4.2.7.2.686 [id number] [facility] 2022-10-14 11:45:00 2022-10-14 11:45:00 Outpatient R ELEAZAR PUGA [facility] [id number] [facility] 2022-10-12 00:00:00 2022-10-12 00:00:00 Patient Secure Mskathy [facility] 1.2.840.114 350.1.13.10 4.2.7.2.686 [id number] [facility] 2022-10-11 16:00:00 2022-10-11 16:00:00 Outpatient R ELEAZAR PUGA [facility] [id number] [facility] 2022-09-13 16:30:00 2022-09-13 17:19:53 Outpatient R ELEAZAR PUGA [facility] [id number] [facility] 2022-09-13 16:30:00 2022-09-13 17:19:53 [facility] 1.2.840.114 350.1.13.10 4.2.7.2.686 [id number] [facility] 2022-08-30 15:00:00 2022-08-30 15:00:00 Outpatient R VIVIEN ELEAZAR [facility] [id number] [facility] 2022-05-13 13:30:00 2022-05-13 13:30:00 Outpatient R LIONEL KHOURY [facility] [id number] [facility] 2022-04-22 13:00:00 2022-04-22 14:07:49 Outpatient R SAMSON WALKRE [facility] [id number] [facility] 2022-04-22 13:00:00 2022-04-22 14:07:49 Office Visit Samson Walker [facility] 1..840.114 350.1.13.10 4.2.7.2.686 [id number] [facility] 2022-04-22 13:00:00 2022-04-22 14:07:49 Outpatient R SAMSON WALKER [facility] [id number] [facility] 2022-03-18 00:00:00 2022-03-18 00:00:00 Patient Secure Msg Krishna [facility] 1..840.114 350.1.13.10 4.2.7.2.686 [id number] [facility] 2022-03-16 15:00:00 2022-03-16 23:59:00 Outpatient R ZAIN [facility] [id number] [facility] 2022-03-16 15:00:00 2022-03-16 15:00:00 Outpatient R ZAIN [facility] [id number] [facility] 2022-03-15 11:15:00 2022-03-15 11:30:00 Laboratory Only Only, Adc Test Zain [facility] 1.840.114 350.1.13.10 4.2.7.2.686 [id number] [facility] 2022-03-15 11:15:00 2022-03-15 11:15:00 Outpatient R ZAIN [facility] [id number] [facility] 2022-02-22 00:00:00 2022-02-22 00:00:00 Telephone Izabela Syed [facility] 1.840.114 350.1.13.10 4.2.7.2.686 [id number] [facility] 2022-02-22 00:00:00 2022-02-22 00:00:00 Telephone Kunal Izabela [facility] 1.2840.114 350.1.13.10 4.2.7.2.686 [id number] [facility] 2022-02-22 00:00:00 2022-02-22 00:00:00 [facility] 1.2840.114 350.1.13.10 4.2.7.2.686 [id number] [facility] 2022-02-22 00:00:00 2022-02-22 00:00:00 Telephone Zain [facility] BUILDING 1.2840.114 350.1.13.10 4.2.7.2.686 [id number] [facility] 2022-02-14 16:00:00 2022-02-14 23:59:00 Outpatient R ZAIN [facility] [id number] [facility] 2022-02-14 16:00:00 2022-02-14 23:59:00 [facility] [id number] [facility] 2022-02-10 00:00:00 2022-02-10 00:00:00 Telephone Zain [facility] BUILDING [id number] [id number] [id number] [id number] [facility] 2021-12-08 00:00:00 2021-12-08 00:00:00 [facility] [id number] 350.1.13.10 [id number] [id number] [facility] 2021-12-07 00:00:00 2021-12-07 00:00:00 [facility] [id number] 350.1.13.10 [id number] [id number] [facility] 2021-12-03 00:00:00 2021-12-03 00:00:00 [facility] [id number] [id number] [id number] [id number] [facility] 2021-12-02 10:46:04 2021-12-02 11:13:00 [facility] [id number] [facility] 2021-12-02 11:00:00 2021-12-02 11:00:00 [facility] [id number] [facility] 2021-12-01 08:00:00 2021-12-01 08:35:02 [facility] [id number] 350.1.13.10 [id number] [id number] [facility] 2021-12-01 08:00:00 2021-12-01 08:35:02 [facility] [facility] [id number] [facility] 2021-12-01 08:00:00 2021-12-01 08:35:02 Office Visit [facility] BUILDING 1.2.840.114 350.1.13.10 4.2.7.2.686 [id number] [id number] [facility] 2021-12-01 08:00:00 2021-12-01 08:35:02 Outpatient R MARY KRISHNA [facility] [id number] [facility] 2021-12-01 08:00:00 2021-12-01 08:35:02 Outpatient R MARY KRISHNA [facility] [id number] [facility] 2021-11-22 00:00:00 2021-11-22 00:00:00 Orders Only Doctor Unassigned, [place] [facility] 1..840.114 350.1.13.10 4.2.7.2.686 [id number] [id number] [facility] 2021-09-16 13:30:00 2021-09-16 13:30:00 Outpatient R VIVIEN ELEAZAR [facility] [id number] [facility] 2021-08-24 09:00:00 2021-08-24 10:19:36 Office Visit Eleazar Puga [facility] 1..840.114 350.1.13.10 4.2.7.2.686 [id number] [facility] 2021-08-24 09:00:00 2021-08-24 10:19:36 Outpatient R ELEAZAR PUGA [facility] [id number] [facility] 2021-08-24 09:00:00 2021-08-24 09:00:00 Outpatient R ELEAZAR PUGA [facility] [id number] [facility] 2021-08-18 13:15:00 2021-08-18 14:56:02 Outpatient R MOUSTAPHA MAGANA [facility] [id number] [facility] 2021-08-18 13:15:00 2021-08-18 14:56:02 [facility] 1..840.114 350.1.13.10 4.2.7.2.686 [id number] 134 [id number] [facility] 2021-08-16 22:40:00 2021-08-16 22:41:00 Emergency X CHRISTOPHE SÁNCHEZ [facility] ERT [id number] [facility] 2021-08-16 22:40:00 2021-08-16 22:41:00 Emergency Christophe Sánchez B [facility] 1.2840.114 350.1.13.10 4.2.7.2.686 [id number] 084 [id number] [facility] 2021-08-16 21:21:00 2021-08-16 22:11:00 Outpatient X MOUSTAPHA MAGANA [facility] PADDY [id number] [facility] 2021-08-16 21:21:00 2021-08-16 22:11:00 Emergency Moustapha Magana [facility] 1.2840.114 350.1.13.10 4.2.7.2.686 [id number] [facility] 2021-08-14 19:15:00 2021-08-16 15:05:00 Inpatient X MOUSTAPHA MAGANA [facility] [id number] [facility] 2021-08-14 19:15:00 2021-08-16 15:05:00 Hospital Encounter Moustapha Magana [facility] 1.2840.114 350.1.13.10 4.2.7.2.686 [id number] [id number] [facility] 2021-08-16 09:00:00 2021-08-16 09:00:00 Outpatient R [facility] [id number] [facility] 2021-08-15 07:25:00 2021-08-15 13:02:00 Anesthesia Event Edgar Dotson [facility] 1.2.840.114 350.1.13.10 4.2.7.2.686 [id number] 083 [id number] [facility] 2021-08-14 00:00:00 2021-08-14 00:00:00 Nurse Triage TrayYesenia [facility] 1.2840.114 350.1.13.10 4.2.7.2.686 [id number] [id number] [facility] 2021-08-12 09:00:00 2021-08-12 10:07:36 [id number] 2021-08-12 09:00:00 2021-08-12 10:07:36 Routine Visit Room[facility] Izzy [facility] 1.2.840.114 350.1.13.10 4.2.7.2.686 [id number] 134 [id number] [facility] 2021-08-11 13:15:00 2021-08-11 13:15:00 Outpatient R IZZY [facility] [id number] [facility] 2021-08-10 00:00:00 2021-08-10 00:00:00 Patient Secure Msg Izzy [facility] BUILDING 1.2.840.114 350.1.13.10 4.2.7.2.686 [id number] 134 [id number] [facility] 2021-08-09 12:00:00 2021-08-09 12:15:00 Leather Stitcher Visit 1, [facility] Moustapha Magana [facility] 1.2840.114 350.1.13.10 4.2.7.2.686 [id number] [facility] 2021-08-09 10:00:00 2021-08-09 11:33:08 [facility] [id number] [facility] 2021-08-09 10:00:00 2021-08-09 11:33:08 [facility]ine [facility] 1.2.840.114 350.1.13.10 4.2.7.2.686 [id number] 134 [id number] [facility] 2021-08-05 08:45:00 2021-08-05 08:45:00 Outpatient R [facility] [id number] [facility] 2021-08-04 12:39:00 2021-08-04 16:10:00 Outpatient P MOUSTAPHA MAGANA [facility] [id number] [facility] 2021-08-04 12:39:00 2021-08-04 16:10:00 Hospital Encounter Moustapha Magana [facility] 1..840.114 350.1.13.10 4.2.7.2.686 [id number] [id number] [facility] 2021-08-04 09:45:00 2021-08-04 12:15:41 Outpatient R MOUSTAPHA MAGANA [facility] [id number] [facility] 2021-08-04 09:45:00 2021-08-04 12:15:41 Routine Visit Moustapha Magana [facility] BUILDING 1..840.114 350.1.13.10 4.2.7.2.686 [id number] 134 [id number] [facility] 2021-08-03 08:00:00 2021-08-03 08:30:00 Leather Stitcher Visit Ultrasound, Adc [facility] BUILDING 1..840.114 350.1.13.10 4.2.7.2.686 [id number] 134 [id number] [facility] 2021-08-03 08:00:00 2021-08-03 08:00:00 Outpatient P TOSHIA BARAJAS SHANNON [facility] [id number] [facility] 2021-07-29 00:00:00 2021-07-29 00:00:00 Patient Secure Msg [facility] BUILDING 1.2.840.114 350.1.13.10 4.2.7.2.686 [id number] 134 [id number] [facility] 2021-07-29 00:00:00 2021-07-29 00:00:00 Patient Secure Msg Doctor Unassigned, [place] [facility] BUILDING 1.2.840.114 350.1.13.10 4.2.7.2.686 [id number] 134 [id number] [facility] 2021-07-28 13:15:00 2021-07-28 13:17:03 Leather Stitcher Visit 2, Adc Lab Moustapha Magana [facility] BUILDING 1.2.840.114 350.1.13.10 4.2.7.2.686 [id number] [facility] 2021-07-28 13:15:00 2021-07-28 13:15:00 Outpatient R MOUSTAPHA MAGANA [facility] [id number] [facility] 2021-07-28 10:45:00 2021-07-28 12:27:55 Routine Visit Moustapha Magana [facility] BUILDING 1.2.840.114 350.1.13.10 4.2.7.2.686 [id number] 134 [id number] [facility] 2021-07-16 00:00:00 2021-07-16 00:00:00 Patient Secure Msg Moustapha Magana [facility] BUILDING 1.2.840.114 350.1.13.10 4.2.7.2.686 [id number] 134 [id number] [facility] 2021-07-16 00:00:00 2021-07-16 00:00:00 Patient Secure Msg Moustapha Magana [facility] BUILDING 1.2.840.114 350.1.13.10 4.2.7.2.686 [id number] 134 [id number] [facility] 2021-07-13 13:33:36 2021-07-13 14:15:32 Routine Visit Moustapha Magana [facility] BUILDING 1.2.840.114 350.1.13.10 4.2.7.2.686 [id number] 134 [id number] [facility] 2021-07-13 13:15:00 2021-07-13 14:15:32 Outpatient R MOUSTAPHA MAGANA [facility] [id number] [facility] 2021-06-30 16:00:00 2021-06-30 16:00:00 [facility] [id number] [facility] 2021-06-29 11:24:21 2021-06-29 12:02:34 Routine Visit Moustapha Magana [facility] ALYSA [facility] 1.2.840.114 350.1.13.10 4.2.7.2.686 [id number] 134 [id number] [facility] 2021-06-29 11:00:00 2021-06-29 11:25:51 Outpatient P TOSHIA BARAJAS SHANNON [facility] [id number] [facility] 2021-06-29 11:00:00 2021-06-29 11:25:51 Outpatient P TOSHIA BARAJAS SHANNON [facility] [id number] [facility] 2021-06-29 10:56:01 2021-06-29 11:25:51 Leather Stitcher Visit Ultrasound, Adc Toshia Lopez [facility] BUILDING 1.2.840.114 350.1.13.10 4.2.7.2.686 [id number] 134 [id number] [facility] 2021-06-23 09:00:00 2021-06-23 09:00:00 Outpatient P [facility] [id number] [facility] 2021-06-23 09:00:00 2021-06-23 09:00:00 Outpatient P [facility] [id number] [facility] 2021-06-22 00:00:00 2021-06-22 00:00:00 Patient Secure Msg [facility] 1.2.840.114 350.1.13.10 4.2.7.2.686 [id number] 134 [id number] [facility] 2021-06-17 13:05:55 2021-06-17 14:07:46 Routine Visit Moustapha Magana [facility] BUILDING 1.2.840.114 350.1.13.10 4.2.7.2.686 [id number] 134 [id number] [facility] 2021-06-17 13:00:00 2021-06-17 14:07:46 Outpatient R MOUSTAPHA MAGANA [facility] [id number] [facility] 2021-06-08 14:30:00 2021-06-08 14:30:00 Outpatient R MOUSTAPHA MAGANA [facility] [id number] [facility] 2021-06-08 13:06:02 2021-06-08 13:34:35 Nurse Visit Nurse, [facility] Moustapha Magana [facility] BUILDING 1.2.840.114 350.1.13.10 4.2.7.2.686 [id number] 134 [id number] [facility] 2021-06-08 08:20:42 2021-06-08 08:35:42 Leather Stitcher Visit 2, [facility] Lab Moustapha Magana [facility] BUILDING 1.2.840.114 350.1.13.10 4.2.7.2.686 [id number] [facility] 2021-06-03 10:33:03 2021-06-03 11:48:31 Leather Stitcher Visit 2, [facility] Izzy [facility] BUILDING 1.2.840.114 350.1.13.10 4.2.7.2.686 [id number] [facility] 2021-06-03 10:00:00 2021-06-03 10:00:00 Outpatient R MOUSTAPHA MAGANA [facility] [id number] [facility] 2021-06-03 00:00:00 2021-06-03 00:00:00 Patient Secure Msg Doctor Unassigned, [place] [facility] 1.2.840.114 350.1.13.10 4.2.7.2.686 [id number] [facility] 2021-06-03 00:00:00 2021-06-03 00:00:00 Case Management Columb[facility] Dill [facility] 1.2.840.114 350.1.13.10 4.2.7.2.686 [id number] 134 [id number] [facility] 2021-05-20 15:38:31 2021-05-20 16:28:19 Routine Visit [facility] 1.2.840.114 350.1.13.10 4.2.7.2.686 [id number] 134 [id number] [facility] 2021-05-20 15:30:00 2021-05-20 15:30:00 Outpatient R MAGANA MOUSTAPHA [facility] [id number] [facility] 2021-04-26 11:37:34 2021-04-26 12:22:57 Routine Visit MaganaMoustapha Prem [facility] nal Building 1.2.840.114 350.1.13.10 4.2.7.2.686 [id number] 134 [id number] [facility] 2021-04-26 11:00:00 2021-04-26 11:00:00 Outpatient R MOUSTAPHA MAGANA [facility] [id number] [facility] 2021-04-22 10:31:00 2021-04-22 11:46:00 Leather Stitcher Visit Ultrasound, Max Peerz [facility] 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 1.2.840.114 350.1.13.10 4.2.7.2.686 [id number] [facility] 2021-04-22 10:00:00 2021-04-22 10:00:00 Outpatient P [facility] [id number] [facility] 2021-04-22 10:00:00 2021-04-22 10:00:00 Outpatient P MXA SEAY [facility] [id number] [facility] 2021-04-22 00:00:00 2021-04-22 00:00:00 Case Management Moustapha Magana [facility] 1.2.840.114 350.1.13.10 4.2.7.2.686 [id number] 134 [id number] [facility] 2021-04-05 00:00:00 2021-04-05 00:00:00 Telephone Seb Maganaen [facility] 1.2.840.114 350.1.13.10 4.2.7.2.686 [id number] 134 [id number] [facility] 2021-04-05 00:00:00 2021-04-05 00:00:00 Telephone MaganaMoustapha [facility] 1.2.840.114 350.1.13.10 4.2.7.2.686 [id number] 134 [id number] [facility] 2021-03-25 15:00:00 2021-03-25 15:55:18 Outpatient R MARY KRISHNA [facility] [id number] [facility] 2021-03-25 14:45:22 2021-03-25 15:05:22 Office Visit Mary Krishna [facility] 1.2.840.114 350.1.13.10 4.2.7.2.686 [id number] [facility] 2021-03-25 14:05:15 2021-03-25 14:20:15 Routine Visit Moustapha Magana [facility] Building 1.2.840.114 350.1.13.10 4.2.7.2.686 [id number] 134 [id number] [facility] 2021-03-25 00:00:00 2021-03-25 00:00:00 Orders Only Doctor Unassigned, [place] [facility] 1.2.840.114 350.1.13.10 4.2.7.2.686 [id number] [id number] [facility] 2021-03-25 00:00:00 2021-03-25 00:00:00 Orders Only Doctor Unassigned, [place] [facility] 1.2.840.114 350.1.13.10 4.2.7.2.686 [id number] [facility] 2021-03-16 15:55:35 2021-03-16 16:49:42 Routine Visit Muostapha Magana [facility] 1.2840.114 350.1.13.10 4.2.7.2.686 [id number] 134 [id number] [facility] 2021-03-16 16:00:00 2021-03-16 16:00:00 Outpatient R MOUSTAPHA MAGANA [facility] [id number] [facility] 2021-03-16 00:00:00 2021-03-16 00:00:00 Patient Secure Msg Moustapha Magana [facility] Building 1.2840.114 350.1.13.10 4.2.7.2.686 [id number] 134 [id number] [facility] 2021-02-25 13:23:30 2021-02-25 14:32:38 Routine Visit Moustapha Magana [facility] 1.2.840.114 350.1.13.10 4.2.7.2.686 [id number] 134 [id number] [facility] 2021-02-25 13:15:00 2021-02-25 13:15:00 Outpatient R MOUSTAPHA MAGANA [facility] [id number] [facility] 2021-02-01 00:00:00 2021-02-01 00:00:00 Telephone Moustapha Magana [facility] 1.2.840.114 350.1.13.10 4.2.7.2.686 [id number] 134 [id number] [facility] 2021-02-01 00:00:00 2021-02-01 00:00:00 Patient Secure Msg Moustapha Magana [facility] 1.2.840.114 350.1.13.10 4.2.7.2.686 [id number] 134 [id number] [facility] 2021-01-29 11:46:20 2021-01-29 12:01:20 Leather Stitcher Visit 1, Adc Lab Moustapha Magana [facility] 1.2.840.114 350.1.13.10 4.2.7.2.686 [id number] [facility] 2021-01-29 11:00:00 2021-01-29 11:00:00 Outpatient R MOUSTAPHA MAGANA [facility] [id number] [facility] 2021-01-28 14:02:08 2021-01-28 15:38:20 Initial Visit Moustapha Magana [facility] 1.2.840.114 350.1.13.10 4.2.7.2.686 [id number] 134 [id number] [facility] 2021-01-28 14:00:2021-01-28 14:00:00 Outpatient R MOUSTAPHA MAGANA [facility] [id number] [facility] 2021-01-28 00:00:00 2021-01-28 00:00:00 Orders Only Doctor Unassigned, [place] [facility] 1.2.840.114 350.1.13.10 4.2.7.2.686 [id number] [facility] Results Test Description Test Time Test Comments Results Result Co mments Source [facility] 02:42:22* Test Item Value Reference Range Interpretation Comme nts MAGNESIUM (test code = 0875093953) 2.2 mg/dL 1.7-2.4 Lab Interpretation (test cod e = 42478-8) Normal [facility] 1 [id number] 02:08:05Exam: XR CHEST 1 , 02/02/2024 8:00 PM. Ordering Physician: RADHA LAZCANO. History: palpitations . Technique: One view of the chest. Comparison: None available at the time of dictation. Findings: No focal consolidation. No pneumothorax or effusion. Normal size of thecardiac silhouette. No acute osseous finding on this single view.[facility] HospitalD-[id number] 02:02:59* Test Item Value Reference Range Interpretation Comments D-DIMER (test code = 8826304363) 0.48 See_Comment [Automated message] The system which generated this result transmitted reference range: <0.50 ?g/mL (FEU). The reference range was not used to interpret this result as normal/abnormal. MADAI (test code = MADAI) This test may be used in conjunction with a clinical pretest probability (PTP) assessment model to exclude venous thromboembolism (VTE) in patients suspected of deep venous thrombosis (DVT) and pulmonary embolism (PE) A D-Dimer value less than 0.50 ?g/ml (FEU) has a negative predicative value of 96 to 100% (95% CI)and 97 to 100% (95% CI) as an aid in the diagnosis of deep vein thrombosis (DVT) and pulmonary embolism when there is low or moderate pretest probability of PE or DVT. D-Dimer values are expressed in initial fibrinogen equivalent units (FEU)" The assay results should be used with other information, including the clinical context, in forming a diagnosis. Lab Interpretation (test code = 38340-1) Normal [facility] HospitalTROPONIN [id number] 01:44:33* Test Item Value Reference Range Interpretation Comme nts TROPONIN I (test code = 7426890389) <=0.034 MADAI (test code = MADAI) Reference (Normal) Range (defined by the 99th percentile reference limit): <= 0.034 ng/mL Note: Cardiac troponin begins to rise 3-4 hours after the onset of ischemia. Repeat in 4-6 hours if the sample was drawn within 3-4 hours of the onset of the symptom and found normal. Diagnosis of myocardial injury is made with acute changes in cTn concentrations with at least one serial sample above the 99th percentile upper reference limit (URL), taken together with the patient's clinical presentation. Biotin has been reported to cause a negative bias, interpret results relative to patient's use of biotin. Lab Interpretation (test code = 61329-0) Normal [facility] HospitalCOMP. METABOLIC PANEL (81796)2024-02-03 01:41:23* Test Item Value Reference Range Interpretation Comme nts NA (test code = 7352680394) 140 mmol/L 135-145 K (test code = 8666729261) 2.9 mmol/L 3.5-5.0 LL CL (test code = 0588850113) 106 mmol/L 98-108 CO2 TOTAL (test code = 4440181828) 25 mmol/L 23-31 AGAP (test code = 0895276652) 9 2-16 BUN (test code = 6759732371) 8 mg/dL 7-23 GLUCOSE (test code = 1940338379) 104 mg/dL 70-110 CREATININE (test code = 2160-0) 0.80 mg/dL 0.50-1.04 TOTAL BILI (test code = 9109955768) 0.9 mg/dL 0.1-1.1 CALCIUM (test code = 3641151282) 8.8 mg/dL 8.6-10.6 T PROTEIN (test code = 8782511272) 7.6 g/dL 6.3-8.2 ALBUMIN (test code = 5368501833) 4.3 g/dL 3.5-5.0 ALK PHOS (test code = 8576625607) 68 U/L 34-122 ALTv (test code = 1742-6) 15 U/L 5-35 AST(SGOT) (test code = 4662274079) 22 U/L 13-40 eGFR (test code = 02009-6) 97.5 mL/min/1.73m2 CKD-EPI eGFR (2020). Assuming creatinine has been stable day-to-day for at least three months, the eGFR indicates Category G1 (>= 90 mL/min/1.73 m2) Lab Interpretation (test code = 56522-0) Abnormal [facility] HospitalLIPASE, [id number] 01:32:52* Test Item Value Reference Range Interpretation Comme nts LIPASE (test code = 4264648363) 264 U/L 0-220 H Lab Interpretation (test cod e = 58799-2) Abnormal [facility] HospitalCBC WITH [id number] 01:19:54* Test Item Value Reference Range Interpretation Comme nts WBC (test code = 6690-2) 9.19 4.30-11.10 RBC (test code = 789-8) 4.85 3.93-5.25 HGB (test code = 718-7) 13.4 g/dL 11.6-15.0 HCT (test code = 4544-3) 40.6 % 35.7-45.2 MCV (test code = 787-2) 83.7 fL 80.6-95.5 MCH (test code = 785-6) 27.6 pg 25.9-32.8 MCHC (test code = 786-4) 33.0 g/dL 31.6-35.1 RDW-SD (test code = 71140-9) 38.5 fL 39.0-49.9 L RDW-CV (test code = 788-0) 12.7 % 12.0-15.5 PLT (test code = 777-3) 278 166-358 MPV (test code = 54166-1) 10.4 fL 9.5-12.9 NRBC/100 WBC (test code = 6933061233) 0.0 0.0-10.0 NRBC x10^3 (test code = 4324682693) See_Comment [Automated messa ge] The system which generated this result transmitted reference range: 10*3/?L. The reference range was not used to interpret this result as normal/abnormal. GRAN MAT (NEUT) % (test code = 770-8) 57.3 % IMM GRAN % (test code = 0949337939) 0.20 % LYMPH % (test code = 736-9) 34.9 % MONO % (test code = 5905-5) 4.9 % EOS % (test code = 713-8) 1.7 % BASO % (test code = 706-2) 1.0 % GRAN MAT x10^3(ANC) (test code = 1019236531) 5.26 10*3/uL 1.88-7.09 IMM GRAN x10^3 (test code = 6248788887) 0.00-0.06 LYMPH x10^3 (test code = 731-0) 3.21 10*3/uL 1.32-3.29 MONO x10^3 (test code = 742-7) 0.45 10*3/uL 0.33-0.92 EOS x10^3 (test code = 711-2) 0.16 10*3/uL 0.03-0.39 BASO x10^3 (test code = 704-7) 0.09 10*3/uL 0.01-0.07 H Lab Interpretation (test code = 01814-5) Abnormal [facility] Urinalysis w/o Specific [id number] 15:48:00* Test Item Value Reference Range Interpretation Comme nts POCT PH U (test code = 3254) 6 mg/dl 5-8 POCT U LEUK EST (test code = 3263) negative Negative - Negative POCT U NIT (test code = 3262) negative Negative - Negati ve POCT U PROT (test code = 3259) negative Negative - Negat kelly POCT U GLU (test code = 3256) negative Negative - Negati ve POCT U KETONE (test code = 3258) negative Negative - Neg ative POCT U BLD (test code = 3257) negative Negative - Negati ve [facility] Urinalysis w/o Specific [id number] 15:48:00* Test Item Value Reference Range Interpretation Comme nts POCT PH U (test code = 3254) 6 mg/dl 5-8 POCT U LEUK EST (test code = 3263) negative Negative - Negative POCT U NIT (test code = 3262) negative Negative - Negati ve POCT U PROT (test code = 3259) negative Negative - Negat kelly POCT U GLU (test code = 3256) negative Negative - Negati ve POCT U KETONE (test code = 3258) negative Negative - Neg ative POCT U BLD (test code = 3257) negative Negative - Negati ve [facility]POCT [id number] 21:47:00* Test Item Value Reference Range Interpretation Comme nts POCT PREG (test code = 1605) Negative On board controls acceptable with C Line (test code = 3574) Yes Lab Interpretation (test cod e = 04758-5) Normal [facility] HospitalSEDIMENTATION [id number] 05:13:53* Test Item Value Reference Range Interpretation Comme nts ESR (test code = 43618-5) 7 See_Comment [Automated message] The system which generated this result transmitted reference range: 0 - 20 mm/HR. The reference range was not used to interpret this result as normal/abnormal. Lab Interpretation (test code = 31333-7) Normal [facility] [id number] 05:13:53* Test Item Value Reference Range Interpretation Comme nts ESR (test code = 83220-9) 7 See_Comment [Automated message] The system which generated this result transmitted reference range: 0 - 20 mm/HR. The reference range was not used to interpret this result as normal/abnormal. Lab Interpretation (test code = 45654-0) Normal [facility] Notes Date/Time Note Provider Source 2024-02-02 22:45:40 [id number]:45:40F ormatting of this note might be different from the original.Pt discharged with diagnosis of palpitations, hypokalemia, L leg pain, localized swelling of L foot, and abnormal thyroid function test. Printed and verbal instructions reviewed with and given to pt. Prescriptions given x 1. Pt verbalized understanding of teaching, medication, and recommended follow-up. Denies questions or concerns at this time. Pt ambulatory at discharge. Appears in no apparent distress. No ataxia noted. [id number] [place] [address] PamcMU7432-09-78K30:46:58[facility] NoteTXT1.2.840.110722.1.13.104.2.7 .2.489105|[id number] for patient hhsw71525-7BbbmSWJWLGGURKLXrvxjvsv d C-CDA narrative [id number] R Potter RNUT[id number] 25ZCEBVJYTERZJYCYSPSPNIN5353-06-31 T22:46:581.2.840.428043.1.72.3.15| 1.2.840.667736.1.13.104.2.7.2.7278 [id number] Adina Patel RN [facility] 2024-02-02 21:38:25 7163-95-70P18:38:25F ormatting of this note might be different from the original.Vascular doppler in process JQ0Bxrkeqoxjosbex signed by Antionette Henry RN at 02/02/2024 9:38 PM [id number] [place] [address] QbmqRS5954-38-04D20:38:41[facility] NoteTXT1.2.840.636291.1.13.104.2.7 .2.705852|[id number] for patient apze67266-5FuwrCOEIIMRRQZXTnhdhgin d C-CDA narrative text[id number] 95PKRHARLPJOGTJDLEMGLSYL6157-50-56 T21:38:411.2.840.760477.1.72.3.15| 1.2.840.819850.1.13.104.2.7.2.7278 [id number] [facility] 2024-02-02 19:44:49 4918-85-78P13:44:49F ormatting of this note might be different from the original.CC: Heart rate high (up to 140s) and left foot swelling x 2 weeks. "My heart feels like it is going to beat out of my chest." Pt also reports nausea and indigestion.PMHx: anxietyAwake, alert, oriented, resp reg unlabored, skin warm, color appropriate for race, moves all ext without difficulty, amb with limping gait 07132-0Ilkxmtnlz department Triage nkskHH4440-67-38N48:46:18[facility] Triage noteTXT1.2.840.476024.1.13.104.2.7 .2.799638|[id number] for patient tqpx04212-2Imtpmoshx department NoteLNNARRATIVEFormatted C-CDA narrative [id number] R Shehadeh RNUT23 Davis StreetRl[id number] 12XMKSTJEXISMBUQLDKFSAUL1091-67-40 T19:46:181.2.840.611613.1.72.3.15| 1.2.840.281284.1.13.104.2.7.2.7278 [id number] Antionette Henry RN [facility] 2024-01-08 21:03:05 2264-57-88E33:03:05F ormatting of this note might be different from the [place]. [address]-9Gnjeawblh encounter LqbrLL3321-55-02X53:04:12Telephone encounter NoteTXT1.2.840.103604.1.13.104.2.7 .2.168266|[id number] for patient itxo85242-0HxakDWIVMFHYUJTGxjznkak d C-CDA narrative text00 [id number] 69ULHZRXJHOAJUJGAEDSHWNC5858-71-16 T21:04:121.2.840.573161.1.72.3.15| 1.2.840.208256.1.13.104.2.7.2.7278 [id number] [facility] 2023-03-30 14:30:00 9677-30-85P49:30:00F ormatting of this note is different from the original.Images from the original note were not included.Pt is here to complete all blood work for Mirlande Rubio A, PA .Goran Gardner 03/30/2023 2:23 PMVenipuncture collection performed by clean technique on the right anticubitus. Total of 1 attempts were made. Slight pressure and a bandage/dressing were applied to the site(s). The patient experienced no complications. The following specimens were processed according to instructions and sent to [facility] laboratories per lab order on 03/30/2023: LT BLUE SST 3 RED LAV PPT DK GREEN (LiHep) DK GREEN (SodH) BOTELLO DK BLUE (K2) DK BLUE (S) ACD Blood Culture NIPT/NTD 25049-9Yvham WhtaGZ9733-71-09O30:31:46Nurse NoteTXT1.2.840.127610.1.13.104.2.7 .2.571666|[id number] for patient mwjt30253-2Wccdp NoteLN00 [address]TXTX[address]75 44OANQXXDKIRJDGXARYCWEDD7660-98-42 T14:31:461.2.840.679376.1.72.3.15| 1.2.840.403711.1.13.104.2.7.2.7278 [id number] [facility] 2023-03-28 20:06:53 0879-18-56D09:06:53F ormatting of this note might be different from the original.Patient discharged home. Given all education and information regarding s/s of worsening condition; prescription use; and importance of follow up. Patient verbalized understanding. Alert and ambulatory to pov. 32594-9Zqgczeodw department GyvaWE7385-40-98R96:07:32[facility] NoteTXT1.2.840.799196.1.13.104.2.7 .2.488251|[id number] for patient ypjo91138-1YcfeJV358276402Veiwkz A Paul RNUT[id number] 41CHLNRKMNOUSFOAZOGQLPLZ5229-51-13 T20:07:321.2.840.722544.1.72.3.15| 1.2.840.176277.1.13.104.2.7.2.7278 [id number] Gale King RN [facility] 2023-03-28 16:12:35 8287-17-19S18:12:35F ormatting of this note might be different from the original.Chest wall pain to left side that radiates to left upper back.+Shortness of breath. Recently had COVID and started having symptoms post COVID but worsened ~5 days ago. +Nausea. [facility] - 03/23/2023Hx - Anxiety 51160-5Zhhlgbqdj department Triage stthRI5745-01-62R01:16:43[facility] Triage noteTXT1.2.840.822033.1.13.104.2.7 .2.591063|[id number] for patient btlq73336-7Zfucpwpxi department [id number] Oxford RNUTREHABILITATION [facility] - [address] OynhUfmzbyfpyMsbwfmmhfLRKV44506945 12OUEVAPMCIWDJLJCNKNIEYF4646-67-01 T16:16:431.2.840.780372.1.72.3.15| 1.2.840.081971.1.13.104.2.7.2.7278 [id number] Irma Oviedo RN [facility] 2023-03-28 16:04:00 6876-91-60X39:04:00F ormatting of this note is different from the original.[facility]MENT [facility] Isaac Perez of : 1985 37 year oldMRN: [id number] Room:[address] Physician: Eleazar Novak- [facility] Patient Escorted by: Self [9]Mode of Arrival: Personal means [1]EMS Treatment Prior to ED Arrival: ED Events Date/Time Event User Comments 03/28/23 1632 Medical Screening Begins KAYCEE DIANA MD -- 03/28/23 1632 First Provider Evaluation KAYCEE DIANA MD -- Chief Complaint Chief Complaint Patient presents with Chest wall pain Chest Pain Shortness of Breath ED Triage Notes Irma Oviedo RN 03/28/2023 16:16 Chest wall pain to left side that radiates to left upper back.+Shortness of breath. Recently had COVID and started having symptoms post COVID but worsened ~5 days ago. +Nausea. [facility] - 03/23/2023Hx - Anxiety HPI History provided by: PatientChest PainPain location: L chestPain quality: aching Pain radiates to: Mid backPain severity: ModerateOnset quality: GradualDuration: 1 dayTiming: ConstantChronicity: NewRelieved by: NothingWorsened by: NothingAssociated symptoms: no abdominal pain, no cough, no dizziness, no fatigue, no fever, no headache, no nausea, no palpitations, no shortness of breath and no vomiting Risk factors: no control, no high cholesterol and no hypertension Past Medical History / Immunizations Past Medical History: Diagnosis Date Anemia Anxiety Colitis 2010 Depression depression Pap smear abnormality of cervix Colposcopy / 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 Vaping Use Never used Alcohol Use Never. Drug Use Never. Sexual Activity Not currently sexually active; Partners: Male; Control/Protection: None, Surgical. Comments: Essure 2010 Removal Review of Systems Review of Systems Constitutional: Negative. Negative for chills, fatigue, fever and unexpected weight change. HENT: Negative. Eyes: Negative. Negative for discharge and itching. Respiratory: Negative. Negative for cough, chest tightness, shortness of breath and wheezing. Cardiovascular: Positive for chest pain. Negative for palpitations. Gastrointestinal: Negative. Negative for abdominal distention, abdominal pain, nausea and vomiting. Genitourinary: Negative. Negative for dysuria, urgency, frequency and flank pain. Musculoskeletal: Negative. Skin: Negative. Negative for color change, pallor and wound. Neurological: Negative. Negative for dizziness, syncope, light-headedness and headaches. Psychiatric/Behavioral: Negative. Negative for agitation and behavioral problems. All other systems reviewed and are negative.Endocrine: Endocrine negativePhysical Exam ED Triage Vitals [03/28/23 1615] Weight 99.8 kg (220 lb) Actual or estimated Actual Height 1.6 m (5' 3") BP (!) 145/87 Pulse 88 Resp 18 Temp 37.1 ?C (98.8 ?F) Temp source Oral SpO2 100 % Measured on Room air Physical ExamVitals reviewed. Constitutional: Appearance: She is well-developed. She is obese. HENT: Head: Normocephalic and atraumatic. Eyes: Conjunctiva/sclera: Conjunctivae normal. Cardiovascular: Rate and Rhythm: Normal rate and regular rhythm. Heart sounds: Normal heart sounds. Pulmonary: Effort: Pulmonary effort is normal. No respiratory distress. Breath sounds: Normal breath sounds. No stridor. No wheezing or rales. Abdominal: General: Bowel sounds are normal. There is no distension. Palpations: Abdomen is soft. Tenderness: There is no abdominal tenderness. There is no guarding or rebound. Musculoskeletal: General: Normal range of motion. Cervical back: Neck supple. Skin: General: Skin is warm and dry. Neurological: Mental Status: She is alert and oriented to person, place, and time. Cranial Nerves: No cranial nerve deficit. Sensory: No sensory deficit. Psychiatric: Behavior: Behavior normal. Thought Content: Thought content normal. Judgment: Judgment normal. Labs Lab Results URINALYSIS - Abnormal Result Value Ref Range APPEARANCE Clear Clear COLOR Colorless (*) Yellow PH 7.0 4.8 - 8.0 SP GRAVITY 1.003 1.003 - 1.030 GLU U QUAL Normal Normal BLOOD 2+ (*) Negative KETONES Negative Negative PROTEIN Negative Negative UROBILIN Normal Normal BILIRUBIN Negative Negative NITRITE Negative Negative LEUK CASEY Negative Negative RBC/HPF 1 0 - 3 HPF WBC/HPF 1 0 - 5 HPF BACTERIA Negative Negative SQ EPITH 1 HPF LIPASE - Abnormal LIPASE 236 (*) 0 - 220 U/L D-DIMER - Abnormal D-DIMER 0.41 (*) <0.41 ?g/mL (FEU) POCT TEST - Normal POCT PREG Negative On board controls acceptable with C Line Yes URINE DRUG (IMMUNOASSAY) - COMPREHENSIVE DRUG SCREEN W/O REFLEX - Normal AMPHET Negative Negative RAFAELA U Negative Negative BENZO U Negative Negative Cocaine Metabolite Negative Negative METHADONE Negative Negative OPIATES Negative Negative PCP Negative Negative THC Negative Negative TROPONIN I - Normal TROPONIN I 0.003 <=0.034 ng/mL CBC WITH DIFF WBC 7.74 4.30 - 11.10 10*3/?L RBC 4.73 3.93 - 5.25 10*6/?L HGB 12.8 11.6 - 15.0 g/dL HCT 39.2 35.7 - 45.2 % MCV 82.9 80.6 - 95.5 fL MCH 27.1 25.9 - 32.8 pg MCHC 32.7 31.6 - 35.1 g/dL RDW-SD 39.2 39.0 - 49.9 fL RDW-CV 13.1 12.0 - 15.5 % PLT 285 166 - 358 10*3/?L MPV 10.3 9.5 - 12.9 fL NRBC/100 WBC 0.0 0.0 - 10.0 /100 WBCs NRBC x10^3 <0.01 10*3/?L GRAN MAT (NEUT) % 65.0 % IMM GRAN % 0.10 % LYMPH % 28.0 % MONO % 4.7 % EOS % 1.4 % BASO % 0.8 % GRAN MAT x10^3(ANC) 5.03 1.88 - 7.09 10*3/uL IMM GRAN x10^3 <0.03 0.00 - 0.06 10*3/uL LYMPH x10^3 2.17 1.32 - 3.29 10*3/uL MONO x10^3 0.36 0.33 - 0.92 10*3/uL EOS x10^3 0.11 0.03 - 0.39 10*3/uL BASO x10^3 0.06 0.01 - 0.07 10*3/uL COMP. METABOLIC PANEL (01989) NA 140 135 - 145 mmol/L K 4.1 3.5 - 5.0 mmol/L CL 108 98 - 108 mmol/L CO2 TOTAL 24 23 - 31 mmol/L AGAP 8 2 - 16 BUN 8 7 - 23 mg/dL GLUCOSE 87 70 - 110 mg/dL CREATININE 0.57 0.50 - 1.04 mg/dL TOTAL BILI 0.5 0.1 - 1.1 mg/dL CALCIUM 8.8 8.6 - 10.6 mg/dL T PROTEIN 7.5 6.3 - 8.2 g/dL ALBUMIN 4.5 3.5 - 5.0 g/dL ALK PHOS 77 34 - 122 U/L ALTv 17 5 - 35 U/L AST(SGOT) 24 13 - 40 U/L eGFR 120.0 mL/min/1.73m2 Imaging CT CHEST PULMONARY ANGIOGRAM Preliminary Result PROCEDURE: CT CHEST WITH CONTRAST- CHEST PE PROTOCOL CLINICAL INDICATION: 37 years-old Female; PE suspected, intermediate prob, positive D-dimer Comparison: None TECHNIQUE: Volumetric helical CT angiogram was performed of the chest (lung apices to bases) with IV contrast. Images were reconstructed at 1.25 mm and 2.5 mm slice thickness. Corresponding axial MIPs, sagittal and coronal MPR images were generated and reviewed. Axial MIPs and coronal and sagittal MPR images were generated and reviewed. FINDINGS: HEART AND GREAT VESSELS: The opacification of the pulmonary vasculature is appropriate. No filling defects are seen through the level of the segmental pulmonary arteries. The great vessels are normal in caliber. The heart is normal in size. No pericardial abnormalities are identified. The RV to LV is normal. MEDIASTINUM AND LOWER NECK: No central airway lesions are detected. A small sliding hiatal hernia is present. The included thyroid gland appears normal. LYMPH NODES: Scattered small lymph nodes are visualized on both sides of the mediastinum and hilar regions. No evidence of intrathoracic lymphadenopathy is seen. LUNGS AND PLEURA: The lungs are well-expanded and clear. No focal opacities are identified. No suspicious nodules are seen. No pleural abnormality is detected. VISUALIZED UPPER ABDOMEN: Prior cholecystectomy. OSSEOUS STRUCTURES AND SOFT TISSUES: No focal osseous lesions are detected. The soft tissues appear normal. IMPRESSION No evidence of acute or chronic pulmonary embolism through the level of the subsegmental branches. AIDOC (computer aided detection software) confirms the absence of filling defects within the pulmonary arteries. No acute intrathoracic abnormality. Small sliding hiatal hernia. Prior cholecystectomy. Preliminary Report Dictated by Resident: Boubacar Joshi Orders and Treatments Orders Placed This Encounter Procedures CT CHEST PULMONARY ANGIOGRAM POCT TEST URINALYSIS URINE DRUG (IMMUNOASSAY) - COMPREHENSIVE DRUG SCREEN W/O REFLEX CBC WITH DIFF COMP. METABOLIC PANEL (42996) TROPONIN I LIPASE D-DIMER Orders Placed This Encounter Medications iopamidol (ISOVUE 370-500 mL) injection 70 mL naproxen 500 mg tablet methocarbamoL 750 mg tablet Procedures EKGRate 80Normal sinusRate 80Intervals normalNo acute ischemiaNotes & MDM Patient was evaluated for an emergency medical condition related to Chest wall pain, Chest Pain, and Shortness of BreathDDXMSK chest painAnxietyPleuritic chest painHistory and/or review of systems is limited by:History limited: None.Diagnosis/Impression as of 03/28/231958 Chest pain, unspecified type Medical Decision MakingProblems Addressed:Chest pain, unspecified type: acute illness or injuryAmount and/or Complexity of Data ReviewedLabs: ordered. Decision-making details documented in ED Course.Radiology: ordered and independent interpretation performed. Decision-making details documented in ED Course.ECG/medicine tests: ordered and independent interpretation performed. Decision-making details documented in ED Course.RiskPrescription drug management.Limitations to patient care and compliance: none.Assessment/Summary:The patient is a 37-year-old female who presents for left-sided chest pain. EKG does not demonstrate any ectopy or ischemia. Laboratory evaluation is within acceptable limits. However, she does have a elevated D-dimer. CT of the chest did not demonstrate a pulmonary embolism. She likely has musculoskeletal chest pain. She will be sent home with Judith. She will be discharged to follow-up. She can return for any questions or concerns.History, physical exam findings, results of visit, differential diagnosis, medication regimens and plan of future care have been considered. Additional MDM may be found in the ED course. Differential diagnosis considered and final disposition made based on information gathered during evaluation and may not be completely ruled out or specifically listed. Vital signs were rechecked before final disposition.Diagnosis Final diagnoses: [R07.9] Chest pain, unspecified type (Primary) Disposition & Follow Up ED Disposition ED Disposition Disch - Home Condition Stable Comment -- Patient's Medications START taking these medications METHOCARBAMOL 750 MG TABLET Take 1 tablet by mouth 4 (four) times daily. NAPROXEN 500 MG TABLET Take 1 tablet by mouth in the morning and 1 tablet in the evening. Take with meals. Do all this for 10 days. CONTINUE taking these medications which have NOT CHANGED SERTRALINE (ZOLOFT) 50 MG TABLET Take 1 tablet by mouth at bedtime. START taking Modified Medications as Prescribed No medications on file STOP taking these medications No medications on file Future Appointments In 2 days Mirlande Rubio PA [facility], [facility] BLE In 3 weeks Eliel Gutierrez NP [facility] Special Kaycee Diana Jr. MDClinical Development Disability Specialist ProfessorSANTA ANA HEALTH CENTER Emergency DepartmentDragon Dictation Software is used frequently and may produce errors. Promptly contact for obvious discrepancies. Kaycee Diana MD03/28/231958 28746-0Uhozzhphv Emergency department MthsPC9838-78-32A79:59:32Physician Emergency department NoteTXT1.2.840.331240.1.13.104.2.7 .2.645884|[id number] for patient gzfm39442-9Deaffevor department NoteLNUT[address]TXTX[address] 44UHIMXFNMFYEWISEMIJWSAC0052-24-31 T19:59:321.2.840.991439.1.72.3.15| 1.2.840.846963.1.13.104.2.7.2.7278 [id number] [facility]
[2024-02-04] MEDS ORDERED: ONDANSETRON 4 MG/2 ML VIAL ONE (22:04)
[2024-02-04] MEDS ORDERED: LORazepam 2 MG/ML VIAL ONE (22:04)
[2024-02-04] MEDS ORDERED: NA CHLORIDE 0.9% 1,000 ML ONE (22:05)
--- NOTE | 2024-02-04 22:31 | RAD REPORT ---
EXAM DESCRIPTION: US - Extremity Venous Uni Ltd - 02/04/2024 10:21 pm CLINICAL HISTORY: PAIN Leg swelling and edema. COMPARISON: <Comparisons> FINDINGS: Right lower extremity venous system was interrogated with Doppler technique. Normal flow, compressibility and augmentation was noted. There is no DVT present. IMPRESSION: No evidence of right lower extremity deep venous thrombosis.
--- NOTE | 2024-02-04 22:38 | RAD REPORT ---
EXAM DESCRIPTION: RAD - Chest Single View - 02/04/2024 10:32 pm CLINICAL HISTORY: Dyspnea;Palpitations Chest pain. COMPARISON: Chest Single View dated 10/07/2022; Abdomen 1 View (KUB) dated 12/29/2021; Chest Single Vie w dated 11/29/2021; Chest Single View dated 11/24/2021 FINDINGS: Portable technique limits examination quality. The lungs are grossly clear. The heart is normal in size. No displaced fractures. IMPRESSION: No acute intrathoracic process suspected.
[2024-02-04 23:03] LABS: Absolute Basophils 0.1 K/uL (0-0.5); Absolute Eosinophils 0.2 K/uL (0-0.5); Absolute Lymphocytes (CBC) 2.6 K/uL (0.7-4.9); Absolute Monocytes 0.5 K/uL (0.1-1.3); Absolute Neutrophil 5.1 K/uL (1.8-8.0); Eosinophils % 2.6 % (0-4.4); Hematocrit 39.5 % (36.0-45.0); Hemoglobin 13.2 g/dL (12.0-15.0); MCH 26.9 pg (27.0-35.0); MCHC 33.4 g/dL (32.0-36.0); MCV 80.8 fL (80-100); Monocytes % 5.7 % (3.3-12.3); Neutrophils % 59.7 % (41.7-73.7); Nucleated Red Blood Cells % 0.1 % (0-0); Platelets 326 thou/uL (152-406); RBC Red Blood Cell Count 4.89 M/uL (3.86-4.86); Red Cell Distribution Width 13.6 % (12.1-15.2)
[2024-02-05] MEDS ORDERED: MECLIZINE HCL 12.5 MG TAB ONE (00:07)
[2024-02-05 01:43] LABS: ALT/SGPT 21 U/L (13-56); AST/SGOT 15 U/L (15-37); Albumin 3.6 g/dL (3.4-5.0); Alkaline Phosphatase 69 U/L (45-117); Anion Gap 8.3 mEq/L (5.0-15.0); BUN Blood Urea Nitrogen 7 mg/dL (7-18); Bicarbonate 25 mEq/L (21-32); Bilirubin Total 0.4 mg/dL (0.2-1.0); Globulin 3.6 g/dL (2.3-3.5); Glomerular Filtration Rate 99 ml/min (=/>90); Glucose Level 94 mg/dL (74-106); Lipase 90 U/L (13-75); Magnesium 2.4 mg/dL (1.6-2.4); NT PRO-BNP 100 pg/mL (<125); Potassium 3.3 mEq/L (3.5-5.1); Protein, Total 7.2 g/dL (6.4-8.2); Sodium Level 139 mEq/L (136-145)
[2024-02-05 01:50] LABS: Bilirubin Direct < 0.2 mg/dL (0-0.2); Bilirubin Indirect, Calculated 0.2 mg/dL (0.2-0.8)
[2024-02-05] MEDS ORDERED: KETOROLAC 30 MG/ML INJ ONE (02:01)
[2024-02-05] MEDS ORDERED: METOCLOPRAMIDE 10 MG/2mL INJ ONE (02:12)
[2024-02-05] MEDS ORDERED: DIPHENHYDRAMINE 50 MG/ML VIAL ONE (02:12)
--- NOTE | 2024-02-05 02:25 | ER ---
Nurse's Notes [facility] Name: Marivel Loya Age: 38 yrs Sex: Female : 1985 Arrival Date: 02/04/2024 Time: 21:39 Bed 6 Private MD: Diagnosis: hemorrhagic ovarian complex cyst , acute panic attack, elevated blood pressure, anxiety disorder Presentation: 02/03 21:49 Chief complaint: Patient states: Pain to abd, R calf, dizziness, nausea/vomiting that ss began 1 hour ago. Coronavirus screen: Client denies travel out of the [place] in the last 14 days. Ebola Screen: Patient denies exposure to infectious person. Patient denies travel to an Ebola-affected area in the 21 days before illness onset. Initial Sepsis Screen: Does the patient meet any 2 criteria? No. Patient's initial sepsis screen is negative. Does the patient have a suspected source of infection? No. Patient's initial sepsis screen is negative. Risk Assessment: Do you want to hurt yourself or someone else? Patient reports no desire to harm self or others. Onset of symptoms was February 04, 2024. 21:49 Method Of Arrival: Ambulatory ss 21:49 Acuity: JOHN 3 ss Historical: - Allergies: 22:09 Morphine; ss - PMHx: 22:09 Anxiety; ss - PSHx: 22:09 Cholecystectomy; Tonsillectomy; ss - Immunization history:: Client reports having NOT received the Covid vaccine. - Infectious Disease History:: Denies. - Social history:: Smoking status: Patient denies any tobacco usage or history of. Screenin:50 [facility] ED Fall Risk Assessment (Adult) History of falling in the last 3 months, bm8 including since admission No falls in past 3 months (0 pts) Confusion or Disorientation No (0 pts) Intoxicated or Sedated No (0 pts) Impaired Gait No (0 pts) Mobility Assist Device Used No (0 pt) Altered Elimination No (0 pt) Score/Fall Risk Level 0 - 2 = Low Risk Oriented to surroundings, Maintained a safe environment, Educated pt \\T\\ family on fall prevention, incl call for assistance when getting out of bed, Assessed \\T\\ reinforced patient's understanding of fall precautions. Abuse screen: Denies threats or abuse. Nutritional screening: No deficits noted. Tuberculosis screening: No symptoms or risk factors identified. Assessment: 22:50 Reassessment: Patient and/or family updated on plan of care and expected duration. Pain bm8 level reassessed. Patient is alert, oriented x 3, equal unlabored respirations, skin warm/dry/pink. General: Appears in no apparent distress. uncomfortable, unkempt, well developed, well nourished, Behavior is cooperative, appropriate for age, anxious, crying. Pain: Complains of pain in chest and abdomen Pain does not radiate. Pain currently is 4 out of 10 on a pain scale. Quality of pain is described as "not right". Pain: Pain began 1 day ago. Neuro: No deficits noted. Level of Consciousness is awake, alert, obeys commands, Oriented to person, place, time, situation, Appropriate for age. Cardiovascular: No deficits noted. Heart tones S1 S2 present Capillary refill < 3 seconds Patient's skin is warm and dry. Rhythm is sinus rhythm. Cardiovascular: Reports chest pain, lightheadedness, nausea, shortness of breath, vomiting. Respiratory: Respiratory: Airway is patent Trachea midline Respiratory effort is even, unlabored, Respiratory pattern is regular, symmetrical, Breath sounds are clear bilaterally. GI: Bowel sounds present X 4 quads. Reports nausea, vomiting. : No signs and/or symptoms were reported regarding the genitourinary system. EENT: No signs and/or symptoms were reported regarding the EENT system. 23:43 Reassessment: Patient appears in no apparent distress at this time. bm8 07/ 00:09 Reassessment: Patient appears in no apparent distress at this time. Patient and/or bm8 family updated on plan of care and expected duration. Pain level reassessed. Patient is alert, oriented x 3, equal unlabored respirations, skin warm/dry/pink. Neuro: No deficits noted. Level of Consciousness is awake, alert, obeys commands, Oriented to person, place, time, situation, Appropriate for age. Cardiovascular: Reports dizziness GI: Abdomen is flat, non-distended, Abdomen is tender to palpation in left lower quadrant Reports cramping. 00:09 Pain: Complains of pain in abdomen Pain currently is 2 out of 10 on a pain scale. bm8 02:17 Reassessment: Patient appears in no apparent distress at this time. Patient and/or bm8 family updated on plan of care and expected duration. Pain level reassessed. Patient is alert, oriented x 3, equal unlabored respirations, skin warm/dry/pink. Patient states feeling better. Patient states symptoms have improved. Vital Signs: 02/03 21:48 BP 93 / 57; Pulse 102; Resp 23; Temp 98.6; Pulse Ox 100% on R/A; Weight 104.33 kg; rv1 Height 5 ft. 3 in. ; Pain 4/10; 22:09 BP 114 / 67; Pulse 102; Resp 20; ss 23:41 BP 106 / 66; Pulse 82; Resp 13; Pulse Ox 100% on R/A; MAP 79 mmHg; bm8 02/04 00:09 BP 110 / 77; Pulse 91; Resp 14; Temp 98.6; Pulse Ox 100% ; Pain 2/10; bm8 01:27 BP 105 / 65; Pulse 83; Pulse Ox 99% on R/A; tm6 02:17 BP 104 / 60; Pulse 80; Resp 16; Temp 98.6; Pulse Ox 100% on R/A; Pain 2/10; bm8 02:46 BP 110 / 72; Pulse 100; Resp 18; Temp 97.5(TE); Pulse Ox 98% on R/A; Pain 0/10; bm8 02/03 21:48 Body Mass Index 40.74 (104.33 kg, 160.02 cm) rv1 02/03 21:48 Pain Scale: Adult rv1 02/04 00:09 Pain Scale: Adult bm8 02:17 Pain Scale: Adult bm8 02:46 Pain Scale: Adult bm8 Eros Coma Score: 02/03 22:50 Eye Response: spontaneous(4). Motor Response: obeys commands(6). Verbal Response: bm8 oriented(5). Total: 15. 02/04 00:09 Eye Response: spontaneous(4). Motor Response: obeys commands(6). Verbal Response: bm8 oriented(5). Total: 15. ED Course: 02/03 21:41 Patient arrived in ED. jj6 21:42 Rylee Lomas FNP-C is [facility]. kb 21:42 Lenin Gayle MD is Attending Physician. kb 22:00 Bartolome Bertrand, SKIP is Primary Nurse. bm8 22:09 Triage completed. ss 22:23 US Extremity Venous Unilateral Ltd In Process Unspecified. EDMS 22:34 XRAY Chest (1 view) In Process Unspecified. EDMS 22:50 Patient has correct armband on for positive identification. Placed in gown. Bed in low bm8 position. Call light in reach. Side rails up X 1. Client placed on continuous cardiac and pulse oximetry monitoring. NIBP monitoring applied. site monitor on. Pulse ox on. NIBP on. Door closed. Noise minimized. Visitors limited. Warm blanket given. Verbal reassurance given. Head of bed elevated. 22:50 Arm band placed on right wrist. bm8 22:50 Inserted saline lock: 20 gauge in right antecubital area, using aseptic technique. bm8 ,using aseptic technique. with ultrasound Blood collected. O2 via pt above 95 ra. 22:56 CT Abd/Pelvis - IV Contrast Only In Process Unspecified. EDMS 07 00:09 No provider procedures requiring assistance completed. bm8 00:29 US Transvaginal Study (Probe) In Process Unspecified. EDMS 00:49 Rex Loya . ty 00:50 Daughter, Rex Loya, requested phone number to be logged to be notified of any staus ty change. 02:17 Provided Education on: POST ER CARE. bm8 02:23 Brook Haider MD is Referral Physician. sp4 02:27 IV discontinued, intact, bleeding controlled, No redness/swelling at site. Pressure bm8 dressing applied. Administered Medications: 02/03 22:49 Drug: NS 0.9% IV 1000 ml IV at 1000 ml once Route: IV; Rate: 1000 ml; Site: right bm8 antecubital; 02/04 01:54 Follow up: Response: No adverse reaction; IV Status: Completed infusion; IV Intake: bm8 1000ml 02/03 22:49 Drug: Ativan IVP 1 mg IVP once Route: IVP; Site: right antecubital; bm8 02/04 01:54 Follow up: Response: No adverse reaction bm8 02/03 22:49 Not Given (Patient Refused): ondansetron 4 mg IVP once; over 2 minutes bm8 02/04 00:09 Drug: Meclizine PO 25 mg PO once Route: PO; bm8 01:54 Follow up: Response: No adverse reaction bm8 02:09 Drug: Ketorolac IVP 30 mg IVP once Route: IVP; Site: right antecubital; bm8 02:16 Drug: metoCLOPramide IVP 10 mg IVP once; over 1 to 2 minutes Route: IVP; Site: right bm8 antecubital; 02:16 Drug: diphenhydrAMINE IVP 25 mg IVP once Route: IVP; Site: right antecubital; bm8 Medication: 02/03 22:50 VIS not applicable for this client. bm8 Intake: 02/04 01:54 IV: 1000ml; Total: 1000ml. bm8 Outcome: 02:24 Discharge ordered by . sp4 02:27 Discharged to home ambulatory, bm8 02:27 Condition: stable 02:27 Discharge instructions given to patient, family, Instructed on discharge instructions, follow up and referral plans. medication usage, safety practices, Demonstrated understanding of instructions, follow-up care, medications, Prescriptions given X 1, 02:47 Patient left the ED. bm8 Signatures: Dispatcher [employer] EDMS Rylee Lomas, FAC ENGINEER-C FAC ENGINEER-Ckb Gwen Bentley, RN RN ss Sophia Acosta Rebecca rv1 Lenin Gayle MD MD sp4 Saad Comer RN RN tm6 Galen Fried Brad, RN RN bm8
--- NOTE | 2024-02-05 02:25 | EDPHYS ---
Physician Documentation [facility] Name: Marivel Loya Age: 38 yrs Sex: Female : 1985 Arrival Date: 02/04/2024 Time: 21:39 Bed 6 Private MD: ED Physician Lenin Gayle HPI: 02/03 21:59 This 38 yrs old Female presents to ER via Unassigned with complaints of Chest Pain, Leg kb Pain, High Blood Pressure, Nausea/Vomiting. 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 States she hasn't been feeling very well, went to [facility] yesterday and had low potassium. States she took her prescribed potassium pill hours ago. Recently took some milk of mag for constipation. States she started having dizziness shortly after so she checked her BP and it was high. States her BP kept going up so she came here for evaluation. . Historical: - Allergies: 22:09 Morphine; ss - PMHx: 22:09 Anxiety; ss - PSHx: 22:09 Cholecystectomy; Tonsillectomy; ss - Immunization history:: Client reports having NOT received the Covid vaccine. - Infectious Disease History:: Denies. - Social history:: Smoking status: Patient denies any tobacco usage or history of. ROS: 21:53 Constitutional: As per HPI kb Exam: 21:53 Head/Face: Normocephalic, atraumatic. ENT: Moist Mucous membranes Chest/axilla: kb Normal chest wall appearance and motion. Cardiovascular: Regular rate Respiratory: Respirations even and unlabored. No increased work of breathing. Talking in full sentences Skin: Warm, dry with normal turgor. Normal color. MS/ Extremity: Pulses equal, no cyanosis. Neurovascular intact. Full, normal range of motion. Neuro: Awake and alert, GCS 15, oriented to person, place, time, and situation. Moves all extremities. Normal gait. 21:53 Abdomen/GI: Inspection: abdomen appears normal, Bowel sounds: normal, Palpation: moderate abdominal tenderness, in the left upper quadrant and left lower quadrant, 22:54 ECG was reviewed by the Attending Physician. kb Vital Signs: 21:48 BP 93 / 57; Pulse 102; Resp 23; Temp 98.6; Pulse Ox 100% on R/A; Weight 104.33 kg; rv1 Height 5 ft. 3 in. ; Pain 4/10; 22:09 BP 114 / 67; Pulse 102; Resp 20; ss 23:41 BP 106 / 66; Pulse 82; Resp 13; Pulse Ox 100% on R/A; MAP 79 mmHg; bm8 02/04 00:09 BP 110 / 77; Pulse 91; Resp 14; Temp 98.6; Pulse Ox 100% ; Pain 2/10; bm8 01:27 BP 105 / 65; Pulse 83; Pulse Ox 99% on R/A; tm6 02:17 BP 104 / 60; Pulse 80; Resp 16; Temp 98.6; Pulse Ox 100% on R/A; Pain 2/10; bm8 02:46 BP 110 / 72; Pulse 100; Resp 18; Temp 97.5(TE); Pulse Ox 98% on R/A; Pain 0/10; bm8 02/03 21:48 Body Mass Index 40.74 (104.33 kg, 160.02 cm) rv1 02/03 21:48 Pain Scale: Adult rv1 02/04 00:09 Pain Scale: Adult bm8 02:17 Pain Scale: Adult bm8 02:46 Pain Scale: Adult bm8 Rebecca Coma Score: 02/03 22:50 Eye Response: spontaneous(4). Motor Response: obeys commands(6). Verbal Response: bm8 oriented(5). Total: 15. 02/04 00:09 Eye Response: spontaneous(4). Motor Response: obeys commands(6). Verbal Response: bm8 oriented(5). Total: 15. MDM: 02/03 21:42 Patient medically screened. kb 21:53 Data reviewed: vital signs, nurses notes. External Records Reviewed: Outside ED record: kb Labs, CXR and US left lower extremity results from [facility] ER done yesterday all reviewed. Lipase mildly elevated, TSH mildly elevated, hypokalemia. otherwise normal, including d-dimer and troponin. 02/04 00:52 Transition of care: After a detail discussion of the patient's case, care is kb transferred to Lenin Gayle MD. 02:13 ED course: EXAM: CTABDOMEN AND PELVIS WITH CONTRAST DATE: 02/04/2024 9:51 PM CDT sp4 INDICATION: 38-year-old female with abdominal pain. COMPARISON: None. TECHNIQUE: Volumetric CT of the abdomen and pelvis acquired following the intravenous administration of contrast. Axial, coronal and sagittal images are provided. The study was performed using dose reduction techniques including automated exposure control and/or adjustment of the MA and/or KV according to patient size, and/or iterative reconstruction techniques. Study limited due to motion artifact. FINDINGS: Division Manager/Lines, tubes and hardware: Post cholecystectomy clips within gallbladder fossa. Lower thorax: No consolidation or pleural effusion Liver: Partially visualized liver demonstrates no focal lesion. Dome of the liver extends off the superior imaged field of view. Biliary tree: No intra- or extrahepatic bile duct dilation. Gallbladder: Status post cholecystectomy. Pancreas: No pancreatic lesion.. Spleen: No splenic lesion. Adrenals: No adrenal gland lesion. Kidneys and ureters: No renal lesion, nephrolithiasis, or hydronephrosis. Bladder/reproductive organs: 7.2 x 5.8 x 5.4 cm fluid attenuation right ovarian/adnexal nonspecific cystic lesion. Small amount of free pelvic fluid, including cul-de-sac and periuterine region. Gastrointestinal tract: Lower esophagus/stomach: Small hiatal hernia. Small bowel: No acute abnormality.. Colon: Colon contains fluid which can be seen with diarrheal illness. Left hemicolon is decompressed. Appendix: Normal caliber appendix. Peritoneum, mesentery and retroperitoneum: No free air, ascites or loculated fluid. Lymph nodes: No pathologic adenopathy based on size criteria. Vasculature: Aorta and branches: Aorta has a normal diameter. Bones: Degenerative changes, including mild multilevel spondylosis. Soft tissues: Mild bilateral subcutaneous tissue stranding which can be seen with edema and/or fibrosis. Minimal posterior midline subcutaneous tissue edema. IMPRESSION: 1. Right ovarian/adnexal 7.2 cm cystic lesion. Small amount of free pelvic fluid. Correlation with pelvic sonography suggested. . 02:14 ED course: EXAM: US Pelvis Transabdominal and Transvaginal, Complete CLINICAL HISTORY: sp4 ABD PAIN TECHNIQUE: Real-time complete transabdominal and transvaginal pelvic ultrasound with image documentation. Transvaginal imaging was used for better evaluation of the endometrium and adnexa. COMPARISON: Abdomen pelvis CT dated 02/04/2024 FINDINGS: Uterus/cervix: The uterus is anteverted and measures 11.2 x 4.9 x 7.4 cm. The endometrial stripe measures 14 mm in thickness. No myometrial mass. Right ovary: The right ovary measures 7.8 x 4.4 x 6 cm and is expanded by a 7.1 x 3.9 x 5.2 cm predominantly anechoic cyst. There is eccentric echogenic component with questionable vascularity. Normal blood flow within the right ovary. Left ovary: The left ovary is not visualized. Free fluid: Small amount of free fluid in the cul-de-sac. Bladder: Unremarkable as visualized. Wall is normal thickness for degree of distention. IMPRESSION: 7.1 cm right ovarian cyst with a complex component potentially related to hemorrhagic cyst. Questionable vascularity/solid component. Nonemergent MR is recommended for further characterization.. 02:44 Differential diagnosis: acute pericarditis, anxiety, coronary artery disease chest wall sp4 pain, costochondritis, esophagitis. HEART Score: History: Slightly Suspicious (0), ECG: Normal (0), Age: < or = 45 years (0), Risk Factors: No Risk Factors Known (0), Troponin: < or = 1 x Normal Limit (0), Total Score = 0. ED course: EXAM DESCRIPTION: RAD - Chest Single View - 02/04/2024 10:32 pm CLINICAL HISTORY: Dyspnea;Palpitations Chest pain. COMPARISON: Chest Single View dated 10/07/2022; Abdomen 1 View (KUB) dated 12/29/2021; Chest Single View dated 11/29/2021; Chest Single View dated 11/24/2021 FINDINGS: Portable technique limits examination quality. The lungs are grossly clear. The heart is normal in size. No displaced fractures. IMPRESSION: No acute intrathoracic process suspected. . 02:44 ED course: EXAM DESCRIPTION: US - Extremity Venous Uni Ltd - 02/04/2024 10:21 pm sp4 CLINICAL HISTORY: PAIN Leg swelling and edema. COMPARISON: FINDINGS: Right lower extremity venous system was interrogated with Doppler technique. Normal flow, compressibility and augmentation was noted. There is no DVT present. IMPRESSION: No evidence of right lower extremity deep venous thrombosis.. 02/03 21:47 Order name: Basic Metabolic Panel kb 02/03 21:47 Order name: CBC with Diff; Complete Time: 23:16 kb 02/03 21:47 Order name: D-Dimer; Complete Time: 23:16 kb 02/03 21:47 Order name: LFT's kb 02/03 21:47 Order name: Magnesium kb 02/03 21:47 Order name: NT PRO-BNP kb 02/03 21:47 Order name: Troponin HS kb 02/03 22:56 Order name: Lipase EDMS 02/03 21:47 Order name: XRAY Chest (1 view); Complete Time: 22:40 kb 02/03 21:51 Order name: CT Abd/Pelvis - IV Contrast Only kb 02/03 21:58 Order name: US Extremity Venous Unilateral Ltd; Complete Time: 22:32 kb 02/03 23:53 Order name: US Transvaginal Study (Probe) kb 02/03 21:47 Order name: Cardiac monitoring; Complete Time: 22:49 kb 02/03 21:47 Order name: EKG - Nurse/Tech; Complete Time: 22:49 kb 02/03 21:47 Order name: IV Saline Lock; Complete Time: 22:49 kb 02/03 21:47 Order name: Labs collected and sent; Complete Time: 22:49 kb 02/03 21:47 Order name: O2 Per Protocol; Complete Time: 22:49 kb 02/03 21:47 Order name: O2 Sat Monitoring; Complete Time: 22:49 kb EC/30 22:54 Rate is 97 beats/min. Rhythm is regular. QRS Paola is Normal. MA interval is normal at kb 166 msec. QRS interval is normal at 86 msec. QT interval is normal at 431 msec. Administered Medications: 22:49 Drug: NS 0.9% IV 1000 ml IV at 1000 ml once Route: IV; Rate: 1000 ml; Site: right 8 antecubital; 02/04 01:54 Follow up: Response: No adverse reaction; IV Status: Completed infusion; IV Intake: bm8 1000ml 02/03 22:49 Drug: Ativan IVP 1 mg IVP once Route: IVP; Site: right antecubital; [facility] 02/04 01:54 Follow up: Response: No adverse reaction [facility] 02/03 22:49 Not Given (Patient Refused): ondansetron 4 mg IVP once; over 2 minutes 8 02/04 00:09 Drug: Meclizine PO 25 mg PO once Route: PO; 8 01:54 Follow up: Response: No adverse reaction 8 02:09 Drug: Ketorolac IVP 30 mg IVP once Route: IVP; Site: right antecubital; bm8 02:16 Drug: metoCLOPramide IVP 10 mg IVP once; over 1 to 2 minutes Route: IVP; Site: right bm8 antecubital; 02:16 Drug: diphenhydrAMINE IVP 25 mg IVP once Route: IVP; Site: right antecubital; bm8 Disposition: 02:22 Co-signature as Attending Physician, Lenin Gayle MD I agree with the assessment sp4 and plan of care. I reviewed the patient's care provided by Advanced Practice Provider \T\ agree w/ the diagnosis \T\ care plan. I personally saw the pt \T\ performed a substantive portion of the visit, incldng all aspects of the (History/Exam/Medical Decision Making). Disposition Summary: 02/05/24 02:24 Discharge Ordered Notes: Location: Home sp4 Problem: new sp4 Symptoms: have improved sp4 Condition: Stable sp4 Diagnosis - hemorrhagic ovarian complex cyst , acute panic attack, elevated blood pressure, sp4 anxiety disorder Followup: sp4 - With: Brook Haider MD - When: 7 - 10 days - Reason: Recheck today's complaints Discharge Instructions: - Discharge Summary Sheet sp4 - Ovarian Cyst, Oncz-ge-Sasa sp4 - Panic Attack, [id number] sp4 Forms: - Patient Portal Instructions sp4 Prescriptions: - Valium 5 mg Oral Tablet - take 1 tablet ORAL route every 8 hours As needed; 20 tablet; Refills: 0, sp4 Product Selection Permitted Signatures: Dispatcher [employer] EDRylee Macdonald FNP-Trina HENDERSONP-Gwen Dixon, RN RN Lenin Gayle MD MD sp4 Bartolome Bertrand RN RN bm8 Corrections: (The following items were deleted from the chart) 02/03 21:48 21:48 Chest Single View+RAD.RAD.BRZ ordered. EDMS EDMS 22:56 21:52 LIPASE+C.LAB.BRZ ordered. EDMS EDMS
[2024-02-05 03:14] VITALS: BP 110/72; TEMP 98.6; O2SAT 98
[2024-02-05 03:29] LABS: Troponin High Sensitivity 3.6 pg/mL (<58.9)
--- NOTE | 2024-02-05 11:04 | RAD REPORT ---
EXAM DESCRIPTION: US - Transvaginal Study Probe - 02/05/2024 12:27 am CLINICAL HISTORY: ABD PAIN TECHNIQUE: Real-time complete transabdominal and transvaginal pelvic ultrasound with image documenta tion. Transvaginal imaging was used for better evaluation of the endometrium and adnexa. COMPARISON: Abdomen pelvis CT dated 02/04/2024 FINDINGS: Uterus/cervix: The uterus is anteverted and measures 11.2 x 4.9 x 7.4 cm. The endometr ial stripe measures 14 mm in thickness. No myometrial mass. Right ovary: The right ovary measures 7.8 x 4.4 x 6 cm and is expanded by a 7.1 x 3.9 x 5.2 cm pred ominantly anechoic cyst. There is eccentric echogenic component with questionable vascularity. Normal blood flow within the right ovary. Left ovary: The left ovary is not visualized. Free fluid: Small amount of free fluid in the cul-de-sac. Bladder: Unremarkable as visualized. Wall is normal thickness for degree of distention. IMPRESSION: 7.1 cm right ovarian cyst with a complex component potentially related to hemorrhagic cy st. Questionable vascularity/solid component. Nonemergent MR is recommended for further characterizat ion. Electronically signed by: Valerie Petty MD 02/05/2024 12:59 AM CDT Due to temporary technical issues with the PACS/Fluency reporting system, reports are being signed by the in house radiologist without review as a courtesy to ensure prompt reporting. The interpreting r adiologist is fully responsible for the content of the report.
--- NOTE | 2024-02-05 11:38 | RAD REPORT ---
EXAM DESCRIPTION: CT - Abdomen Pelvis W Contrast - 02/05/2024 6:59 am DATE: 02/04/2024 9:51 PM CDT CLINICAL HISTORY: 38-year-old female with abdominal pain. COMPARISON: None. TECHNIQUE: Volumetric CT of the abdomen and pelvis acquired following the intravenous administration of contrast. Axial, coronal and sagittal images are provided. The study was performed using dose red uction techniques including automated exposure control and/or adjustment of the MA and/or KV accordin g to patient size, and/or iterative reconstruction techniques. Study limited due to motion artifact. 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 Lower thorax: No consolidation or pleural effusion Liver: Partially visualized liver demonstrates no focal lesion. Dome of the liver extends off the sup erior imaged field of view. Biliary tree: No intra- or extrahepatic bile duct dilation. Gallbladder: Status post cholecystectomy. Pancreas: No pancreatic lesion.. Spleen: No splenic lesion. Adrenals: No adrenal gland lesion. Kidneys and ureters: No renal lesion, nephrolithiasis, or hydronephrosis. Bladder/reproductive organs: 7.2 x 5.8 x 5.4 cm fluid attenuation right ovarian/adnexal nonspecific c ystic lesion. Small amount of free pelvic fluid, including cul-de-sac and periuterine region. Gastrointestinal tract: Lower esophagus/stomach: Small hiatal hernia. Small bowel: No acute abnormality.. Colon: Colon contains fluid which can be seen with diarrheal illness. Left hemicolon is decompressed. Appendix: Normal caliber appendix. Peritoneum, mesentery and retroperitoneum: No free air, ascites or loculated fluid. Lymph nodes: No pathologic adenopathy based on size criteria. Vasculature: Aorta and branches: Aorta has a normal diameter. IVC and veins: IVC has a normal diameter Bones: Degenerative changes, including mild multilevel spondylosis. Soft tissues: Mild bilateral subcutaneous tissue stranding which can be seen with edema and/or fibros is. Minimal posterior midline subcutaneous tissue edema. IMPRESSION: 1. Right ovarian/adnexal 7.2 cm cystic lesion. Small amount of free pelvic fluid. Paul elation with pelvic sonography suggested. Electronically signed by: Vladimir Pandey MD 02/04/2024 11:46 PM CDT RP Due to temporary technical issues with the PACS/Fluency reporting system, reports are being signed by the in house radiologist without review as a courtesy to ensure prompt reporting. The interpreting r adiologist is fully responsible for the content of the report.
--- NOTE | 2024-02-05 14:14 | EKG ---
Test Date: 2024-02-04 Test Time: 22:11:06 Clinical Trial Associate: HIEN MEASUREMENT RESULTS: Intervals: Rate: 97 NE: 166 QRSD: 86 QT: 340 QTc: 431 [place]: P: 61 NE: 166 QRS: 1 T: 42 INTERPRETIVE STATEMENTS: Sinus rhythm with occasional premature ventricular complexes Low voltage QRS Borderline ECG Compared to ECG 10/07/2022 00:49:41 Ventricular premature complex(es) now present Low QRS voltage now present Electronically Signed On 02-05-24 14:12:58 CDT by Robert Pérez
== END 2024-02-05 02:47 | disposition home or self-care (01) ==
LOC: ER 21:39
DX: F41.0 Panic disorder [episodic paroxysmal anxiety] (principal); R03.0 Elevated blood-pressure reading, without diagnosis of hypertension; F41.9 Anxiety disorder, unspecified; N83.209 Unspecified ovarian cyst, unspecified side
CPT/HCPCS: 36415; 71045; 74177; 76830; 80048; 80076; 83690; 83735; 83880; 84484; 85025; 85379; 93005; 93971; 96361; 96374; 96375; 99285; J1200; J2405; J2765; J7030; J8597; Q9967

== ENCOUNTER 2024-09-05 01:58 | Emergency (ER) | payer MEDICARE, OTHER, SELFPAY ==
--- OUTSIDE RECORDS SUMMARY | 2024-09-05 02:04 | XMS REPORT | Continuity of Care Document ---
Author Name Unknown Address [address] [facility] [address] [place] [address] [facility] Address [address] [facility]. 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 Phone BRO SOLIS Primary Care Physician Unavailab ONEIL Thurston Attending Clinician Unavailable JANE HART Attending Clinician Unavailable JANE HART Attending Clinician Unavailable Jane Hart NP Attending Clinician [phone] ELIEL GUTIERREZ Attending Clinician Unavaila ELIEL Mckeon Attending Clinician Unavaila LIONEL Anthony Attending Clinician Unavailable LIONEL KHOURY Attending Clinician Unavailable JEANINE MART Attending Clinician Unavailab JEANINE El Attending Clinician Unavailab Jeanine Meneses Attending Clinician [phone] RAFAEL ALANIZ Attending Clinician Unavailable RAFAEL ALANIZ Attending Clinician Unavailable Rafael Alaniz DO Attending Clinician [phone] MOUSTAPHA MAGANA Attending Clinician Unavailable MOUSTAPHA MAGANA Attending Clinician Unavailable Moustapha Magana MD Attending Clinician [phone], [facility] Attending Clinician Unavailable Doctor Unassigned, Tripp Attending Clinician U navailable RADHA LAZCANO Attending Clinician Unavailable RADHA LAZCANO Attending Clinician Unavailable ESPERANZA FRANZ Attending Clinician Unavaila ESPERANZA Oscar Attending Clinician Unavaila ble ZAIN, QIANGJUN Attending Clinician Unavailable Mirlande Agee Attending Clinician [phone] Eleazar Rodrigues Attending Clinician [phone] Alanna Acosta MD Attending Clinician [phone] MIRLANDE RUBIO Attending Clinician Unavailable ELEAZAR PUGA Attending Clinician Unavailable RICCO BANKS Attending Clinician Unavailabl RICCO Stubbs Attending Clinician Unavailabl e FLORENCE COKER Attending Clinician Unavailable Lab, Ang - Db Attending Clinician Unavailable KAYCEE DIANA Attending Clinician Unavailable Kaycee Diana MD Attending Clinician [phone] Mary Krishna MD Attending Clinician [phone] [facility] Attending Clinician Unavaila katie Franz MD, Esperanza Darby Attending Clinician + [phone] ALONDRA AVINA Attending Clinician Unavailable SAMSON WALKER Attending Clinician Unavailable Samson Walker MD Attending Clinician [phone] Only, [facility] Test Attending Clinician Unavailable Izabela Dukes Attending Clinician + [phone] CHRISTOPHE SÁNCHEZ Attending Clinician Unavailable Christophe Winkler Attending Clinician [phone] Edgar Dotson MD Attending Clinician [phone] Yesenia Feliz RN Attending Clinician Unavailable Room, [facility] Attending Clinician Unavailable 1, [facility] Attending Clinician Unavailable Ultrasound, [facility] Attending Clinician UnavailToshia Gallo MD Attending Clinician [phone] TOSHIA BARAJAS Attending Clinician Unavailable TOSHIA BARAJAS Attending Clinician Unavailable 2, [facility] Attending Clinician Unavailable Nurse, [facility] Attending Clinician Un available Columba Dill PA-C Attending Clinician [phone] Ultrasound, [facility] Attending Clinician UnavailMax Denis MD Attending Clinician [phone] MAX SEAY Attending Clinician Unavailabl e MOUSTAPHA MAGANA Admitting Clinician Unavailable MOUSTAPHA MAGANA Admitting Clinician Unavailable RADHA LAZCANO Admitting Clinician Unavailable KAYCEE DIANA Admitting Clinician Unavailable MARY KRISHNA Admitting Clinician Unavailable Payers Payer Name Policy Type Policy Number Effective Date Expirati on Date Source [facility] MEDICAID [id number] 2021 00:00:00 [facility] BCBS BLUE ADVANTAGE O [id number] 2024 00:00:00 MEDICAID [place] [id number] 2022 00:00:00 Problems Condition Name Condition Details Condition Category Status Onset Date Resolution Date Last Treatment Date Treating Clinician Comments Source Right ovarian cyst Right ovarian cyst Disease Active 03-11 00:00: 00 [facility] Morbid obesity with body mass index of 40.0-49.9 Morbid obesity with body mass index of 40.0-49.9 Disease Active 01-28 00:00: 00 [facility] History of hypothyroi dism History of hypothyroi dism Disease Active 01-28 00:00: 00 [facility] 38 weeks gestation of 38 weeks gestation of Disease Resolve d 08-15 00:00: 00 2024-01-05 00:00:00 2024-01-05 10:58:14 [facility] Hyponatrem ia Hyponatrem ia Disease Resolve d 08-15 00:00: 00 2024-01-05 00:00:00 2024-01-05 10:58:15 [facility] Acute cystitis without hematuria Acute cystitis without hematuria Disease Resolve d 08-15 00:00: 00 2024-01-05 00:00:00 2024-01-05 10:58:16 [facility] Liveborn infant, of causey , born in hospital by vaginal delivery Liveborn , of [place] , born in hospital by vaginal delivery Disease Resolve d 08-15 00:00: 00 2024-01-05 00:00:00 2024-01-05 10:58:18 [facility] Hemorrhoid s, unspecifie d hemorrhoid type Hemorrhoid s, unspecifie d hemorrhoid type Disease Resolve d 2020-08 00:00: 00 2024-01-05 00:00:00 2024-01-05 10:58:09 [facility] Leg swelling in in third trimester Leg swelling in in third trimester Disease Resolve d 2020- 2-29 00:00: 00 2024-01-05 00:00:00 2024-01-05 10:58:10 [facility] Itching Itching Disease Resolve d 2020- 2-29 00:00: 00 2024-01-05 00:00:00 2024-01-05 10:58:11 [facility] Low back pain during in third trimester Low back pain during in third trimester Disease Resolve d 2020- 2-29 00:00: 00 2024-01-05 00:00:00 2024-01-05 10:58:12 [facility] Cough Cough Disease Resolve d 2020-08 2-29 00:00: 00 2024-01-05 00:00:00 2024-01-05 10:58:13 [facility] History of depression , currently History of depression , currently Disease Resolve d 2020-08 1-23 00:00: 00 2024-01-05 00:00:00 2024-01-05 10:58:08 [facility] Gastroesop hageal reflux disease without esophagiti s Gastroesop hageal reflux disease without esophagiti s Disease Resolve d 2020-0 9-20 00:00: 00 2024-01-05 00:00:00 2024-01-05 10:58:02 [facility] SHANTE (stress urinary incontinen ce, female) SHANTE (stress urinary incontinen ce, female) Disease Resolve d 2020-0 9-20 00:00: 00 2024-01-05 00:00:00 2024-01-05 10:58:24 [facility] High-risk in third trimester High-risk in third trimester Disease Resolve d 2020-0 6-24 00:00: 00 2024-01-05 00:00:00 2024-01-05 10:58:22 [facility] Low serum vitamin D Low serum vitamin D Disease Resolve d 2021-0 6-24 00:00: 00 2024-01-05 00:00:00 2024-01-05 10:58:20 [facility] Normal labor Normal labor Disease Resolve d 08-15 00:00: 00 2022-04-22 00:00:00 2022-04-22 14:20:40 [facility] Allergies, Adverse Reactions, Alerts Allergy Name Allergy Type Status Severity Reaction(s) Onset Date Inactive Date Treating Clinician Comments Source MORPHINE SULFATE DRUG INGREDI Active Unknown-Cmnt 05-02 00:00: 00 [facility] Morphine Sulfate Drug Allergy Active Unknown - See comments 05-02 00:00: 00 [facility] MORPHINE DRUG INGREDI Active Hives 01-28 00:00: 00 [facility] Morphine Propensi ty to adverse reaction s Active Hives 01-28 00:00: 00 Seizures [facility] Social History Social Habit Start Date Stop Date Quantity Comments Source Gender identity [facility] Sexual orientation [facility] ASSERTION [facility] Alcoholic beverage intake 2024-03-22 00:00:00 2024-03-22 00:00:00 Lifetime non-drinker (finding) [facility] History of Social function 2024-01-05 00:00:00 2024-01-05 00:00:00 [facility] Alcohol intake 2023-05-03 00:00:00 2023-05-03 00:00:00 Lifetime non-drinker (finding) [facility] Exposure to SARS-CoV-2 (event) 2022-11-13 00:00:00 2022-11-23 09:05:00 Not sure [facility] Tobacco use and exposure 2022-03-16 00:00:00 2022-03-16 00:00:00 Smokeless tobacco non-user [facility] Sex assigned at 1985 00:00:00 1985 00:00:00 [facility] Smoking Status Start Date Stop Date Source Never smoked tobacco [facility] Medications Ordered Medication Name Filled Medication Name Start Date Stop Date Current Medication? Ordering Clinician Indication Dosage Frequency Signature (SIG) Comments Components Source tetracaine (PONTOCAINE ) 0.5 % ophthalmic drops 2 Drop 2023-08 22:30: 00 07-07 21:54 :00 No 2[drp] 2 Drop, Right Eye, ONCE, 1 dose, On 07/07/24 at 1630, CELINA [facility] traMADoL 50 mg tablet 2023-08 00:00: 00 07-15 05:59 :00 Yes [id number] 50mg Take 1 tablet by mouth every 6 (six) hours as needed for Pain (scale 7-10) or Pain (scale 4-6) for up to 7 days. Indication s: acute pain [facility] erythromyci n 5 mg/gram (0.5 %) ophthalmic ointment 2023-08 00:00: 00 07-13 05:59 :00 Yes [id number] .5[in_u s] Place 0.5 Inches in right eye in the morning and 0.5 Inches in the evening. Do all this for 5 days. Continue until you follow up with eye doctor. [facility] ketorolac 0.4 % ophthalmic solution 2023-08 00:00: 00 07-13 05:59 :00 Yes [id number] 1[drp] Place 1 Drop in right eye 4 (four) times daily for 5 days. [facility] NaCl 0.9% (NS) bolus infusion 1,000 mL 04-02 01:00: 00 04-02 02:36 :00 No 1000mL at 999 mL/hr, 1,000 mL, IV Infusion, ONCE, 1 dose, On Mon04/01/24 at 2000, STAT [facility] diphenhydrA MINE (BENADRYL) injection 25 mg 04-02 01:00: 00 04-02 01:20 :00 No 25mg 25 mg, Slow IV Push, ONCE, 1 dose, On Mon04/01/24 at 2000, STAT [facility] famotidine (PEPCID (PF)) injection 20 mg 04-02 01:00: 00 04-02 01:28 :00 No 20mg 20 mg, Slow IV Push, ONCE, 1 dose, On Mon04/01/24 at 2000, CELINA [facility] dexamethaso ne sod phos PF injection 10 mg 04-02 01:00: 00 04-02 01:22 :00 No 10mg 10 mg, Slow IV Push, ONCE, 1 dose, On Mon04/01/24 at 2000, 1 mL [facility] predniSONE 20 mg tablet 04-01 00:00: 00 04-17 04:59 :00 No [id number] Take 2 tablets by mouth daily for 5 days, THEN 1 tablet daily for 5 days, THEN 0.5 tablets daily for 5 days. [facility] famotidine 20 mg tablet 04-01 00:00: 00 04-16 04:59 :00 No [id number] 20mg Take 1 tablet by mouth in the morning and 1 tablet in the evening. Do all this for 14 days. [facility] dexamethaso ne sod phos PF injection 10 mg 03-23 01:15: 00 03-23 01:05 :00 No 10mg 10 mg, Intramuscu lar, ONCE, 1 dose, On Mon03/22/24 at 2015, 1 mL [facility] hydrOXYzine (ATARAX) tablet 25 mg 03-23 00:15: 00 03-23 00:13 :00 No 25mg 25 mg, Oral, ONCE, 1 dose, On Mon03/22/24 at 1915, CELINA [facility] hydrOXYzine 10 mg tablet 03-22 00:00: 00 Yes [id number] 10mg Take 1 tablet by mouth every 6 (six) hours. [facility] KCL (KLOR-CON M20) tablet 40 mEq 02-02 03:30: 00 02-02 02:54 :00 No 40meq 40 mEq, Oral, ONCE, 1 dose, On Mon02/02/24 at 2230, Routine [facility] KCL 20 mEq tablet 02-01 00:00: 00 07-07 00:00 :00 No [id number] 20meq Take 1 tablet by mouth in the morning. [facility] metroNIDAZO LE (FLAGYL) 500 mg tablet 603 00:00: 00 03-11 00:00 :00 No [id number] 500mg Take 1 tablet by mouth every 12 (twelve) hours. [facility] semaglutide 0.25 mg or 0.5 mg (2 mg/3 mL) PnIj 01-04 10:25: 49 07-07 00:00 :00 No inject under the skin. [facility] fluconazole 150 mg tablet 01-04 00:00: 00 01-05 04:59 :00 No [id number] 150mg Take 1 tablet by mouth once now for 1 dose. [facility] cyclobenzap rine 10 mg tablet 11-15 00:00: 00 07-07 00:00 :00 No 10mg Take 1 tablet by mouth in the morning and 1 tablet at noon and 1 tablet in the evening. [facility] diclofenac 50 mg EC tablet 11-15 00:00: 00 07-07 00:00 :00 No TAKE 1 TABLET BY MOUTH TWICE DAILY NEEDED FOR PAIN [facility] ipratropium 42 mcg (0.06 %) nasal spray 11-15 00:00: 00 07-07 00:00 :00 No USE 2 SPRAYS IN EACH NOSTRIL THREE TIMES DAILY NEEDED FOR RUNNY NOSE [facility] predniSONE 10 mg tablet 11-15 00:00: 00 07-07 00:00 :00 No 10mg Take 1 tablet by mouth in the morning and 1 tablet in the evening. [facility] azithromyci n 250 mg tablet 11-15 00:00: 00 03-11 00:00 :00 No [facility] bromphenira mine-pseudo ephedrine-D M 2-30-10 mg/5 mL syrup 4-11 00:00: 00 02-01 00:00 :00 No TAKE 10 ML BY MOUTH EVERY 4 HOURS NEEDED [facility] fluconazole (DIFLUCAN) 150 mg tablet 05-05 00:00: 00 05-06 04:59 :00 No [id number] 150mg Take 1 tablet by mouth once now for 1 dose. [facility] clonazePAM 0.5 mg tablet 05-02 14:24: 35 07-07 00:00 :00 No 1 tablet at bedtime Orally Once a day [facility] iopamidol (ISOVUE 370-500 mL) injection 70 mL 03-29 00:25: 00 03-29 00:45 :00 No [id number] 70mL 70 mL, Intravenou s, ONCE, 1 dose, On Mon03/28/23 at 1945, Routine [facility] methocarbam oL 750 mg tablet 03-28 00:00: 00 07-07 00:00 :00 No [id number] 750mg Take 1 tablet by mouth 4 (four) times daily. [facility] naproxen 500 mg tablet 03-28 00:00: 00 04-08 04:59 :00 No [id number] 500mg Take 1 tablet by mouth in the morning and 1 tablet in the evening. Take with meals. Do all this for 10 days. [facility] SERTraline (ZOLOFT) 50 mg tablet 01-23 00:00: 00 Yes [id number] 50mg Take 1 tablet by mouth at bedtime. [facility] SERTraline (ZOLOFT) 50 mg tablet 11-21 00:00: 00 01-23 00:00 :00 No [id number] 50mg Take 1 tablet by mouth at bedtime. [facility] busPIRone 10 mg tablet 17 00:00: 00 01-06 04:59 :00 No [id number] 10mg Take 1 tablet by mouth 2 (two) times daily as needed for Other (anxiety) for up to 45 days. [facility] clonazePAM 0.5 mg tablet 2 16:56: 00 09-13 00:00 :00 No .5mg Take 0.5 mg by mouth as needed. [facility] escitalopra m oxalate (LEXAPRO) 20 mg tablet 09-13 00:00: 00 11-21 00:00 :00 No [id number] 20mg Take 1 tablet by mouth in the morning. [facility] busPIRone 10 mg tablet 09-13 00:00: 00 10-29 04:59 :00 No [id number] 10mg Take 1 tablet by mouth 2 (two) times daily as needed for Pain (scale 7-10) for up to 45 days. [facility] SERTraline 25 mg tablet 04-22 14:09: 40 04-22 00:00 :00 No 25mg Take 25 mg by mouth daily. [facility] vit calc,iron,f olic ( VITAMIN ORAL) 04-22 14:09: 31 04-22 00:00 :00 No Take by mouth. [facility] ferrous sulfate (IRON ORAL) 04-22 14:09: 09 04-22 00:00 :00 No Take by mouth. [facility] clonazePAM 0.5 mg tablet 5-04 22:29: 55 Yes .5mg Take 0.5 mg by mouth as needed. [facility] acetaminoph en-caff-but albital (ESGIC) per capsule 1-12 00:00: 00 04-22 00:00 :00 No [id number] 1{capsu le} Take 1 capsule by mouth every 4 (four) hours as needed (headache) . [facility] cyclobenzap rine 10 mg tablet 1-12 00:00: 00 04-22 00:00 :00 No [id number] 10mg Take 1 tablet by mouth 3 (three) times daily. [facility] vitamin w/FA tablet 1-10 00:00: 00 04-22 00:00 :00 No [id number] 102 1{tbl} Take 1 tablet by mouth daily. [facility] docusate calcium 240 mg capsule 1-10 00:00: 00 04-22 00:00 :00 No [id number] 102 240mg Take 1 capsule by mouth once daily as needed for Constipati on. [facility] ferrous sulfate 325 mg (65 mg iron) tablet 1-10 00:00: 00 04-22 00:00 :00 No [id number] 102 325mg Take 1 tablet by mouth 2 (two) times daily. [facility] ibuprofen 600 mg tablet 1-10 00:00: 00 04-22 00:00 :00 No [id number] 102 600mg Take 1 tablet by mouth every 6 (six) hours as needed (Pain). Take with food or milk. [facility] vitamin w/FA tablet 1-10 00:00: 00 04-22 00:00 :00 No [id number] 102 1{tbl} Take 1 tablet by mouth daily. [facility] metoclopram frank HCl 10 mg tablet 2020-08 2-07 00:00: 00 08-24 00:00 :00 No [id number] 10mg Take 1 tablet by mouth every 6 (six) hours as needed for Nausea and Vomiting (N/V) or Gastroesop hageal reflux. [facility] omeprazole 40 mg capsule 2020-08 0-14 00:00: 00 04-22 00:00 :00 No [id number] 40mg Take 1 capsule by mouth daily. [facility] famotidine 20 mg tablet 9-20 00:00: 00 04-22 00:00 :00 No [id number] 20mg Take 1 tablet by mouth 2 (two) times daily. [facility] Immunizations Ordered Immunization Name Filled Immunization Name Date Status Comments Source Rho (d) Immune Globulin 2021-08-16 00:00:00 Completed [facility] Rho (d) Immune Globulin 2021-08-16 00:00:00 Completed [facility] Rho (d) Immune Globulin 2021-08-16 00:00:00 Completed [facility] Rho (d) Immune Globulin 2021-08-16 00:00:00 Completed [facility] Rho (d) Immune Globulin 2021-08-16 00:00:00 Completed [facility] Rho (d) Immune Globulin 2021-08-16 00:00:00 Completed [facility] Rho (d) Immune Globulin 2021-08-16 00:00:00 Completed [facility] Rho (d) Immune Globulin 2021-08-16 00:00:00 Completed [facility] Rho (d) Immune Globulin 2021-08-16 00:00:00 Completed [facility] Rho (d) Immune Globulin 2021-08-16 00:00:00 Completed [facility] Rho (d) Immune Globulin 2021-08-16 00:00:00 Completed [facility] Rho (d) Immune Globulin 2021-08-16 00:00:00 Completed [facility] Rho (d) Immune Globulin 2021-08-16 00:00:00 Completed [facility] Rho (d) Immune Globulin 2021-08-16 00:00:00 Completed [facility] Rho (d) Immune Globulin 2021-08-16 00:00:00 Completed [facility] Rho (d) Immune Globulin 2021-08-16 00:00:00 Completed [facility] Rho (d) Immune Globulin 2021-08-16 00:00:00 Completed [facility] Rho (d) Immune Globulin 2021-08-16 00:00:00 Completed [facility] Rho (d) Immune Globulin 2021-08-16 00:00:00 Completed [facility] Rho (d) Immune Globulin 2021-08-16 00:00:00 Completed [facility] Rho (d) Immune Globulin 2021-08-16 00:00:00 Completed [facility] Rho (d) Immune Globulin 2021-08-16 00:00:00 Completed [facility] TDAP 2021-06-29 00:00:00 Completed [facility] TDAP 2021-06-29 00:00:00 Completed [facility] TDAP 2021-06-29 00:00:00 Completed [facility] TDAP 2021-06-29 00:00:00 Completed [facility] TDAP 2021-06-29 00:00:00 Completed [facility] TDAP 2021-06-29 00:00:00 Completed [facility] TDAP 2021-06-29 00:00:00 Completed [facility] TDAP 2021-06-29 00:00:00 Completed [facility] TDAP 2021-06-29 00:00:00 Completed [facility] TDAP 2021-06-29 00:00:00 Completed [facility] TDAP 2021-06-29 00:00:00 Completed [facility] TDAP 2021-06-29 00:00:00 Completed [facility] TDAP 2021-06-29 00:00:00 Completed [facility] TDAP 2021-06-29 00:00:00 Completed [facility] TDAP 2021-06-29 00:00:00 Completed [facility] TDAP 2021-06-29 00:00:00 Completed [facility] TDAP 2021-06-29 00:00:00 Completed [facility] TDAP 2021-06-29 00:00:00 Completed [facility] TDAP 2021-06-29 00:00:00 Completed [facility] TDAP 2021-06-29 00:00:00 Completed [facility] TDAP 2021-06-29 00:00:00 Completed [facility] TDAP 2021-06-29 00:00:00 Completed [facility] Rho (d) Immune Globulin 2021-06-08 00:00:00 Completed [facility] Rho (d) Immune Globulin 2021-06-08 00:00:00 Completed [facility] Rho (d) Immune Globulin 2021-06-08 00:00:00 Completed [facility] Rho (d) Immune Globulin 2021-06-08 00:00:00 Completed [facility] Rho (d) Immune Globulin 2021-06-08 00:00:00 Completed [facility] Rho (d) Immune Globulin 2021-06-08 00:00:00 Completed [facility] Rho (d) Immune Globulin 2021-06-08 00:00:00 Completed [facility] Rho (d) Immune Globulin 2021-06-08 00:00:00 Completed [facility] Rho (d) Immune Globulin 2021-06-08 00:00:00 Completed [facility] Rho (d) Immune Globulin 2021-06-08 00:00:00 Completed [facility] Rho (d) Immune Globulin 2021-06-08 00:00:00 Completed [facility] Rho (d) Immune Globulin 2021-06-08 00:00:00 Completed [facility] Rho (d) Immune Globulin 2021-06-08 00:00:00 Completed [facility] Rho (d) Immune Globulin 2021-06-08 00:00:00 Completed [facility] Rho (d) Immune Globulin 2021-06-08 00:00:00 Completed [facility] Rho (d) Immune Globulin 2021-06-08 00:00:00 Completed [facility] Rho (d) Immune Globulin 2021-06-08 00:00:00 Completed [facility] Rho (d) Immune Globulin 2021-06-08 00:00:00 Completed [facility] Rho (d) Immune Globulin 2021-06-08 00:00:00 Completed [facility] Rho (d) Immune Globulin 2021-06-08 00:00:00 Completed [facility] Rho (d) Immune Globulin 2021-06-08 00:00:00 Completed [facility] Rho (d) Immune Globulin 2021-06-08 00:00:00 Completed [facility] Rho (d) Immune Globulin Unknown Completed [facility] TDAP Unknown Completed [facility] Rho (d) Immune Globulin Unknown Completed [facility] TDAP Unknown Completed [facility] Rho (d) Immune Globulin Unknown Completed [facility] TDAP Unknown Completed [facility] Rho (d) Immune Globulin Unknown Completed [facility] TDAP Unknown Completed [facility] Rho (d) Immune Globulin Unknown Completed [facility] TDAP Unknown Completed [facility] Rho (d) Immune Globulin Unknown Completed [facility] TDAP Unknown Completed [facility] Rho (d) Immune Globulin Unknown Completed [facility] TDAP Unknown Completed [facility] Rho (d) Immune Globulin Unknown Completed [facility] TDAP Unknown Completed [facility] Rho (d) Immune Globulin Unknown Completed [facility] TDAP Unknown Completed [facility] Rho (d) Immune Globulin Unknown Completed [facility] TDAP Unknown Completed [facility] Rho (d) Immune Globulin Unknown Completed [facility] TDAP Unknown Completed [facility] Rho (d) Immune Globulin Unknown Completed [facility] TDAP Unknown Completed [facility] Rho (d) Immune Globulin Unknown Completed [facility] TDAP Unknown Completed [facility] Rho (d) Immune Globulin Unknown Completed [facility] TDAP Unknown Completed [facility] Rho (d) Immune Globulin Unknown Completed [facility] TDAP Unknown Completed [facility] Rho (d) Immune Globulin Unknown Completed [facility] TDAP Unknown Completed [facility] Rho (d) Immune Globulin Unknown Completed [facility] TDAP Unknown Completed [facility] Rho (d) Immune Globulin Unknown Completed [facility] TDAP Unknown Completed [facility] Rho (d) Immune Globulin Unknown Completed [facility] TDAP Unknown Completed [facility] Rho (d) Immune Globulin Unknown Completed [facility] TDAP Unknown Completed [facility] Rho (d) Immune Globulin Unknown Completed [facility] TDAP Unknown Completed [facility] Rho (d) Immune Globulin Unknown Completed [facility] TDAP Unknown Completed [facility] Rho (d) Immune Globulin Unknown Completed [facility] TDAP Unknown Completed [facility] Rho (d) Immune Globulin Unknown Completed [facility] TDAP Unknown Completed [facility] Rho (d) Immune Globulin Unknown Completed [facility] TDAP Unknown Completed [facility] Rho (d) Immune Globulin Unknown Completed [facility] Rho (d) Immune Globulin Unknown Completed [facility] TDAP Unknown Completed [facility] Rho (d) Immune Globulin Unknown Completed [facility] TDAP Unknown Completed [facility] Rho (d) Immune Globulin Unknown Completed [facility] TDAP Unknown Completed [facility] TDAP Unknown Completed [facility] Rho (d) Immune Globulin Unknown Completed [facility] Rho (d) Immune Globulin Unknown Completed [facility] TDAP Unknown Completed [facility] Vital Signs Vital Name Observation Time Observation Value Comments S ource Systolic blood pressure 2024-07-07 22:00:00 127 mm[Hg] [facility] Diastolic blood pressure 2024-07-07 22:00:00 74 mm[Hg] [facility] Heart rate 2024-07-07 22:00:00 85 /min [facility] Body temperature 2024-07-07 22:00:00 37.11 Margie [facility] Respiratory rate 2024-07-07 22:00:00 16 /min [facility] Oxygen saturation in Arterial blood by Pulse oximetry 2024-07-07 22:00:00 99 /min [facility] Body height 2024-07-07 21:35:00 160 cm [facility] Body weight 2024-07-07 21:35:00 99.791 kg [facility] BMI 2024-07-07 21:35:00 38.97 kg/m2 [facility] Systolic blood pressure 2024-04-02 02:00:00 105 mm[Hg] [facility] Diastolic blood pressure 2024-04-02 02:00:00 60 mm[Hg] [facility] Heart rate 2024-04-02 02:00:00 76 /min [facility] Body temperature 2024-04-02 02:00:00 37.33 Margie [facility] Respiratory rate 2024-04-02 02:00:00 18 /min [facility] Oxygen saturation in Arterial blood by Pulse oximetry 2024-04-02 02:00:00 100 /min [facility] Body height 2024-04-02 00:27:00 160 cm [facility] Body weight 2024-04-02 00:27:00 107.049 kg [facility] BMI 2024-04-02 00:27:00 41.81 kg/m2 [facility] Systolic blood pressure 2024-03-22 23:55:00 143 mm[Hg] [facility] Diastolic blood pressure 2024-03-22 23:55:00 87 mm[Hg] [facility] Heart rate 2024-03-22 23:55:00 73 /min [facility] Body temperature 2024-03-22 23:55:00 37.28 Margie [facility] Respiratory rate 2024-03-22 23:55:00 16 /min [facility] Body height 2024-03-22 23:55:00 162.6 cm [facility] Body weight 2024-03-22 23:55:00 104.327 kg [facility] BMI 2024-03-22 23:55:00 39.48 kg/m2 [facility] Oxygen saturation in Arterial blood by Pulse oximetry 2024-03-22 23:55:00 100 /min [facility] Systolic blood pressure 2024-03-11 17:25:00 111 mm[Hg] [facility] Diastolic blood pressure 2024-03-11 17:25:00 76 mm[Hg] [facility] Heart rate 2024-03-11 17:25:00 68 /min [facility] Body temperature 2024-03-11 17:25:00 36.94 Margie [facility] Respiratory rate 2024-03-11 17:25:00 18 /min [facility] Body height 2024-03-11 17:25:00 160 cm [facility] Body weight 2024-03-11 17:25:00 104.509 kg [facility] BMI 2024-03-11 17:25:00 40.81 kg/m2 [facility] Systolic blood pressure 2024-02-03 01:45:00 121 mm[Hg] [facility] Diastolic blood pressure 2024-02-03 01:45:00 93 mm[Hg] [facility] Heart rate 2024-02-03 01:45:00 101 /min [facility] Respiratory rate 2024-02-03 01:45:00 15 /min [facility] Oxygen saturation in Arterial blood by Pulse oximetry 2024-02-03 01:45:00 100 /min [facility] Body temperature 2024-02-03 00:46:00 37.11 Margie [facility] Body height 2024-02-03 00:46:00 160 cm [facility] Body weight 2024-02-03 00:46:00 105.189 kg [facility] BMI 2024-02-03 00:46:00 41.08 kg/m2 [facility] Systolic blood pressure 2024-01-05 15:20:00 116 mm[Hg] [facility] Diastolic blood pressure 2024-01-05 15:20:00 75 mm[Hg] [facility] Heart rate 2024-01-05 15:20:00 87 /min [facility] Body temperature 2024-01-05 15:20:00 37.06 Margie [facility] Respiratory rate 2024-01-05 15:20:00 18 /min [facility] Body height 2024-01-05 15:20:00 160 cm [facility] Body weight 2024-01-05 15:20:00 104.044 kg [facility] BMI 2024-01-05 15:20:00 40.63 kg/m2 [facility] Systolic blood pressure 2023-05-03 20:49:00 116 mm[Hg] [facility] Diastolic blood pressure 2023-05-03 20:49:00 76 mm[Hg] [facility] Heart rate 2023-05-03 20:49:00 81 /min [facility] Body temperature 2023-05-03 20:49:00 36.56 Margie [facility] Body height 2023-05-03 20:49:00 160 cm [facility] Body weight 2023-05-03 20:49:00 99.655 kg [facility] BMI 2023-05-03 20:49:00 38.92 kg/m2 [facility] Oxygen saturation in Arterial blood by Pulse oximetry 2023-05-03 20:49:00 98 /min [facility] Systolic blood pressure 2023-05-02 19:23:00 116 mm[Hg] [facility] Diastolic blood pressure 2023-05-02 19:23:00 76 mm[Hg] [facility] Heart rate 2023-05-02 19:23:00 81 /min [facility] Body temperature 2023-05-02 19:23:00 37 Margie [facility] Respiratory rate 2023-05-02 19:23:00 16 /min [facility] Body height 2023-05-02 19:23:00 160 cm [facility] Body weight 2023-05-02 19:23:00 99.565 kg [facility] BMI 2023-05-02 19:23:00 38.88 kg/m2 [facility] Oxygen saturation in Arterial blood by Pulse oximetry 2023-05-02 19:23:00 96 /min [facility] Systolic blood pressure 2023-03-30 18:20:00 105 mm[Hg] [facility] Diastolic blood pressure 2023-03-30 18:20:00 72 mm[Hg] [facility] Heart rate 2023-03-30 18:20:00 75 /min [facility] Body temperature 2023-03-30 18:20:00 37 Margie [facility] Body height 2023-03-30 18:20:00 160 cm [facility] Body weight 2023-03-30 18:20:00 99.791 kg [facility] BMI 2023-03-30 18:20:00 38.97 kg/m2 [facility] Oxygen saturation in Arterial blood by Pulse oximetry 2023-03-30 18:20:00 100 /min [facility] Systolic blood pressure 2023-03-28 21:15:00 145 mm[Hg] [facility] Diastolic blood pressure 2023-03-28 21:15:00 87 mm[Hg] [facility] Heart rate 2023-03-28 21:15:00 88 /min [facility] 2023-03-28 21:15:00 37.11 Margie [facility] Respiratory rate 2023-03-28 21:15:00 18 /min [facility] Body height 2023-03-28 21:15:00 160 cm [facility] weight 2023-03-28 21:15:00 99.791 kg [facility] BMI 2023-03-28 21:15:00 38.97 kg/m2 [facility] Oxygen saturation in Arterial blood by Pulse oximetry 2023-03-28 21:15:00 100 /min [facility] Systolic blood pressure 2022-11-23 14:13:00 119 mm[Hg] [facility] Diastolic blood pressure 2022-11-23 14:13:00 80 mm[Hg] [facility] Heart rate 2022-11-23 14:13:00 84 /min [facility] Respiratory rate 2022-11-23 14:13:00 19 /min [facility] Body height 2022-11-23 14:13:00 160 cm [facility] Body weight 2022-11-23 14:13:00 100.744 kg [facility] BMI 2022-11-23 14:13:00 39.34 kg/m2 [facility] Oxygen saturation in Arterial blood by Pulse oximetry 2022-11-23 14:13:00 99 /min [facility] Systolic blood pressure 2022-11-21 20:08:00 129 mm[Hg] [facility] Diastolic blood pressure 2022-11-21 20:08:00 78 mm[Hg] [facility] Heart rate 2022-11-21 20:08:00 95 /min [facility] height 2022-11-21 20:08:00 160 cm [facility] Body weight 2022-11-21 20:08:00 99.791 kg [facility] BMI 2022-11-21 20:08:00 38.97 kg/m2 [facility] Oxygen saturation in Arterial blood by Pulse oximetry 2022-11-21 20:08:00 100 /min [facility] Systolic blood pressure 2022-04-22 18:24:00 130 mm[Hg] [facility] Diastolic blood pressure 2022-04-22 18:24:00 79 mm[Hg] [facility] Heart rate 2022-04-22 18:24:00 80 /min [facility] Body temperature 2022-04-22 18:24:00 36.94 Margie [facility] Respiratory rate 2022-04-22 18:24:00 18 /min [facility] Body height 2022-04-22 18:24:00 160 cm [facility] Body weight 2022-04-22 18:24:00 109.045 kg [facility] BMI 2022-04-22 18:24:00 42.58 kg/m2 [facility] Procedures Procedure Date / Time Performed Performing Clinician Source GENERAL 2024-07-07 21:41:35 Jane Hart [facility] DUPLEX VENOUS LEG LEFT - BY VASCULAR LAB 2024-02-03 02:45:33 Radha Lazcano [facility] D-DIMER 2024-02-03 01:36:00 Radha Lazcano [facility] XR CHEST 1 VW 2024-02-03 01:05:28 Rad[facility]cano [facility] LIP[facility] 2024-02-03 00:52:00 Radha Lazcano [facility] MAGNESIUM 2024-02-03 00:52:00 Radha Lazcano [facility] TROPONIN I 2024-02-03 00:52:00 Radha Lazcano [facility] THYROID STIMULATING HORMONE 2024-02-03 00:52:00 Radha Lazcano [facility] COMP. METABOLIC PANEL (36582) 2024-02-03 00:52:00 Radha Lazcano [facility] CBC WITH DIFF 2024-02-03 00:52:00 Radha [facility]azcano [facility] POCT URINALYSIS W/O SPECIFIC GRAVITY 2024-01-05 00:00:00 Oneil Amor [facility] THYROID STIMULATING HORMONE 2023-03-30 19:29:00 Mirlande Rubio [facility] VITAMIN D, 25-OH 2023-03-30 19:29:00 Mirlande Rubio [facility] CBC WITH DIFF 2023-03-28 23:44:00 Kaycee Diana [facility] LIPASE 2023-03-28 22:50:00 [facility] TROPONIN I 2023-03-28 22:50:00 [facility] COMP. METABOLIC PANEL ([id number]) 2023-03-28 22:50:00 Kaycee Diana [facility] D-DIMER 2023-03-28 22:50:00 Kaycee Diana [facility] POCT TEST 2023-03-28 21:47:00 Sam Diana [facility] URINALYSIS 2023-03-28 21:45:00 [facility] URINE DRUG (IMMUNOASSAY) - COMPREHENSIVE DRUG SCREEN W/O REFLEX 2023-03-28 21:45:00 Kaycee Diana [facility] CONSENT/REFUSAL FOR DIAGNOSIS AND TREATMENT 2023-03-28 21:07:30 Doctor Unassigned, Tripp [facility] INSURANCE CORRESPONDENCE 2022-12-01 05:01:00 Doc tor Unassigned, Tripp [facility] SEDIMENTATION RATE 2022-11-21 22:34:00 Eleazar Puga [facility] PATIENT FINANCIAL POLICY 2022-11-21 19:42:12 Doctor Unassigned, Tripp [facility] HB ECG ROUTINE & RHYTHM STRIP 2022-11-21 19:32:45 Eleazar Puga [facility] Encounters Start Date/Time End Date/Time Encounter Type Admission Type Attending Clinicians Care Facility Care Department Encounter ID Source 2021-08-04 16:31:24 Outpatient P [facility] [id number] [facility] 2025-01-10 13:30:00 2025-01-10 13:30:00 Outpatient R ONEIL AMOR [facility] [id number] [facility] 2024-09-06 11:30:00 2024-09-06 11:30:00 Outpatient R CHACHAONEIL AVILA [facility] [id number] [facility] 2024-08-30 11:30:00 2024-08-30 11:30:00 Outpatient R CHACHAONEIL AVILA [facility] [id number] [facility] 2024-07-07 15:39:00 2024-07-07 16:50:00 Emergency X JANE HART PAMALA [facility] ERT [id number] [facility] 2024-07-07 15:39:00 2024-07-07 16:50:00 Emergency Jane Hart [facility] ..840.114 350.1.13.10 4.2.7.2.686 [id number] [facility] 2024-05-06 15:00:00 2024-05-06 15:00:00 Outpatient R ELIEL GUTIERREZ CHERYAL [facility] [id number] [facility] 2024-04-19 13:00:00 2024-04-19 13:00:00 Outpatient R LIONEL KHOURY ELISHA [facility] [id number] [facility] 2024-04-01 19:32:00 2024-04-01 21:42:00 Emergency X JEANINE MART TASHA [facility] ERT [id number] [facility] 2024-04-01 19:32:00 2024-04-01 21:42:00 Emergency Jeanine Mart [facility] ..840.114 350.1.13.10 4.2.7.2.686 [id number] [facility] 2024-03-22 18:56:00 2024-03-22 20:20:00 Emergency X RAFAEL ALANIZRAFAEL [facility] ERT [id number] [facility] 2024-03-22 18:56:00 2024-03-22 20:20:00 Emergency Rafael Alaniz [facility] 1..840.114 350.1.13.10 4.2.7.2.686 [id number] [facility] 2024-03-20 09:00:00 2024-03-20 09:00:00 Outpatient LIONEL WYATT ELISHA [facility] [id number] [facility] 2024-03-12 15:58:18 2024-03-12 23:59:00 Outpatient R MOUSTAPHA MAGANA VIEN [facility] [id number] [facility] 2024-03-12 15:58:18 2024-03-12 23:59:00 Hospital Encounter Moustapha Magana [facility] 1..840.114 350.1.13.10 4.2.7.2.686 [id number] [facility] 2024-03-11 13:15:00 2024-03-11 13:30:00 Sales Operations Assistant Visit 2, Adc Lab Moustapha Magana 2, Adc Lab [facility] 1..840.114 350.1.13.10 4.2.7.2.686 [id number] [facility] 2024-03-11 11:00:00 2024-03-11 12:42:18 Outpatient R MOUSTAPHA MAGANA VIEN [facility] [id number] [facility] 2024-03-11 11:00:00 2024-03-11 12:42:18 Office Visit Moustapha Magana [facility] 1.2.840.114 350.1.13.10 4.2.7.2.686 [id number] [facility] 2024-03-06 00:00:00 2024-03-08 15:51:50 Patient Secure Msg Oneil Amor [facility] 1.2.840.114 350.1.13.10 4.2.7.2.686 [id number] [facility] 2024-03-08 00:00:00 2024-03-08 13:52:43 Case Management AlondraOneil parra [facility] 1.2.840.114 350.1.13.10 4.2.7.2.686 [id number] [facility] 2024-02-26 14:30:00 2024-02-26 14:30:00 Outpatient LIONEL WYATT ELISHA [facility] [id number] [facility] 2024-01-08 00:00:00 2024-02-10 18:23:44 Patient Secure Msg Doctor Unassigned, Tripp [facility] 1.2.840.114 350.1.13.10 4.2.7.2.686 [id number] [facility] 2024-02-02 19:43:00 2024-02-02 22:47:00 Emergency X RADHA LAZCANO WAKILI [facility] ERT [id number] [facility] 2024-02-02 19:43:00 2024-02-02 22:47:00 Emergency Radha Lazcano [facility] 1.2.840.114 350.1.13.10 4.2.7.2.686 [id number] [facility] 2024-01-08 00:00:00 2024-01-08 21:04:12 Refill Oneil Amor [facility] 1.2.840.114 350.1.13.10 4.2.7.2.686 [id number] [facility] 2024-01-05 10:00:00 2024-01-05 10:56:11 Outpatient R ONEIL AMOR [facility] [id number] [facility] 2024-01-05 10:00:00 2024-01-05 10:56:11 [facility] 1..840.114 350.1.13.10 4.2.7.2.686 [id number] [facility] 2023-06-21 13:40:00 2023-06-21 13:40:00 [facility] [id number] [facility] 2023-05-25 15:20:00 2023-05-25 15:20:00 Outpatient R [facility] [id number] [facility] 2023-05-23 00:00:00 2023-05-23 00:00:00 Telephone Mirlande Rubio [facility] 1.2.840.114 350.1.13.10 4.2.7.2.686 [id number] [facility] 2023-05-23 00:00:00 2023-05-23 00:00:00 Telephone Eleazar Puga [facility] 1.2.840.114 350.1.13.10 4.2.7.2.686 [id number] [facility] 2023-05-12 00:00:00 2023-05-12 00:00:00 Outpatient R ELIEL GUTIERREZ [facility] [id number] [facility] 2023-05-05 00:00:00 2023-05-05 00:00:00 Telephone Alanna Patel [facility] 1..114 350.1.13.10 4.2.7.2.686 [id number] [facility] 2023-05-03 16:00:00 2023-05-03 16:30:00 Office Visit Mirlande Rubio [facility] 1..114 350.1.13.10 4.2.7.2.686 [id number] [facility] 2023-05-03 16:00:00 2023-05-03 16:00:00 Outpatient R MIRLANDE RUBIO [facility] [id number] [facility] 2023-05-02 14:30:00 2023-05-02 15:00:57 Outpatient R ELIEL GUTIERREZ [facility] [id number] [facility] 2023-05-02 14:30:00 2023-05-02 15:00:57 Office Visit Eliel Gutierrez [facility] 1.114 350.1.13.10 4.2.7.2.686 [id number] [facility] 2023-05-01 15:00:00 2023-05-01 15:00:00 Outpatient R ELIEL GUTIERREZ [facility] [id number] [facility] 2023-04-24 15:30:00 2023-04-24 15:30:00 Outpatient R ELIEL GUTIERREZ [facility] [id number] [facility] 2023-04-13 00:00:00 2023-04-13 00:00:00 Patient Secure Msg Doctor Unassigned, Tripp [facility] 1..114 350.1.13.10 4.2.7.2.686 [id number] [facility] 2023-04-05 16:00:00 2023-04-05 16:00:00 Outpatient R RICCO BANKS RUTH [facility] [id number] [facility] 2023-04-04 14:30:00 2023-04-04 14:30:00 Outpatient R GUSTABOCORDELAIYASH FANGELI [facility] [id number] [facility] 2023-04-03 00:00:00 2023-04-03 00:00:00 Patient Secure Msg Doctor Unassigned, Tripp [facility] 1..114 350.1.13.10 4.2.7.2.686 [id number] [facility] 2023-04-01 00:00:00 2023-04-01 00:00:00 Patient Secure Msg Doctor Unassigned, Tripp [facility] 1..114 350.1.13.10 4.2.7.2.686 [id number] [facility] 2023-03-30 14:30:00 2023-03-30 14:31:11 Sales Operations Assistant Visit Lab, Mirlande Mcduffie [facility] 1.840.114 350.1.13.10 4.2.7.2.686 [id number] [facility] 2023-03-30 13:00:00 2023-03-30 14:22:43 Outpatient R MIRLANDE RUBIO [facility] [id number] [facility] 2023-03-30 13:00:00 2023-03-30 14:22:43 Office Visit Mirlande Rubio [facility] 1.840.114 350.1.13.10 4.2.7.2.686 [id number] [facility] 2023-03-28 16:16:00 2023-03-28 20:07:00 Emergency X KAYCEE DIANA [facility] E[facility] [id number] [facility] 2023-03-28 16:16:00 2023-03-28 20:07:00 Emergency Kaycee Diana [facility] 1.2.840.114 350.1.13.10 4.2.7.2.686 [id number] [facility] 2023-03-28 08:30:00 2023-03-28 08:30:00 [id number] 2023-01-23 00:00:00 2023-01-23 00:00:00 [facility] 1..840.114 350.1.13.10 4.2.7.2.686 [id number] [facility] 2022-12-28 16:00:00 2022-12-28 16:00:00 [facility] [id number] [facility] 2022-12-26 00:00:00 2022-12-26 00:00:00 Patient Secure Msg Zain [facility] BUILDING 1..840.114 350.1.13.10 4.2.7.2.686 [id number] [facility] 2022-12-23 00:00:00 2022-12-23 00:00:00 Telephone Zain [facility] BUILDING 1..840.114 350.1.13.10 4.2.7.2.686 [id number] [facility] 2022-12-23 00:00:00 2022-12-23 00:00:00 Telephone Zain [facility] BUILDING 1..840.114 350.1.13.10 4.2.7.2.686 [id number] [facility] 2022-12-22 00:00:00 2022-12-22 00:00:00 Patient Secure Msg Doctor Unassigned, Tripp [facility] 1.2840.114 350.1.13.10 4.2.7.2.686 [id number] [facility] 2022-12-20 14:00:00 2022-12-20 14:15:00 Sales Operations Assistant Visit [facility] Esperanza Franz [facility] 1.840.114 350.1.13.10 4.2.7.2.686 [id number] [facility] 2022-12-20 14:00:00 2022-12-20 14:00:00 Outpatient R ESPERANZA FRANZ STRAHIL [facility] [id number] [facility] 2022-12-14 00:00:00 2022-12-14 00:00:00 Outpatient R MARY KRISHNA [facility] [id number] [facility] 2022-12-13 16:00:00 2022-12-13 16:00:00 [facility] [id number] [facility] 2022-12-08 15:30:00 2022-12-08 15:30:00 [facility] [id number] [facility] 2022-12-08 00:00:00 2022-12-08 00:00:00 Telephone Mary Krishna [facility] 1.2.840.114 350.1.13.10 4.2.7.2.686 [id number] [facility] 2022-12-07 00:00:00 2022-12-07 00:00:00 Outpatient R ZAIN[facility] [id number] [facility] 2022-12-01 00:00:00 2022-12-01 00:00:00 Orders Only Doctor Unassigned, Tripp [facility] 1.2840.114 350.1.13.10 4.2.7.2.686 [id number] [facility] 2022-11-24 00:00:00 2022-11-24 00:00:00 Patient Secure Msg Doctor Unassigned, Tripp [facility] 1.20.114 350.1.13.10 4.2.7.2.686 [id number] [facility] 2022-11-23 09:00:00 2022-11-23 09:37:32 Outpatient R ZAIN [facility] [id number] [facility] 2022-11-23 09:00:00 2022-11-23 09:37:32 Office Visit Zain [facility] NAL BUILDING 1.840.114 350.1.13.10 4.2.7.2.686 [id number] [facility] 2022-11-23 00:00:00 2022-11-23 00:00:00 [facility]phone [facility] 1.284.114 350.1.13.10 4.2.7.2.686 [id number] 044 [id number] [facility] 2022-11-22 00:00:00 2022-11-22 00:00:00 Patient Secure Msg [facility] 1.2840.114 350.1.13.10 4.2.7.2.686 [id number] 044 [id number] [facility] 2022-11-21 17:00:00 2022-11-21 17:00:47 Sales Operations Assistant Visit Lab, Ang [facility] 1.84.114 350.1.13.10 4.2.7.2.686 [id number] [facility] 2022-11-21 15:00:00 2022-11-21 16:31:18 [facility] [id number] [facility] 2022-11-21 15:00:00 2022-11-21 16:31:18 [facility] 1.84.114 350.1.13.10 4.2.7.2.686 [id number] 044 [id number] [facility] 2022-11-21 00:00:00 2022-11-21 00:00:00 Orders Only Doctor Unassigned, Tripp [facility] 1..114 350.1.13.10 4.2.7.2.686 [id number] [id number] [facility] 2022-11-21 00:00:00 2022-11-21 00:00:00 [facility]phone [facility] 1.84.114 350.1.13.10 4.2.7.2.686 [id number] 044 [id number] [facility] 2022-11-11 16:00:00 2022-11-11 16:00:00 Outpatient R JOANNEMIRLANDE [facility] [id number] [facility] 2022-11-10 00:00:00 2022-11-10 00:00:00 Patient Secure M[facility] 1.84.114 350.1.13.10 4.2.7.2.686 [id number] [id number] [facility] 2022-10-25 13:00:00 2022-10-25 13:00:00 Outpatient R ELEAZAR PUGA [facility] [id number] [facility] 2022-10-14 11:45:00 2022-10-14 12:00:00 Sales Operations Assistant Visit Lab, Dale [facility] 1.2.840.114 350.1.13.10 4.2.7.2.686 [id number] [facility] 2022-10-14 11:45:00 2022-10-14 11:45:00 Outpatient R ELEAZAR PUGA [facility] [id number] [facility] 2022-10-12 00:00:00 2022-10-12 00:00:00 Patient Secure Msg [facility] 1.2.840.114 350.1.13.10 4.2.7.2.686 [id number] [facility] 2022-10-11 16:00:00 2022-10-11 16:00:00 Outpatient R ELEAZAR PUGA [facility] [id number] [facility] 2022-09-13 16:30:00 2022-09-13 17:19:53 Outpatient R ELEAZAR PUGA [facility] [id number] [facility] 2022-09-13 16:30:00 2022-09-13 17:19:53 [facility] 1.2.840.114 350.1.13.10 4.2.7.2.686 [id number] [facility] 2022-08-30 15:00:00 2022-08-30 15:00:00 Outpatient R ELEAZAR PUGA [facility] [id number] [facility] 2022-05-13 13:30:00 2022-05-13 13:30:00 Outpatient R LIONEL KHOURY [facility] [id number] [facility] 2022-04-22 13:00:00 2022-04-22 14:07:49 Outpatient R SAMSON WALKER [facility] [id number] [facility] 2022-04-22 13:00:00 2022-04-22 14:07:49 Office Visit Samson Walker [facility] 1.2.840.114 350.1.13.10 4.2.7.2.686 [id number] [facility] 2022-04-22 13:00:00 2022-04-22 14:07:49 Outpatient R SAMSON WALKER [facility] [id number] [facility] 2022-03-18 00:00:00 2022-03-18 00:00:00 Patient Secure Msg Zain [facility] 1.2.840.114 350.1.13.10 4.2.7.2.686 [id number] [id number] [facility] 2022-03-16 15:00:00 2022-03-16 23:59:00 [facility] [id number] [facility] 2022-03-16 15:00:00 2022-03-16 15:00:00 Outpatient [facility] [id number] [facility] 2022-03-15 11:15:00 2022-03-15 11:30:00 Laboratory Only Only, Adc Test Zain [facility] 1..840.114 350.1.13.10 4.2.7.2.686 [id number] [facility] 2022-03-15 11:15:00 2022-03-15 11:15:00 Outpatient R [facility] [id number] [facility] 2022-02-22 00:00:00 2022-02-22 00:00:00 Telephone [facility] 1.2.840.114 350.1.13.10 4.2.7.2.686 [id number] [facility] 2022-02-22 00:00:00 2022-02-22 00:00:00 Telephone [facility] 1.2.840.114 350.1.13.10 4.2.7.2.686 [id number] [facility] 2022-02-22 00:00:00 2022-02-22 00:00:00 Telephone Zain [facility] 1.2.840.114 350.1.13.10 4.2.7.2.686 [id number] 059 [id number] [facility] 2022-02-22 00:00:00 2022-02-22 00:00:00 Telephone Zain [facility] BUILDING 1.2.840.114 350.1.13.10 4.2.7.2.686 [id number] 059 [id number] [facility] 2022-02-14 16:00:00 2022-02-14 23:59:00 Outpatient R ZAIN [facility] [id number] [facility] 2022-02-14 16:00:00 2022-02-14 23:59:00 Outpatient R ZAIN [facility] [id number] [facility] 2022-02-10 00:00:00 2022-02-10 00:00:00 Telephone Zain [facility] BUILDING 1.2.840.114 350.1.13.10 4.2.7.2.686 [id number] 059 [id number] [facility] 2021-12-08 00:00:00 2021-12-08 00:00:00 [facility] 1.2.840.114 350.1.13.10 4.2.7.2.686 [id number] 059 [id number] [facility] 2021-12-07 00:00:00 2021-12-07 00:00:00 Patient Secure [facility] 1.2.840.114 350.1.13.10 4.2.7.2.686 [id number] 059 [id number] [facility] 2021-12-03 00:00:00 2021-12-03 00:00:00 Patient Secure M[facility] 1.2.840.114 350.1.13.10 4.2.7.2.686 [id number] 059 [id number] [facility] 2021-12-02 10:46:04 2021-12-02 11:13:00 Outpatient [facility] [id number] [facility] 2021-12-02 11:00:00 2021-12-02 11:00:00 Outpatient R [facility] [id number] [facility] 2021-12-01 08:00:00 2021-12-01 08:35:02 Office Visit Zain [facility] BUILDING 1.2.840.114 350.1.13.10 4.2.7.2.686 [id number] 059 [id number] [facility] 2021-12-01 08:00:00 2021-12-01 08:35:02 Outpatient R [facility] [id number] [facility] 2021-12-01 08:00:00 2021-12-01 08:35:02 Office Visit Zain [facility] BUILDING 1.2.840.114 350.1.13.10 4.2.7.2.686 [id number] 059 [id number] [facility] 2021-12-01 08:00:00 2021-12-01 08:35:02 Outpatient R MARY KRISHNA [facility] [id number] [facility] 2021-12-01 08:00:00 2021-12-01 08:35:02 [id number] 2021-11-22 00:00:00 2021-11-22 00:00:00 Orders Only Doctor Unassigned, Tripp [facility] 1.2.840.114 350.1.13.10 4.2.7.2.686 [id number] [facility] 2021-09-16 13:30:00 2021-09-16 13:30:00 Outpatient R ELEAZAR PUGA [facility] [id number] [facility] 2021-08-24 09:00:00 2021-08-24 10:19:36 [facility] 1.2.840.114 350.1.13.10 4.2.7.2.686 [id number] 044 [id number] [facility] 2021-08-24 09:00:00 2021-08-24 10:19:36 Outpatient R ELEAZAR PUGA [facility] [id number] [facility] 2021-08-24 09:00:00 2021-08-24 09:00:00 Outpatient R ELEAZAR PUGA [facility] [id number] [facility] 2021-08-18 13:15:00 2021-08-18 14:56:02 Outpatient R MOUSTAPHA MAGANA [facility] [id number] [facility] 2021-08-18 13:15:00 2021-08-18 14:56:02 Routine Visit Magana, Moustapha [facility] 1.2840.114 350.1.13.10 4.2.7.2.686 [id number] [facility] 2021-08-16 22:40:00 2021-08-16 22:41:00 Emergency X CHRISTOPHE SÁNCHEZ [facility] ERT [id number] [facility] 2021-08-16 22:40:00 2021-08-16 22:41:00 Emergency Christophe Sánchez B [facility] 1.2840.114 350.1.13.10 4.2.7.2.686 [id number] 084 [id number] [facility] 2021-08-16 21:21:00 2021-08-16 22:11:00 Outpatient X MOUSTAPHA MAGANA [facility] PADDY [id number] [facility] 2021-08-16 21:21:00 2021-08-16 22:11:00 Emergency Moustapha Magana [facility] 1.840.114 350.1.13.10 4.2.7.2.686 [id number] [facility] 2021-08-14 19:15:00 2021-08-16 15:05:00 Inpatient X MOUSTAPHA MAGANA [facility] [id number] [facility] 2021-08-14 19:15:00 2021-08-16 15:05:00 Hospital Encounter Moustapha Magana [facility] 1.84.114 350.1.13.10 4.2.7.2.686 [id number] [facility] 2021-08-16 09:00:00 2021-08-16 09:00:00 Outpatient R [facility] [id number] [facility] 2021-08-15 07:25:00 2021-08-15 13:02:00 Anesthesia Event Edgar Dotson [facility] 1.2.840.114 350.1.13.10 4.2.7.2.686 [id number] [id number] [facility] 2021-08-14 00:00:00 2021-08-14 00:00:00 Nurse Triage TrayYesenia [facility] 1.2.840.114 350.1.13.10 4.2.7.2.686 [id number] [facility] 2021-08-12 09:00:00 2021-08-12 10:07:36 Outpatient R IZZY [facility] [id number] [facility] 2021-08-12 09:00:00 2021-08-12 10:07:36 Routine Visit [facility], [facility] 1.2840.114 350.1.13.10 4.2.7.2.686 [id number] 134 [id number] [facility] 2021-08-11 13:15:00 2021-08-11 13:15:00 Outpatient R MOUSTAPHA MAGANA [facility] [id number] [facility] 2021-08-10 00:00:00 2021-08-10 00:00:00 Patient Secure Msg [facility] 1.2840.114 350.1.13.10 4.2.7.2.686 [id number] 134 [id number] [facility] 2021-08-09 12:00:00 2021-08-09 12:15:00 Sales Operations Assistant Visit 1, Adc Lab Moustapha Magana [facility] 1.2.840.114 350.1.13.10 4.2.7.2.686 [id number] [facility] 2021-08-09 10:00:00 2021-08-09 11:33:08 Outpatient R MOUSTAPHA MAGANA [facility] [id number] [facility] 2021-08-09 10:00:00 2021-08-09 11:33:08 Routine Visit Room, Adc Nst [facility] 1.2.840.114 350.1.13.10 4.2.7.2.686 [id number] 134 [id number] [facility] 2021-08-05 08:45:00 2021-08-05 08:45:00 Outpatient R [facility] [id number] [facility] 2021-08-04 12:39:00 2021-08-04 16:10:00 Outpatient P MOUSTAPHA MAGANA [facility] [id number] [facility] 2021-08-04 12:39:00 2021-08-04 16:10:00 Hospital Encounter Moustapha Magana [facility] 1.2.840.114 350.1.13.10 4.2.7.2.686 [id number] [facility] 2021-08-04 09:45:00 2021-08-04 12:15:41 Outpatient R MOUSTAPHA MAGANA [facility] [id number] [facility] 2021-08-04 09:45:00 2021-08-04 12:15:41 Routine Visit [facility]oustapha [facility] 1..840.114 350.1.13.10 4.2.7.2.686 [id number] 134 [id number] [facility] 2021-08-03 08:00:00 2021-08-03 08:30:00 Sales Operations Assistant Visit Ultrasound, Adc Toshia Wu [facility] 1.2.840.114 350.1.13.10 4.2.7.2.686 [id number] 134 [id number] [facility] 2021-08-03 08:00:00 2021-08-03 08:00:00 Outpatient P TOSHIA BARAJAS SHANNON [facility] [id number] [facility] 2021-07-29 00:00:00 2021-07-29 00:00:00 Patient Secure Msg Moustapha Magana [facility] BUILDING 1.2.840.114 350.1.13.10 4.2.7.2.686 [id number] 134 [id number] [facility] 2021-07-29 00:00:00 2021-07-29 00:00:00 Patient Secure Msg Doctor Unassigned, Tripp [facility] BUILDING 1.2.840.114 350.1.13.10 4.2.7.2.686 [id number] 134 [id number] [facility] 2021-07-28 13:15:00 2021-07-28 13:17:03 Sales Operations Assistant Visit 2, Adc Lab Moustpaha Magana [facility] BUILDING 1.2.840.114 350.1.13.10 4.2.7.2.686 [id number] [facility] 2021-07-28 13:15:00 2021-07-28 13:15:00 Outpatient R MOUSTAPHA MAGANA [facility] [id number] [facility] 2021-07-28 10:45:00 2021-07-28 12:27:55 Routine Visit Moustapha Magana [facility] BUILDING 1.2.840.114 350.1.13.10 4.2.7.2.686 [id number] 134 [id number] [facility] 2021-07-16 00:00:00 2021-07-16 00:00:00 Patient Secure Msg Moustapha Magana [facility] BUILDING 1.2.840.114 350.1.13.10 4.2.7.2.686 [id number] 134 [id number] [facility] 2021-07-16 00:00:00 2021-07-16 00:00:00 Patient Secure Msg [facility] 1.2.840.114 350.1.13.10 4.2.7.2.686 [id number] 134 [id number] [facility] 2021-07-13 13:33:36 2021-07-13 14:15:32 Routine Visit Moustapha Magana [facility] BUILDING 1.2.840.114 350.1.13.10 4.2.7.2.686 [id number] 134 [id number] [facility] 2021-07-13 13:15:00 2021-07-13 14:15:32 [facility] [id number] [facility] 2021-06-30 16:00:00 2021-06-30 16:00:00 Outpatient R [facility] [id number] [facility] 2021-06-29 11:24:21 2021-06-29 12:02:34 Routine Visit Moustapha Magana [facility] BUILDING 1.2.840.114 350.1.13.10 4.2.7.2.686 [id number] 134 [id number] [facility] 2021-06-29 11:00:00 2021-06-29 11:25:51 Outpatient P TOSHIA BARAJAS SHANNON [facility] [id number] [facility] 2021-06-29 11:00:00 2021-06-29 11:25:51 Outpatient TOSHIA DANIELS SHANNON [facility] [id number] [facility] 2021-06-29 10:56:01 2021-06-29 11:25:51 Sales Operations Assistant Visit Ultrasound, Adc Toshia Wu [facility] 1.2.840.114 350.1.13.10 4.2.7.2.686 [id number] 134 [id number] [facility] 2021-06-23 09:00:00 2021-06-23 09:00:00 Outpatient P [facility] [id number] [facility] 2021-06-23 09:00:00 2021-06-23 09:00:00 Outpatient P [facility] [id number] [facility] 2021-06-22 00:00:00 2021-06-22 00:00:00 Patient Secure Msg Moustapha Magana [facility] BUILDING 1.2.840.114 350.1.13.10 4.2.7.2.686 [id number] 134 [id number] [facility] 2021-06-17 13:05:55 2021-06-17 14:07:46 Routine Visit Moustapha Magana [facility] BUILDING 1.2.840.114 350.1.13.10 4.2.7.2.686 [id number] 134 [id number] [facility] 2021-06-17 13:00:00 2021-06-17 14:07:46 Outpatient R MOUSTAPHA MAGANA [facility] [id number] [facility] 2021-06-08 14:30:00 2021-06-08 14:30:00 Outpatient R MOUSTAPHA MAGANA [facility] [id number] [facility] 2021-06-08 13:06:02 2021-06-08 13:34:35 Nurse Visit Nurse, [facility] Moustapha Magana [facility] BUILDING 1.2.840.114 350.1.13.10 4.2.7.2.686 [id number] 134 [id number] [facility] 2021-06-08 08:20:42 2021-06-08 08:35:42 Sales Operations Assistant Visit 2, [facility] Moustapha Magana [facility] BUILDING 1.2.840.114 350.1.13.10 4.2.7.2.686 [id number] 353 [id number] [facility] 2021-06-03 10:33:03 2021-06-03 11:48:31 Sales Operations Assistant Visit 2, Adc Lab [facility]oustapha [facility] BU[facility] 1.2.840.114 350.1.13.10 4.2.7.2.686 [id number] [facility] 2021-06-03 10:00:00 2021-06-03 10:00:00 Outpatient R MOUSTAPHA MAGANA [facility] [id number] [facility] 2021-06-03 00:00:00 2021-06-03 00:00:00 Patient Secure Msg Doctor Unassigned, Tripp [facility] 1.2.840.114 350.1.13.10 4.2.7.2.686 [id number] [id number] [facility] 2021-06-03 00:00:00 2021-06-03 00:00:00 Case Management Columba Dill [facility] 1.2.840.114 350.1.13.10 4.2.7.2.686 [id number] 134 [id number] [facility] 2021-05-20 15:38:31 2021-05-20 16:28:19 Routine Visit Moustapha Magana [facility] 1.2.840.114 350.1.13.10 4.2.7.2.686 [id number] 134 [id number] [facility] 2021-05-20 15:30:00 2021-05-20 15:30:00 Outpatient R MOUSTAPHA MAGANA [facility] [id number] [facility] 2021-04-26 11:37:34 2021-04-26 12:22:57 Routine Visit Moustapha Magana [facility] 1.2.840.114 350.1.13.10 4.2.7.2.686 [id number] 134 [id number] [facility] 2021-04-26 11:00:00 2021-04-26 11:00:00 Outpatient R MOUSTAPHA MAGANA [facility] [id number] [facility] 2021-04-22 10:31:00 2021-04-22 11:46:00 Sales Operations Assistant Visit Ultrasound, Max Perez [facility] 1.2.840.114 350.1.13.10 4.2.7.2.686 [id number] [facility] 2021-04-22 10:00:00 2021-04-22 10:00:00 Outpatient P [facility] [id number] [facility] 2021-04-22 10:00:00 2021-04-22 10:00:00 Outpatient P MAX SEAY [facility] [id number] [facility] 2021-04-22 00:00:00 2021-04-22 00:00:00 Case Management Moustapha Magana [facility] 1.2.840.114 350.1.13.10 4.2.7.2.686 [id number] 134 [id number] [facility] 2021-04-05 00:00:00 2021-04-05 00:00:00 Telephone Moustapha Magana [facility] 1.2.840.114 350.1.13.10 4.2.7.2.686 [id number] 134 [id number] [facility] 2021-04-05 00:00:00 2021-04-05 00:00:00 Telephone Moustapha Magana [facility] 1.2.840.114 350.1.13.10 4.2.7.2.686 [id number] 134 [id number] [facility] 2021-03-25 15:00:00 2021-03-25 15:55:18 Outpatient R MARY KRISHNA [facility] [id number] [facility] 2021-03-25 14:45:22 2021-03-25 15:05:22 Office Visit Mary Krishna [facility] Building 1.2.840.114 350.1.13.10 4.2.7.2.686 [id number] [facility] 2021-03-25 14:05:15 2021-03-25 14:20:15 Routine Visit MaganaMoustapha Prem [facility] 1.2.840.114 350.1.13.10 4.2.7.2.686 [id number] 134 [id number] [facility] 2021-03-25 00:00:00 2021-03-25 00:00:00 Orders Only Doctor Unassigned, Tripp [facility] 1.2840.114 350.1.13.10 4.2.7.2.686 [id number] [facility] 2021-03-25 00:00:00 2021-03-25 00:00:00 Orders Only Doctor Unassigned, Tripp [facility] 1.2840.114 350.1.13.10 4.2.7.2.686 [id number] [facility] 2021-03-16 15:55:35 2021-03-16 16:49:42 Routine Visit Moustapha Magana Prem [facility] 1.2.840.114 350.1.13.10 4.2.7.2.686 [id number] 134 [id number] [facility] 2021-03-16 16:00:00 2021-03-16 16:00:00 Outpatient R MOUSTAPHA MAGANA [facility] [id number] [facility] 2021-03-16 00:00:00 2021-03-16 00:00:00 Patient Secure Msg Moustapha Magana [facility] 1.2.840.114 350.1.13.10 4.2.7.2.686 [id number] 134 [id number] [facility] 2021-02-25 13:23:30 2021-02-25 14:32:38 [facility] 1.2.840.114 350.1.13.10 4.2.7.2.686 [id number] 134 [id number] [facility] 2021-02-25 13:15:00 2021-02-25 13:15:00 Outpatient R MOUSTAPHA MAGANA [facility] [id number] [facility] 2021-02-01 00:00:00 2021-02-01 00:00:00 Telephone Moustapha Magana [facility] Building 1.2.840.114 350.1.13.10 4.2.7.2.686 [id number] [facility] 2021-02-01 00:00:00 2021-02-01 00:00:00 Patient Secure Msg Moustapha Magana [facility] 1.2.840.114 350.1.13.10 4.2.7.2.686 [id number] 134 [id number] [facility] 2021-01-29 11:46:20 2021-01-29 12:01:20 Sales Operations Assistant Visit 1, [facility] Lab Moustapha Magana [facility] 1.2.840.114 350.1.13.10 4.2.7.2.686 [id number] [facility] 2021-01-29 11:00:00 2021-01-29 11:00:00 Outpatient R MOUSTAPHA MAGANA [facility] [id number] [facility] 2021-01-28 14:02:08 2021-01-28 15:38:20 [facility] 1.2.840.114 350.1.13.10 4.2.7.2.686 [id number] [facility] 2021-01-28 14:00:00 2021-01-28 14:00:00 Outpatient MOUSTAPHA DEL CASTILLO [facility] [id number] [facility] 2021-01-28 00:00:00 2021-01-28 00:00:00 Orders Only Doctor Unassigned, Tripp [facility] 1.2.840.114 350.1.13.10 4.2.7.2.686 [id number] [facility] Results Test Description Test Time Test Comments Results Result Co mments Source [facility]22* Test Item Value Reference Range Interpretation Comme nts MAGNESIUM (test code = 5664978957) 2.2 mg/dL 1.7-2.4 Lab Interpretation (test cod e = 50164-0) Normal [facility] [id number] 02:08:05Exam: XR CHEST 1 VW, 02/02/2024 8:00 PM. Ordering Physician: RADHA LAZCANO. History: palpitations . Technique: One view of the chest. Comparison: None available at the time of dictation. Findings: No focal consolidation. No pneumothorax or effusion. Normal size of thecardiac silhouette. No acute osseous finding on this single view.[facility]10-13-39 02:02:59* Test Item Value Reference Range Interpretation Comments D-DIMER (test code = 0011217356) 0.48 See_Comment [Automated message] The system which [...] a diagnosis. Lab Interpretation (test code = 42590-4) Normal [facility] [id number] 01:44:33* Test Item Value Reference Range Interpretation Comme nts TROPONIN I (test code = 6288697934) <=0.034 MADAI (test code = MADAI) Reference [...] of biotin. Lab Interpretation (test code = 51329-9) Normal [facility]. METABOLIC PANEL (41050)2024-02-03 01:41:23* Test Item Value Reference Range Interpretation Comme nts NA (test code = 3795786903) 140 mmol/L 135-145 K (test code = 4848738933) 2.9 mmol/L 3.5-5.0 LL CL (test code = 3831314914) 106 mmol/L 98-108 CO2 TOTAL (test code = 9954751636) 25 mmol/L 23-31 AGAP (test code = 3583782487) 9 2-16 BUN (test code = 8206697027) 8 mg/dL 7-23 GLUCOSE (test code = 0925690585) 104 mg/dL 70-110 CREATININE (test code = 2160-0) 0.80 mg/dL 0.50-1.04 TOTAL BILI (test code = 9847184694) 0.9 mg/dL 0.1-1.1 CALCIUM (test code = 9894509158) 8.8 mg/dL 8.6-10.6 T PROTEIN (test code = 8081269625) 7.6 g/dL 6.3-8.2 ALBUMIN (test code = 9760887766) 4.3 g/dL 3.5-5.0 ALK PHOS (test code = 7691870824) 68 U/L 34-122 ALTv (test code = 1742-6) 15 U/L 5-35 AST(SGOT) (test code = 7678267203) 22 U/L 13-40 eGFR (test code = 98649-7) 97.5 mL/min/1.73m2 CKD-EPI eGFR (2020). Assuming creatinine has been stable day-to-day for at least three months, the eGFR indicates Category G1 (>= 90 mL/min/1.73 m2) Lab Interpretation (test code = 11670-8) [facility] [id number] 01:32:52* Test Item Value Reference Range Interpretation Comme nts LIPASE (test code = 9184304764) 264 U/L 0-220 H Lab Interpretation (test cod e = 37929-8) Abnormal [facility] WITH [id number] 01:19:54* Test Item Value Reference Range Interpretation [...] 33.0 g/dL 31.6-35.1 RDW-SD (test code = 18910-2) 38.5 fL 39.0-49.9 L RDW-CV (test code = 788-0) 12.7 % 12.0-15.5 PLT (test code = 777-3) 278 166-358 MPV (test code = 49746-1) 10.4 fL 9.5-12.9 NRBC/100 WBC (test code = 0408305875) 0.0 0.0-10.0 NRBC x10^3 (test code = 6627447005) See_Comment [Automated messa ge] The system which generated this result transmitted reference range: 10*3/?L. The reference range was not used to interpret this result as normal/abnormal. GRAN MAT (NEUT) % (test code = 770-8) 57.3 % IMM GRAN % (test code = 4339912413) 0.20 % LYMPH % (test code = 736-9) 34.9 % MONO % (test code = 5905-5) 4.9 % EOS % (test code = 713-8) 1.7 % BASO % (test code = 706-2) 1.0 % GRAN MAT x10^3(ANC) (test code = 5905670845) 5.26 10*3/uL 1.88-7.09 IMM GRAN x10^3 (test code = 2216109524) 0.00-0.06 LYMPH x10^3 (test code = 731-0) 3.21 10*3/uL 1.32-3.29 MONO x10^3 (test code = 742-7) 0.45 10*3/uL 0.33-0.92 EOS x10^3 (test code = 711-2) 0.16 10*3/uL 0.03-0.39 BASO x10^3 (test code = 704-7) 0.09 10*3/uL 0.01-0.07 H Lab Interpretation (test code = 06399-2) Abnormal [facility] Urinalysis w/o Specific [id number] 15:48:00* Test Item Value Reference Range Interpretation [...] = 3257) negative Negative - Negati ve [facility] Urinalysis w/o Specific [id number] 15:48:00* Test Item Value Reference Range Interpretation [...] = 3257) negative Negative - Negati ve [facility] [id number] 21:47:00* Test Item Value Reference Range Interpretation Comme nts POCT PREG (test code = 1605) Negative On board controls acceptable with C Line (test code = 3574) Yes Lab Interpretation (test cod e = 28038-2) Normal [facility] [id number] 05:13:53* Test Item Value Reference Range Interpretation Comme nts ESR (test code = 31841-6) 7 See_Comment [Automated message] The system which generated this result transmitted reference range: 0 - 20 mm/HR. The reference range was not used to interpret this result as normal/abnormal. Lab Interpretation (test code = 32855-2) Normal [facility] [id number] 05:13:53* Test Item Value Reference Range Interpretation Comme nts ESR (test code = 36828-2) 7 See_Comment [Automated message] The system which generated this result transmitted reference range: 0 - 20 mm/HR. The reference range was not used to interpret this result as normal/abnormal. Lab Interpretation (test code = 27493-4) Normal [facility]
[2024-09-05] MEDS ORDERED: FAMOTIDINE 20 MG/2 ML VIAL IV ONE (02:46)
[2024-09-05] MEDS ORDERED: NA CHLORIDE 0.9% 1,000 ML ONE (02:46)
[2024-09-05] MEDS ORDERED: ASPIRIN 81 MG CHEWABLE TABLET ONE (02:46)
[2024-09-05 02:48] LABS: PT Prothrombin Time 10.7 SECONDS (9.4-12.5); Protime INR 1.02
[2024-09-05 02:48] LABS: Sqamous Epithelial <5 /HPF (None Seen); Urine Bacteria None Seen /HPF (<20); Urine Bilirubin NEGATIVE (Negative); Urine Blood Negative (Negative); Urine Clarity Turbid (Clear); Urine Color Colorless (Yellow); Urine Culture Reflex Order NOT NEEDED; Urine Glucose NEGATIVE (Negative); Urine Ketones NEGATIVE (Negative); Urine Microscopic Reflex YN ORDER UMIC; Urine Mucus Slight /HPF (None Seen); Urine Nitrite NEGATIVE (Negative); Urine Protein NEGATIVE (Negative); Urine RBC None Seen /HPF (None Seen); Urine Urobilinogen Normal (Normal); Urine WBC <5 /HPF (<5); Urine pH 6.5 (5.0-7.0)
[2024-09-05 02:50] LABS: Absolute Basophils 0.1 K/uL (0-0.5); Absolute Eosinophils 0.3 K/uL (0-0.5); Absolute Lymphocytes (CBC) 3.9 K/uL (0.7-4.9); Absolute Monocytes 0.8 K/uL (0.1-1.3); Absolute Neutrophil 6.4 K/uL (1.8-8.0); Basophils % 0.9 % (0-1.3); Eosinophils % 2.2 % (0-4.4); Hematocrit 37.5 % (36.0-45.0); Hemoglobin 12.8 g/dL (12.0-15.0); MCV 79.4 fL (80-100); MPV 8.3 fL (7.6-11.3); Monocytes % 6.9 % (3.3-12.3); Nucleated Red Blood Cells % 0.1 % (0-0); Platelets 327 thou/uL (152-406); RBC Red Blood Cell Count 4.73 M/uL (3.86-4.86); Red Cell Distribution Width 13.8 % (12.1-15.2)
[2024-09-05 02:58] LABS: ALT/SGPT 20 U/L (13-56); AST/SGOT 11 U/L (15-37); Albumin 3.2 g/dL (3.4-5.0); Albumin/Globulin Ratio 0.9 (1.1-1.8); Alkaline Phosphatase 68 U/L (45-117); Anion Gap 9.5 mEq/L (5.0-15.0); BUN Blood Urea Nitrogen 12 mg/dL (7-18); Bicarbonate 25 mEq/L (21-32); Bilirubin Total 0.3 mg/dL (0.2-1.0); Globulin 3.5 g/dL (2.3-3.5); Glomerular Filtration Rate 87 ml/min (=/>90); Glucose Level 108 mg/dL (74-106); Magnesium 2.2 mg/dL (1.6-2.4); NT PRO-BNP 28 pg/mL (<125); Potassium 3.5 mEq/L (3.5-5.1); Protein, Total 6.7 g/dL (6.4-8.2); Sodium Level 139 mEq/L (136-145)
[2024-09-05 03:07] LABS: Bilirubin Direct < 0.2 mg/dL (0-0.2); Bilirubin Indirect, Calculated 0.1 mg/dL (0.2-0.8); Troponin High Sensitivity < 3.0 pg/mL (<58.9)
--- NOTE | 2024-09-05 04:50 | RAD REPORT ---
CTA THORAX - PULMONARY ARTERIES HISTORY: Suspected pulmonary embolus. COMPARISON: None. TECHNIQUE: Intravenous low osmolar contrast. Coronal and sagittal reformations including 3D maxim um intensity projections. This exam was performed according to our departmental dose-optimization program, which includes autom ated exposure control, adjustment of the mA and/or kV according to patient size and/or use of iterative reconstruction technique. FINDINGS: PULMONARY ARTERIAL SYSTEM: Contrast bolus is adequate. No CT evidence for pulmonary embolism. CARDIAC: Normal. AORTA/VASCULAR: No aneurysm. LYMPH NODES/MEDIASTINUM: No thoracic adenopathy. CENTRAL AIRWAYS: Central airways are patent. LUNGS: No pulmonary infiltrates or masses. PLEURA: Normal. ESOPHAGUS: Collapsed and not well assessed by CT, without obvious abnormality. THYROID: Negative, where seen. CHEST WALL: Normal. UPPER ABDOMEN: Normal. THORACIC SKELETAL: No acute finding. ADDITIONAL CHEST FINDINGS: None. IMPRESSION: 1. No evidence of acute pulmonary embolus. 2. No acute thoracic findings. Electronically signed by: Robb Bearden MD 09/05/2024 04:47 AM [facility] Z9 Due to temporary technical issues with the PACS/Miso reporting system, reports are being crystal d by the in-house radiologist without review as a courtesy to ensure prompt reporting the interpreting radiologist is fully responsible for the content of the report. Transcribed Date/Time: 09/05/2024 4:50 AM
--- NOTE | 2024-09-05 05:38 | ER ---
Nurse's Notes [facility] Name: Marivel Loya Age: 39 yrs Sex: Female : 1985 Arrival Date: 09/05/2024 Time: 01:58 Bed 4 Private MD: Diagnosis: Chest pain, unspecified;Anxiety disorder, unspecified;Dyspnea Presentation: 09/05 02:06 Chief complaint: Patient states: woke up feeling left shoulder pain, nausea, chest ha1 pressure, and shortness of breath. 02:06 Coronavirus screen: Client denies travel out of the [place] in the last 14 days. Ebola ha1 Screen: No symptoms or risks identified at this time. Initial Sepsis Screen: Does the patient meet any 2 criteria? No. Patient's initial sepsis screen is negative. Does the patient have a suspected source of infection? No. Patient's initial sepsis screen is negative. Risk Assessment: Do you want to hurt yourself or someone else? Patient reports no desire to harm self or others. Onset of symptoms was September 05, 2024. 02:06 Method Of Arrival: Ambulatory ha1 02:06 Acuity: JOHN 2 ha1 Triage Assessment: 02:06 General: Appears uncomfortable, Behavior is cooperative. Pain: Complains of pain in ha1 left shoulder Pain currently is 8 out of 10 on a pain scale. Quality of pain is described as aching, throbbing. Neuro: Level of Consciousness is awake, alert, obeys commands, Oriented to person, place, time, situation. Cardiovascular: Capillary refill < 3 seconds Patient's skin is warm and dry. Respiratory: Reports shortness of breath at rest Airway is patent Respiratory effort is even, unlabored, Respiratory pattern is regular, symmetrical, Onset: The symptoms/episode began/occurred the patient has moderate shortness of breath. GI: Abdomen is round non-distended, obese. : No signs and/or symptoms were reported regarding the genitourinary system. Derm: Skin is pink, warm \T\ dry. 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 - Infectious Disease History:: Denies. - Social history:: Smoking status: Patient denies any tobacco usage or history of. Screenin:47 [facility] ED Fall Risk Assessment (Adult) History of falling in the last 3 months, ha1 including since admission No falls in past 3 months (0 pts) Confusion or Disorientation No (0 pts) Intoxicated or Sedated No (0 pts) Impaired Gait No (0 pts) Mobility Assist Device Used No (0 pt) Altered Elimination No (0 pt) Score/Fall Risk Level 0 - 2 = Low Risk Oriented to surroundings, Maintained a safe environment, Educated pt \T\ family on fall prevention, incl call for assistance when getting out of bed, Hourly rounding (assess needs \T\ fall precautionary measures) done. Abuse screen: Denies threats or abuse. Denies injuries from another. Nutritional screening: No deficits noted. Tuberculosis screening: No symptoms or risk factors identified. Assessment: 02:51 General: Appears in no apparent distress. uncomfortable, Behavior is cooperative, cp4 appropriate for age, anxious. Pain: Denies pain. Neuro: Level of Consciousness is awake, alert, obeys commands, Oriented to person, place, time, situation. Cardiovascular: Patient's skin is warm and dry. Rhythm is sinus rhythm. Respiratory: Airway is patent Respiratory effort is even, unlabored, Breath sounds are clear bilaterally. GI: No signs and/or symptoms were reported involving the gastrointestinal system. : No signs and/or symptoms were reported regarding the genitourinary system. EENT: No signs and/or symptoms were reported regarding the EENT system. Derm: No signs and/or symptoms reported regarding the dermatologic system. Musculoskeletal: No signs and/or symptoms reported regarding the musculoskeletal system. 05:05 Reassessment: Patient appears in no apparent distress at this time. Patient and/or bm8 family updated on plan of care and expected duration. Pain level reassessed. Patient is alert, oriented x 3, equal unlabored respirations, skin warm/dry/pink. Patient denies pain at this time. Patient states feeling better. Patient states symptoms have improved. 05:40 Reassessment: No changes from previously documented assessment. Patient and/or family bm8 updated on plan of care and expected duration. Pain level reassessed. Patient is alert, oriented x 3, equal unlabored respirations, skin warm/dry/pink. Patient denies pain at this time. Patient states feeling better. Patient states symptoms have improved. Vital Signs: 02:06 BP 140 / 100; Pulse 110; Resp 20 S; Temp 98.9(O); Pulse Ox 99% on R/A; Weight 102.06 ha1 kg; Height 5 ft. 7 in. ; Pain 8/10; 02:59 BP 109 / 70; Pulse 92; Resp 18; Pulse Ox 100% ; cp4 03:58 BP 106 / 62; Pulse 88; Resp 18; Pulse Ox 100% ; cp4 05:05 BP 98 / 56; Pulse 84; Resp 17; Temp 98.9; Pulse Ox 97% ; Pain 0/10; bm8 05:40 BP 94 / 53; Pulse 86; Resp 18; Temp 98.9; Pulse Ox 98% ; Pain 0/10; bm8 02:06 Body Mass Index 35.24 (102.06 kg, 170.18 cm) ha1 02:06 Pain Scale: Adult ha1 05:05 Pain Scale: Adult bm8 05:40 Pain Scale: Adult bm8 Start Coma Score: 05:05 Eye Response: spontaneous(4). Motor Response: obeys commands(6). Verbal Response: bm8 oriented(5). Total: 15. 05:40 Eye Response: spontaneous(4). Motor Response: obeys commands(6). Verbal Response: bm8 oriented(5). Total: 15. ED Course: 02:02 Patient arrived in ED. gm2 02:11 Saroj Lemos MD is Attending Physician. gudelia 02:34 PREGU Sent. vk 02:34 Urinalysis w/ reflexes Sent. vk 02:35 Basic Metabolic Panel Sent. vk 02:35 CBC with Diff Sent. vk 02:35 LFT's Sent. vk 02:35 Magnesium Sent. vk 02:35 PT-INR Sent. vk 02:35 NT PRO-BNP Sent. vk 02:35 Troponin HS Sent. vk 02:40 Triage completed. ha1 02:42 Loni Patel is Primary Nurse. cp4 02:51 No provider procedures requiring assistance completed. Inserted saline lock: 22 gauge cp4 in right forearm, using aseptic technique. 02:51 Bed in low position. Call light in reach. Side rails up X2. cp4 02:51 Arm band placed on right wrist. bm8 02:53 XRAY Chest (1 view) In Process Unspecified. EDMS 03:38 CT Chest For PE Angio In Process Unspecified. EDMS 05:05 Provided Education on: post er care. Client placed on continuous cardiac and pulse bm8 oximetry monitoring. NIBP monitoring applied. industrial economics teacher on. Pulse ox on. NIBP on. 05:37 Robert Pérez MD is Referral Physician. gudelia 05:41 IV discontinued, intact, bleeding controlled, No redness/swelling at site. Pressure bm8 dressing applied. Administered Medications: 02:50 Drug: NS 0.9% IV 1000 ml IV at 1000 ml once; to be given as a bolus over 60 minutes cp4 Route: IV; Rate: 1000 ml; Site: right forearm; 05:08 Follow up: Response: No adverse reaction; IV Status: Completed infusion; IV Intake: bm8 1000ml 02:50 Drug: Aspirin PO Chewable Tablet 162 mg PO once Route: PO; cp4 05:08 Follow up: Response: No adverse reaction bm8 02:50 Not Given (Patient does not have ridee): ativan1 mg IVP once cp4 02:50 Not Given (Patient Refused): [id number] mg IVP once; dilute with 10 mL 0.9% NaCl; cp4 give over 2 minutes Medication: 02:51 VIS not applicable for this client. cp4 Intake: 05:08 IV: 1000ml; Total: 1000ml. bm8 Outcome: 05:37 Discharge ordered by . [facility] 05:41 Discharged to home ambulatory, bm8 05:41 Condition: stable 05:41 Discharge instructions given to patient, family, Instructed on discharge instructions, follow up and referral plans. no drinking with medication, no driving heavy equipment, medication usage, safety practices, Demonstrated understanding of instructions, follow-up care, medications, 05:41 Prescriptions given X 2, bm8 05:48 Patient left the ED. bm8 Signatures: Dispatcher [employer] EDMS Saroj Lemos MD MD cha Ayala, Heidy, RN RN ha1 Loni Patel cp4 Lexie Hernandez gm2 Maddie Ni Brad RN RN bm8 Corrections: (The following items were deleted from the chart) 02:45 02:06 Chief complaint: Patient states: woke up feeling left shoulder pain and shortness ha1 of breath ha1 05:41 05:40 Reassessment: No changes from previously documented assessment. bm8 bm8
--- NOTE | 2024-09-05 05:38 | EDPHYS ---
Physician Documentation [facility] Name: Marivel Loya Age: 39 yrs Sex: Female : 1985 Arrival Date: 09/05/2024 Time: 01:58 Bed 4 Private MD: ED Physician Saroj Lemos HPI: 09/05 03:13 This 39 yrs old Female presents to ER via Ambulatory with complaints of gudelia Shortness Of Breath, Chest Pressure. 03:13 The patient has shortness of breath at rest, with light activity. Onset: The gudelia symptoms/episode began/occurred just prior to arrival, this morning. Duration: The symptoms are continuous, and are steadily getting worse. The patient's shortness of breath is aggravated by nothing, is alleviated by nothing. Associated signs and symptoms: Pertinent positives: chest pain, non-productive cough, nausea. Severity of symptoms: At their worst the symptoms were moderate in the emergency department the symptoms are unchanged. The patient has not experienced similar symptoms in the past. 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 - Infectious Disease History:: Denies. - Social history:: Smoking status: Patient denies any tobacco usage or history of. ROS: 03:14 Constitutional: Negative for fever, chills, and weight loss, Eyes: Negative for injury, gudelia pain, redness, and discharge, ENT: Negative for injury, pain, and discharge, Neck: Negative for injury, pain, and swelling, Abdomen/GI: Negative for abdominal pain, nausea, vomiting, diarrhea, and constipation, Back: Negative for injury and pain, : Negative for injury, bleeding, discharge, and swelling, MS/Extremity: Negative for injury and deformity, Skin: Negative for injury, rash, and discoloration, Neuro: Negative for headache, weakness, numbness, tingling, and seizure, Psych: Negative for depression, anxiety, suicide ideation, homicidal ideation, and hallucinations, Allergy/Immunology: Negative for hives, rash, and allergies, Endocrine: Negative for neck swelling, polydipsia, polyuria, polyphagia, and marked weight changes, Hematologic/Lymphatic: Negative for swollen nodes, abnormal bleeding, and unusual bruising, 03:14 Cardiovascular: Positive for chest pain, 03:14 Respiratory: Positive for cough, shortness of breath, Exam: 03:14 Constitutional: This is a well developed, well nourished patient who is awake, alert, gudelia and in no acute distress. Head/Face: Normocephalic, atraumatic. Eyes: Pupils equal round and reactive to light, extra-ocular motions intact. Lids and lashes normal. Conjunctiva and sclera are non-icteric and not injected. Cornea within normal limits. Periorbital areas with no swelling, redness, or edema. ENT: Nares patent. No nasal discharge, no septal abnormalities noted. Tympanic membranes are normal and external auditory canals are clear. Oropharynx with no redness, swelling, or masses, exudates, or evidence of obstruction, uvula midline. Mucous membranes moist. Neck: Trachea midline, no thyromegaly or masses palpated, and no cervical lymphadenopathy. Supple, full range of motion without nuchal rigidity, or vertebral point tenderness. No Meningismus. Chest/axilla: Normal chest wall appearance and motion. Nontender with no deformity. No lesions are appreciated. Cardiovascular: Regular rate and rhythm with a normal S1 and S2. No gallops, murmurs, or rubs. Normal PMI, no JVD. No pulse deficits. Respiratory: Lungs have equal breath sounds bilaterally, clear to auscultation and percussion. No rales, rhonchi or wheezes noted. No increased work of breathing, no retractions or nasal flaring. Abdomen/GI: Soft, non-tender, with normal bowel sounds. No distension or tympany. No guarding or rebound. No evidence of tenderness throughout. Back: No spinal tenderness. No costovertebral tenderness. Full range of motion. Skin: Warm, dry with normal turgor. Normal color with no rashes, no lesions, and no evidence of cellulitis. MS/ Extremity: Pulses equal, no cyanosis. Neurovascular intact. Full, normal range of motion., bilateral aka Neuro: Awake and alert, GCS 15, oriented to person, place, time, and situation. Cranial nerves II-XII grossly intact. Motor strength 5/5 in all extremities. Sensory grossly intact. Cerebellar exam normal. Normal gait. Psych: Awake, alert, with orientation to person, place and time. Behavior, mood, and affect are within normal limits. 03:14 ECG was reviewed by the Attending Physician. 03:16 ECG was reviewed by the Attending Physician. [facility] Vital Signs: 02:06 BP 140 / 100; Pulse 110; Resp 20 S; Temp 98.9(O); Pulse Ox 99% on R/A; Weight 102.06 ha1 kg; Height 5 ft. 7 in. ; Pain 8/10; 02:59 BP 109 / 70; Pulse 92; Resp 18; Pulse Ox 100% ; cp4 03:58 BP 106 / 62; Pulse 88; Resp 18; Pulse Ox 100% ; cp4 05:05 BP 98 / 56; Pulse 84; Resp 17; Temp 98.9; Pulse Ox 97% ; Pain 0/10; bm8 05:40 BP 94 / 53; Pulse 86; Resp 18; Temp 98.9; Pulse Ox 98% ; Pain 0/10; bm8 02:06 Body Mass Index 35.24 (102.06 kg, 170.18 cm) ha1 02:06 Pain Scale: Adult ha1 05:05 Pain Scale: Adult bm8 05:40 Pain Scale: Adult bm8 Eros Coma Score: 05:05 Eye Response: spontaneous(4). Motor Response: obeys commands(6). Verbal Response: bm8 oriented(5). Total: 15. 05:40 Eye Response: spontaneous(4). Motor Response: obeys commands(6). Verbal Response: bm8 oriented(5). Total: 15. MDM: 02:11 Medical Screening Exam initiated [facility] 03:16 Differential diagnosis: Anemia Anxiety Reaction asthma, Bronchitis CHF exacerbation, gudelia abnormal EKG, acute myocardial infarction, acute pericarditis, anxiety, coronary artery disease chest wall pain, congestive heart failure cholecystitis, Cholelithiasis costochondritis, gastroesophageal reflux disease (GERD), herpes zoster, pancreatitis, peptic ulcer disease, pericarditis, pneumonia, pneumothorax, pulmonary embolus, stable angina, thoracic aortic disection, unstable angina, Myocardial Infarction pneumonia, Pneumothorax pulmonary edema, Pulmonary Embolism reactive airway disease, Unstable Angina. Antibiotic administration: Not indicated. HEART Score: History: Slightly Suspicious (0), ECG: Normal (0), Age: < or = 45 years (0), Risk Factors:. WENDI Risk Score: TOTAL SCORE = 0. Immunization status:. Data reviewed: vital signs, nurses notes, lab test result(s), EKG, radiologic studies, CT scan, plain films. Consideration of Admission/Observation Escalation of care including admission/observation considered. I considered the following discharge prescriptions or medication management in the emergency department Medications were administered in the Emergency Department. See MAR. Independent interpretation of the following test(s) in the Emergency Department EKG: See my EKG interpretation above. Test considered but Not performed: Ultrasound 2 d echo. 09/05 02:20 Order name: Basic Metabolic Panel; Complete Time: 03:28 09/05 02:20 Order name: CBC with Diff; Complete Time: :09/05 02:20 Order name: LFT's; Complete Time: 03:09/05 02:20 Order name: Magnesium; Complete Time: 03:09/05 02:20 Order name: NT PRO-BNP; Complete Time: 03:09/05 02:20 Order name: PT-INR; Complete Time: 03:09/05 02:20 Order name: Troponin HS; Complete Time: 03:28 09/05 02:20 Order name: Urinalysis w/ reflexes; Complete Time: 03:28 09/05 02:20 Order name: PREGU; Complete Time: 03:28 09/05 04:22 Order name: Troponin High Sensitivity 09/05 02:20 Order name: XRAY Chest (1 view) 09/05 02:22 Order name: CT Chest For PE Angio 09/05 02:20 Order name: EKG; Complete Time: 02:21 09/05 03:04 Order name: EKG; Complete Time: 03:04 09/05 02:20 Order name: Cardiac monitoring; Complete Time: :34 09/05 02:20 Order name: EKG - Nurse/Tech; Complete Time: :34 09/05 02:20 Order name: IV Saline Lock; Complete Time: 02:34 09/05 02:20 Order name: Labs collected and sent; Complete Time: 02:09/05 02:20 Order name: O2 Per Protocol; Complete Time: :09/05 02:20 Order name: O2 Sat Monitoring; Complete Time: 02:35 gudelia 09/05 03:04 Order name: EKG - Nurse/Tech; Complete Time: 03:08 gudelia EC:14 Rate is 98 beats/min. Rhythm is regular. QRS [place] is Normal. QRS interval is normal. QT gudelia interval is normal. No Q waves. T waves are Normal. No ST changes noted. Clinical impression: NSR w/ Non-specific ST/T Changes and No evidence of ischemia. Interpreted by me. Reviewed by me. 03:16 Rate is 85 beats/min. Rhythm is regular. QRS [place] is Normal. MI interval is normal. QRS gudelia interval is normal. QT interval is normal. No Q waves. T waves are Normal. No ST changes noted. Clinical impression: NSR w/ Non-specific ST/T Changes and No evidence of ischemia. Interpreted by me. Reviewed by me. Administered Medications: 02:50 Drug: NS 0.9% IV 1000 ml IV at 1000 ml once; to be given as a bolus over 60 minutes cp4 Route: IV; Rate: 1000 ml; Site: right forearm; 05:08 Follow up: Response: No adverse reaction; IV Status: Completed infusion; IV Intake: bm8 1000ml 02:50 Drug: Aspirin PO Chewable Tablet 162 mg PO once Route: PO; cp4 05:08 Follow up: Response: No adverse reaction bm8 02:50 Not Given (Patient does not have ridee): ativan1 mg IVP once cp4 02:50 Not Given (Patient Refused): [id number] mg IVP once; dilute with 10 mL 0.9% NaCl; cp4 give over 2 minutes Disposition Summary: 09/05/24 05:37 Discharge Ordered Notes: Location: Home gudelia Problem: new gudelia Symptoms: have improved gudelia Condition: Stable gudelia Diagnosis - Chest pain, unspecified gudelia - Anxiety disorder, unspecified gudelia - Dyspnea gudelia Followup: gudelia - With: Private Physician - When: 2 - 3 days - Reason: Recheck today's complaints, Continuance of care, Re-evaluation by your physician Followup: gudelia - With: Robert Pérez MD - When: 2 - 3 days - Reason: Recheck today's complaints, Continuance of care, Re-evaluation by your physician Discharge Instructions: - Discharge Summary Sheet gudelia - Nonspecific Chest Pain, Adult gudelia - Chest Wall Pain gudelia - Chest Wall Pain, [id number] gudelia - Nonspecific Chest Pain, Adult, [id number] gudelia - Aspirin and Your Heart gudelia - Supporting Someone With Anxiety gudelia - Managing Anxiety, Adult [facility] Forms: - Medication Reconciliation Form gudelia - Antibiotic Education gudelia - Prescription Opioid Use gudelia - Patient Portal Instructions [facility] - Leadership Thank You Letter [facility] Prescriptions: - Hydroxyzine HCl 25 mg Oral Tablet - take 1 tablet ORAL route every 6 hours As needed; 30 tablet; Refills: 0, [facility] Product Selection Permitted - Pepcid 20 mg Oral tablet - take 1 tablet ORAL route every 12 hours for 21 days; 42 tablet; Refills: 0, [facility] Product Selection Permitted Signatures: Dispatcher [employer] EDMS Saroj Lemos MD MD cha Ayala, Heidy RN RN ha1 Loni Patel cp4 Bartolome Bertrand RN bm8 Corrections: (The following items were deleted from the chart) 02:21 02:21 BASIC METABOLIC PANEL+C.LAB.BRZ ordered. EDMS EDMS 02:21 02:21 CBC+H.LAB.BRZ ordered. EDMS EDMS 02: 02:21 HEPATIC FUNCTION+C.LAB.BRZ ordered. EDMS EDMS 02:21 02:21 MAGNESIUM+C.LAB.BRZ ordered. EDMS EDMS 02:21 02:21 PROBNP+C.LAB.BRZ ordered. EDMS EDMS 02:21 02:21 PROTIME (+INR)+COAG.LAB.BRZ ordered. EDMS EDMS 02:21 02:21 Troponin High Sensitivity+C.LAB.BRZ ordered. EDMS EDMS 02:21 02:21 Urinalysis+U.LAB.BRZ ordered. EDMS EDMS 02:21 02:21 Test, Urine+UC.LAB.BRZ ordered. EDMS EDMS 02:21 02:21 Chest Single View+RAD.RAD.BRZ ordered. EDMS EDMS
--- NOTE | 2024-09-05 06:00 | RAD REPORT ---
EXAM DESCRIPTION: Chest Single View CLINICAL HISTORY: Chest pain;Dyspnea COMPARISON: None TECHNIQUE: Single AP view of the chest. FINDINGS: Lung volumes adequate. Cardiac silhouette is normal in size. No pneumothorax. No large pleural effusion. No focal consolidation. No acute bony finding. IMPRESSION: No evidence of acute cardiopulmonary disease. Electronically signed by: Robb Bearden MD 09/05/2024 03:33 AM [facility] Z9 Due to temporary technical issues with the PACS/Zafgen reporting system, reports are being crystal d by the in-house radiologist without review as a courtesy to ensure prompt reporting the interpreting radiologist is fully responsible for the content of the report. Transcribed Date/Time: 09/05/2024 5:59 AM
[2024-09-05 21:56] VITALS: TEMP 98.9
[2024-09-05 22:01] VITALS: BP 94/53; O2SAT 98
--- NOTE | 2024-09-10 12:36 | EKG ---
Test Date: 2024-09-05 Test Time: 03:08:05 Supervisor Public Message Service: LIZ MEASUREMENT RESULTS: Intervals: Rate: 85 CO: 180 QRSD: 90 QT: 356 QTc: 423 Bassett: P: 66 CO: 180 QRS: 9 T: 38 INTERPRETIVE STATEMENTS: Normal sinus rhythm Low voltage QRS Borderline ECG Compared to ECG 09/05/2024 02:14:34 No significant changes Electronically Signed On 09-10-24 12:23:01 LINE RIDER by Brayan Francisco
--- NOTE | 2024-09-10 12:36 | EKG ---
Test Date: 2024-09-05 Test Time: 02:14:34 Dope Edger: LIZ MEASUREMENT RESULTS: Intervals: Rate: 98 VT: 158 QRSD: 88 QT: 338 QTc: 431 Marlow: P: 55 VT: 158 QRS: 8 T: 49 INTERPRETIVE STATEMENTS: Normal sinus rhythm Low voltage QRS Borderline ECG Compared to ECG 02/04/2024 22:11:06 Ventricular premature complex(es) no longer present Electronically Signed On 09-10-24 12:23:05 JOURNALISM INTERN by Brayan Francisco
== END 2024-09-05 05:48 | disposition home or self-care (01) ==
LOC: ER 01:58
DX: R06.00 Dyspnea, unspecified (principal); R07.9 Chest pain, unspecified; F41.9 Anxiety disorder, unspecified; Z88.5 Allergy status to narcotic agent
CPT/HCPCS: 36415; 71045; 71275; 80048; 80076; 81001; 81025; 83735; 83880; 84484; 85025; 85610; 93005; 96360; 96361; 99285; J7030; Q9967